=== PATIENT | male | born 1965 | race Caucasian/White ===

== ENCOUNTER 2017-08-20 09:16 | Observation (INO) | payer SELFPAY ==
[2017-08-20 09:59] LABS: Absolute Lymphocytes (CBC) 2.1 K/uL (0.7-4.9); Absolute Monocytes 0.7 K/uL (0.1-1.3); Absolute Neutrophil 4.2 K/uL (1.8-8.0); Basophils % 1.1 % (0-1.3); Eosinophils % 1.4 % (0-4.4); Hematocrit 56.5 % (39.6-49.0); Lymphocytes % 29.2 % (15.3-44.8); MCH 31.3 pg (27.0-35.0); MCV 93.1 fL (80-100); MPV 8.7 fL (7.6-11.3); Monocytes % 9.9 % (3.3-12.3); RBC Red Blood Cell Count 6.06 M/uL (4.33-5.43)
[2017-08-20] MEDS ORDERED: NA CHLORIDE 0.9% 1,000 ML ONE ×2 (10:06→10:50)
[2017-08-20 10:21] LABS: Potassium 4.5 mEq/L (3.6-5.0)
[2017-08-20 10:27] LABS: Bilirubin Direct 0.9 mg/dL (0-0.2); Bilirubin Total 3.1 mg/dL (0.3-1.2); Magnesium 1.5 mg/dL (1.8-2.5); Protein, Total 7.7 g/dL (6.0-8.3)
--- NOTE | 2017-08-20 10:27 | EKG ---
Test Date: 2017-08-20 Test Time: 09:36:03 [employer] Associate: OLENA MEASUREMENT RESULTS: Intervals: Rate: 115 TX: QRSD: 86 QT: 380 QTc: 525 [place]: P: TX: QRS: -11 T: 5 INTERPRETIVE STATEMENTS: Atrial fibrillation with rapid ventricular response Nonspecific ST abnormality, probably digitalis effect Abnormal ECG Compared to ECG 01/23/2009 05:22:27 ST (T wave) deviation now present Ventricular premature complex(es) no longer present T-wave abnormality no longer present Possible ischemia no longer present Electronically Signed On 08-20-17 10:26:59 CDT by Juan Nuñez
--- NOTE | 2017-08-20 10:48 | RAD REPORT ---
EXAM DESCRIPTION: CT - Angio Aorta For Dissection - 08/20/2017 9:54 am CLINICAL HISTORY: . Chest and abdominal pain COMPARISON: 2009 CT chest TECHNIQUE: Computed tomography angiography of the chest, abdomen pelvis were obtained. 100 cc Isovue 370 was administered intravenously. Coronal and sagittal reconstruction were performed. All CT scans are performed using dose optimization technique as appropriate and may include automated exposure control or mA/KV adjustment according to patient size. FINDINGS: An aortic dissection is not seen. An aortic aneurysm is not displayed. The celiac, SMA and DORIAN are patent . A lung consolidation is not present. A pericardial effusion is not seen. A pleural effusion is not n oted. Fatty infiltration of the liver is seen Spleen, pancreas adrenals kidneys demonstrate no significant abnormality. The appendix is normal. There no evidence diverticulitis. A left inguinal hernia contains fat IMPRESSION: Negative for an aortic dissection.
--- NOTE | 2017-08-20 10:52 | RAD REPORT ---
EXAM DESCRIPTION: RAD - Chest Single View - 08/20/2017 10:07 am CLINICAL HISTORY: Chest pain. COMPARISON: 01/22/2009 FINDINGS: Portable technique limits examination quality. The lungs are grossly clear. A portion of the left mid lung parenchyma is obscured by the pacer pack. The heart is normal in size. No displaced fractures.Single lead pacer device is present. IMPRESSION: No acute intrathoracic process suspected.
[2017-08-20] MEDS ORDERED: Magnesium Sulfate 2gm IVPB 2 G/50 ML BAG IV ONE (11:03)
[2017-08-20 11:20] LABS: Protime INR 1.3
--- NOTE | 2017-08-20 12:53 | EDPHYS ---
Physician Documentation [facility] Name: Jayson Burns Age: 52 yrs Sex: Male : 1965 Arrival Date: 08/20/2017 Time: 09:19 Bed 8 Private MD: None, None ED Physician Pascual Roach HPI: 08/20 13:03 This 52 yrs old Male presents to ER via Wheelchair with complaints of jr8 Shortness Of Breath, Dizziness. 13:03 The patient has shortness of breath at rest. Onset: The symptoms/episode began/occurred jr8 acutely, today. Duration: The symptoms are continuous. The patient's shortness of breath is aggravated by walking. Associated signs and symptoms: Pertinent positives: chest pain. Severity of symptoms: At their worst the symptoms were moderate in the emergency department the symptoms are unchanged. The patient has not experienced similar symptoms in the past. The patient has not recently seen a physician. Patient stated that he was working and stood up. [place] very short of breath with dizziness and chest tightness. Stated that sometimes he will become like this because of his heart but has never had it this bad. Patient anxious upon arrival to ED. Historical: - Allergies: 09:45 Codeine; iw - Home Meds: 09:45 carvedilol 25 mg oral tab 1 tab 2 times per day [Active]; Eliquis 5 mg oral tab 1 tab 2 iw times per day [Active]; Lasix 80 mg Oral tab 2 times per day [Active]; Spironolactone Oral [Active]; unknown BP med [Active]; - PMHx: 09:45 Atrial Fib; CHF; iw - PSHx: 09:45 Defibrillator; iw - Immunization history:: Adult Immunizations unknown. - Social history:: Smoking status: Patient uses tobacco products, denies chronic smoking, but will smoke occasionally, Patient uses alcohol, on a daily basis. claims drinking about a 6 pack/day. Patient/guardian denies using street drugs. ROS: 13:03 Eyes: Negative for injury, pain, redness, and discharge, ENT: Negative for injury, jr8 pain, and discharge, Neck: Negative for injury, pain, and swelling, Abdomen/GI: Negative for abdominal pain, nausea, vomiting, diarrhea, and constipation, Back: Negative for injury and pain, MS/Extremity: Negative for injury and deformity, Neuro: Negative for headache, weakness, numbness, tingling, and seizure. 13:03 Cardiovascular: Positive for chest pain, Negative for edema, orthopnea, palpitations, paroxysmal nocturnal dyspnea. 13:03 Respiratory: Positive for shortness of breath. 13:03 Skin: Positive for discoloration, of the right arm and left arm. Exam: 13:03 Head/Face: Normocephalic, atraumatic. Eyes: Pupils equal round and reactive to light, jr8 extra-ocular motions intact. Lids and lashes normal. Conjunctiva and sclera are non-icteric and not injected. Cornea within normal limits. Periorbital areas with no swelling, redness, or edema. ENT: Nares patent. No nasal discharge, no septal abnormalities noted. Tympanic membranes are normal and external auditory canals are clear. Oropharynx with no redness, swelling, or masses, exudates, or evidence of obstruction, uvula midline. Mucous membranes moist. Neck: Trachea midline, no thyromegaly or masses palpated, and no cervical lymphadenopathy. Supple, full range of motion without nuchal rigidity, or vertebral point tenderness. No Meningismus. Chest/axilla: Normal chest wall appearance and motion. Nontender with no deformity. No lesions are appreciated. Abdomen/GI: Soft, non-tender, with normal bowel sounds. No distension or tympany. No guarding or rebound. No evidence of tenderness throughout. Back: No spinal tenderness. No costovertebral tenderness. Full range of motion. Neuro: Awake and alert, GCS 15, oriented to person, place, time, and situation. Cranial nerves II-XII grossly intact. Motor strength 5/5 in all extremities. Sensory grossly intact. Cerebellar exam normal. Normal gait. 13:03 Cardiovascular: Rate: tachycardic, Rhythm: irregularly irregular, Pulses: pulse deficits are appreciated, thready, weak, bilateral upper extremities , Heart sounds: normal, normal S1and S2, no S3 or S4, no murmur, no rub, no gallop, Edema: is not appreciated. 13:03 Respiratory: the patient does not display signs of respiratory distress, Respirations: tachypnea, Breath sounds: are clear throughout, no bronchial sounds, no decreased breath sounds, no rales, rhonchi, no stridor, no wheezing. 13:03 Musculoskeletal/extremity: ROM: intact in all extremities, Perfusion: the extremity is cool, mottled, pale, noted to have sluggish capillary refill, Sensation intact. Vital Signs: 09:45 BP 123 / 66; Pulse 118; Resp 24 S; Pulse Ox 100% on R/A; iw 10:33 BP 94 / 67; Pulse 101; Resp 14; Pulse Ox 99% on R/A; ae1 10:53 Temp 97.5(O); Weight 104.33 kg (R); ae1 11:43 BP 111 / 64; Pulse 81; Resp 19; Pulse Ox 97% ; ae1 12:36 BP 95 / 70; Pulse 84; Resp 16; Pulse Ox 97% ; jl7 13:00 BP 96 / 68; Pulse 76; Resp 16; Pulse Ox 97% ; jl7 14:01 BP 117 / 75; Pulse 62; Resp 16; Pulse Ox 100% ; jl7 15:33 BP 100 / 71; Pulse 80; Resp 18; Pulse Ox 100% on R/A; ae1 MDM: 09:34 Patient medically screened. jr8 12:51 Data reviewed: vital signs, nurses notes, lab test result(s), EKG, radiologic studies, jr8 CT scan, plain films, ultrasound, and as a result, I will admit patient. Data interpreted: Pulse oximetry: on room air is 97 %. Interpretation: normal. Counseling: I had a detailed discussion with the patient and/or guardian regarding: the historical points, exam findings, and any diagnostic results supporting the discharge/admit diagnosis, lab results, radiology results, the need for further work-up and treatment in the hospital. Physician consultation: Augusta Berry MD was called at 12:52, was contacted at 12:52, regarding admission, to the telemetry unit. consult, patient's condition, and will see patient. 08/20 09:42 Order name: CPK; Complete Time: 10:54 08/20 09:42 Order name: Ckmb; Complete Time: :54 08/20 09:42 Order name: Basic Metabolic Panel; Complete Time: 10:54 08/20 09:42 Order name: BNP; Complete Time: 10:21 08/20 09:42 Order name: CBC with Diff; Complete Time: 10:13 08/20 09:42 Order name: LFT's; Complete Time: 10:54 08/20 09:42 Order name: Magnesium; Complete Time: :08/20 09:42 Order name: PT-INR; Complete Time: 11:08/20 09:42 Order name: Ptt, Activated; Complete Time: 11:08/20 09:42 Order name: Troponin (emerg Dept Use Only); Complete Time: 10:19 08/20 09:42 Order name: XRAY Chest (1 view); Complete Time: 10:54 08/20 10:47 Order name: Digoxin 08/20 10:48 Order name: Digoxin Level; Complete Time: 11:33 EDMS 08/20 12:36 Order name: Urine Dipstick--Ancillary (enter results); Complete Time: 15:31 ag 08/20 09:42 Order name: EKG; Complete Time: 09:43 08/20 09:42 Order name: Cardiac monitoring; Complete Time: 09:53 08/20 09:42 Order name: EKG - Nurse/Tech; Complete Time: :08/20 09:42 Order name: IV Saline Lock; Complete Time: :08/20 09:42 Order name: Labs collected and sent; Complete Time: 08/20 09:42 Order name: O2 Per Protocol; Complete Time: 08/20 09:42 Order name: O2 Sat Monitoring; Complete Time: :53 08/20 09:42 Order name: Urine Dipstick-Ancillary (obtain specimen); Complete Time: 12:19 08/20 09:42 Order name: CT Aorta for Dissection; Complete Time: 10:50 08/20 12:32 Order name: Upper Ext Artery Bilateral; Complete Time: 14:24 EDMS 08/20 15:53 Order name: US; Complete Time: 16:45 EDMS Administered Medications: 10:03 Drug: NS 0.9% 1000 ml Route: IV; Rate: 1000 ml; Site: right antecubital; jl7 10:45 Follow up: IV Status: Completed infusion jl7 10:53 Drug: NS 0.9% 1000 ml Route: IV; Rate: 1000 ml; Site: right antecubital; ae1 11:30 Follow up: IV Status: Completed infusion jl7 10:55 Drug: Magnesium Sulfate 2 grams Route: IVPB; Infused Over: 2 hrs; Site: right ae1 antecubital; 12:00 Follow up: Response: No adverse reaction; IV Status: Completed infusion jl7 Disposition: 08/20/17 12:53 Hospitalization ordered by Augusta Berry for Inpatient Admission. Preliminary diagnosis are Dehydration, Chest pain, unspecified, Hypotension. - Bed requested for Telemetry/MedSurg (Inpatient). - Status is Inpatient Admission. ae1 - Condition is Stable. - Problem is new. - Symptoms have improved. UTI on Admission? No Addendum: 08/23/2017 08:48 Co-signature as Attending Physician, Pascual Roach MD I agree with the assessment and c parrish plan of care. Signatures: Dispatcher [employer] EDPascual Lorenz MD MD cha Williams, Irene, RN RN iw Marcos Diego PA PA jr8 Catrachita Adame Andrea RN RN ae1 Markel Pak RN RN jl7 Corrections: (The following items were deleted from the chart) 08/20 14:51 12:53 Hospitalization Ordered by Augusta Berry MD for Inpatient Admission. Preliminary ag diagnosis is Dehydration; Chest pain, unspecified; Hypotension. Bed requested for Telemetry/MedSurg (Inpatient). Status is Inpatient Admission. Condition is Stable. Problem is new. Symptoms have improved. UTI on Admission? No. jr8 15:54 14:51 08/20/2017 12:53 Hospitalization Ordered by Augusta Berry MD for Inpatient ae1 Admission. Preliminary diagnosis is Dehydration; Chest pain, unspecified; Hypotension. Bed requested for Telemetry/MedSurg (Inpatient). Status is Inpatient Admission. Condition is Stable. Problem is new. Symptoms have improved. UTI on Admission? No. ag
--- NOTE | 2017-08-20 12:53 | ER ---
Nurse's Notes [facility] Name: Jayson Burns Age: 52 yrs Sex: Male : 1965 Arrival Date: 08/20/2017 Time: 09:19 Bed 8 Private MD: None, None Diagnosis: Dehydration;Chest pain, unspecified;Hypotension Presentation: 08/20 09:31 Presenting complaint: Patient states: got really dizzy, almost passed out and usually iw the feeling goes away but this time it didn't, was working at home, has hx of Afib, CHF, denies CP, c/o SOB, feels like lips are numb, felt like throat was closed. Transition of care: patient was not received from another setting of care. Onset of symptoms was August 20, 2017. 09:31 Method Of Arrival: Wheelchair iw 09:31 Acuity: MARILUZ 2 iw 15:35 Initial Sepsis Screen: Does the patient meet any 2 criteria? RR > 20 per min. HR > 90 ae1 bpm. Does the patient have a suspected source of infection? No. Patient's initial sepsis screen is negative. Triage Assessment: 09:45 General: Appears uncomfortable, Behavior is anxious. Pain: Denies pain. EENT: No signs jl7 and/or symptoms were reported regarding the EENT system. Neuro: Level of Consciousness is awake, alert, obeys commands, Oriented to person, place, time, situation. Cardiovascular: Heart tones S1 S2 present Pulses are palpable in right radial artery and left radial artery Rhythm is atrial fibrillation. Respiratory: Reports shortness of breath at rest Airway is patent Respiratory effort is even, unlabored, Respiratory pattern is regular, symmetrical, Breath sounds are clear bilaterally. Onset: The symptoms/episode began/occurred suddenly, the patient has mild shortness of breath. GI: No signs and/or symptoms were reported involving the gastrointestinal system. : No signs and/or symptoms were reported regarding the genitourinary system. Derm: Skin is skin appears purple to bilateral hands capillary refill >3 secs to bilateral fingers. Musculoskeletal: No signs and/or symptoms reported regarding the musculoskeletal system. Historical: - Allergies: 09:45 Codeine; iw - Home Meds: 09:45 carvedilol 25 mg oral tab 1 tab 2 times per day [Active]; Eliquis 5 mg oral tab 1 tab 2 iw times per day [Active]; Lasix 80 mg Oral tab 2 times per day [Active]; Spironolactone Oral [Active]; unknown BP med [Active]; - PMHx: 09:45 Atrial Fib; CHF; iw - PSHx: 09:45 Defibrillator; iw - Immunization history:: Adult Immunizations unknown. - Social history:: Smoking status: Patient uses tobacco products, denies chronic smoking, but will smoke occasionally, Patient uses alcohol, on a daily basis. claims drinking about a 6 pack/day. Patient/guardian denies using street drugs. Screenin:30 Abuse screen: Denies threats or abuse. Denies injuries from another. Nutritional jl7 screening: No deficits noted. Tuberculosis screening: No symptoms or risk factors identified. Fall Risk IV access (20 points). Total Epps Fall Scale indicates No Risk (0-24 pts). Assessment: 09:45 General: see triage assessment. jl7 10:36 Reassessment: Patient appears in no apparent distress at this time. Patient states he ae1 is feeling better. reports dizziness "only when I cough" Patient states feeling better. Patient states symptoms have improved. 11:30 Reassessment: Patient and/or family updated on plan of care and expected duration. Pain jl7 level reassessed. Patient is alert, oriented x 3, equal unlabored respirations, skin warm/dry/pink. 12:35 Reassessment: Patient appears in no apparent distress at this time. Patient states jl7 feeling better. Cardiovascular: Heart tones S1 S2 present Capillary refill is > 3 seconds in left fingers Rhythm is irregular. Cardiovascular: Capillary refill < 3 seconds in right fingers. 13:30 Reassessment: No changes from previously documented assessment. Patient and/or family jl7 updated on plan of care and expected duration. Pain level reassessed. Patient is alert, oriented x 3, equal unlabored respirations, skin warm/dry/pink. 13:50 Reassessment: Provider at bedside discussing plan of care. jl7 Vital Signs: 09:45 BP 123 / 66; Pulse 118; Resp 24 S; Pulse Ox 100% on R/A; iw 10:33 BP 94 / 67; Pulse 101; Resp 14; Pulse Ox 99% on R/A; ae1 10:53 Temp 97.5(O); Weight 104.33 kg (R); ae1 11:43 BP 111 / 64; Pulse 81; Resp 19; Pulse Ox 97% ; ae1 12:36 BP 95 / 70; Pulse 84; Resp 16; Pulse Ox 97% ; jl7 13:00 BP 96 / 68; Pulse 76; Resp 16; Pulse Ox 97% ; jl7 14:01 BP 117 / 75; Pulse 62; Resp 16; Pulse Ox 100% ; jl7 15:33 BP 100 / 71; Pulse 80; Resp 18; Pulse Ox 100% on R/A; ae1 ED Course: 09:19 Patient arrived in ED. mr 09:20 None, None is Private Physician. mr 09:33 Triage completed. iw 09:34 Marcos Diego PA is PHCP. jr8 09:34 Pascual Roach MD is Attending Physician. jr8 09:41 Inserted saline lock: 18 gauge in right antecubital area, using aseptic technique. ae1 Blood collected. 09:42 Inserted saline lock: 18 gauge in left antecubital area, using aseptic technique. jl7 09:52 Markel Pak RN is Primary Nurse. jl7 09:52 Arm band placed on right wrist. jl7 09:54 CT Aorta for Dissection In Process Unspecified. EDMS 10:00 Patient has correct armband on for positive identification. Bed in low position. Call 7 light in reach. Side rails up X 1. laboratory monitor on. Pulse ox on. NIBP on. 10:05 X-ray completed. Portable x-ray completed in exam room. Patient tolerated procedure jb2 well. 10:08 XRAY Chest (1 view) In Process Unspecified. EDMS 10:21 EKG done, by ED staff. tc 11:43 Digoxin Sent. ae1 12:41 Patient taken to ultrasound. cy 12:52 Augusta Berry MD is Hospitalizing Provider. jr8 13:16 Upper Ext Artery Bilateral In Process Unspecified. EDMS 14:45 Ultrasound completed. Patient tolerated well. cy 15:36 No provider procedures requiring assistance completed. Patient admitted, IV remains in ae1 place. Administered Medications: 10:03 Drug: NS 0.9% 1000 ml Route: IV; Rate: 1000 ml; Site: right antecubital; jl7 10:45 Follow up: IV Status: Completed infusion jl7 10:53 Drug: NS 0.9% 1000 ml Route: IV; Rate: 1000 ml; Site: right antecubital; ae1 11:30 Follow up: IV Status: Completed infusion jl7 10:55 Drug: Magnesium Sulfate 2 grams Route: IVPB; Infused Over: 2 hrs; Site: right ae1 antecubital; 12:00 Follow up: Response: No adverse reaction; IV Status: Completed infusion jl7 Outcome: 12:53 Decision to Hospitalize by Provider. jr8 15:36 Admitted to Tele accompanied by tech, family with patient, via wheelchair, with chart, ae1 Report called to STEVAN Meeks 15:36 Admitted to Tele accompanied by tech, family with patient, via stretcher, room 217. 15:36 Condition: stable 15:36 Condition: stable 15:36 Instructed on the need for admit, Demonstrated understanding of instructions. 15:54 Patient left the ED. ae1 Signatures: Dispatcher [employer] EDDonna Murray mr Burch, Chuck jb2 Stephanie Edwards, RN RN iw Marcos Diego PA PA jr8 Melissa Lucas, fortune teller EKG Ttc Raz Mills RN RN ae1 Markel Pak RN RN jl7 Kim Sen Corrections: (The following items were deleted from the chart) 15:40 15:36 Admitted to Tele ae1 ae1
--- NOTE | 2017-08-20 14:20 | RAD REPORT ---
EXAM DESCRIPTION: VAS - Upper Ext Artery Bilateral - 08/20/2017 1:21 pm CLINICAL HISTORY: Arm pain/arm weakness/cyanosis COMPARISON: None FINDINGS: The waveforms of the right common carotid, right subclavian, right axillary, right brachia l, right radial and right ulnar arteries are triphasic. The waveforms of the left common carotid , left axillary, left brachial, and left radial arteries are triphasic. The waveform of the left ulnar artery is biphasic. An arterial occlusion is not seen. A significant stenosis is not visualized. IMPRESSION: Unremarkable exam
[2017-08-20 15:13] LABS: Urine Blood TRACE (NEG); Urine Glucose NEGATIVE (NEG); Urine Protein NEGATIVE (NEG)
--- NOTE | 2017-08-20 15:53 | RAD REPORT ---
EXAM DESCRIPTION: VASCarotid Artery Bilateral08/20/2017 3:39 pm CLINICAL HISTORY: Syncope COMPARISON: None FINDINGS: The velocity of the right internal carotid artery equals 51 cm/sec. The right ICA/CCA rati o 0.8 The velocity of the left internal carotid artery equals 37 cm/sec. The left ICA/CCA ratio 0.5 Mild plaque is present within the carotid arteries. The vertebral arteries demonstrate antegrade flow IMPRESSION: Mild plaque within the carotid arteries without evidence of a hemodynamically significan t stenosis
[2017-08-20] MEDS ORDERED: ONDANSETRON 4 MG/2 ML VIAL IV PRN (16:14)
[2017-08-20] MEDS ORDERED: ACETAMINOPHEN 500 MG TAB PO PRN (16:14)
[2017-08-20 16:30] VITALS: BMI 34.9
[2017-08-20] MEDS ORDERED: ENOXAPARIN 40 MG/0.4 ML SQ SCH (17:00)
--- NOTE | 2017-08-20 17:03 | P.HP ---
Certification for Inpatient Patient admitted to: Observation With expected LOS: <2 Midnights Patient will require the following post-hospital care: None Practitioner: I am a practitioner with admitting privileges, knowledge of patient current condition, hospital course, and medical plan of care. Services: Services provided to patient in accordance with Admission requirements found in Title 42 Section 412.3 of the Code of Federal Regulations Patient History Date of Service: 08/20/17 Primary Care Provider: OOT Reason for admission: near Syncope History of Present Illness: This is a 52-year-old male with significant past medical history of CHF, atrial fibrillation. Status post defibrillator placement alcohol abuse who presented to the ED complaining of having near-syncopal episode in the morning today. 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 Patient stated that usually he has those feelings which goes away in about 1-2 second however this time unless than usual and thus he decided to come to the ER. In the ER patient was monitored and noted to have bilateral upper extremity that were purple in color and hypotensive. Patient was given some fluids in the ER which resolved this bilateral discoloration along with hypertension. Patient stated that he also has been having a lot of cramps for past couple of days. Patient denies having any fever, nausea vomiting abdominal pain or diarrhea at this time. He does states that he has chills at the time then. Allergies codeine Adverse Reaction (Intermediate, Verified 08/20/17 16:14) Hives/Rash - Past Medical/Surgical History Has patient received pneumonia vaccine in the past: Yes Diabetic: No -: chf -: afib -: icd -: umbilical hernia - Family History Mother -: Heart disease, Cancer Father -: Cancer - Social History Smoking Status: Current every day smoker Alcohol use: Yes CD- Drugs: Yes Caffeine use: No Place of Residence: Home Review of Systems General: As per HPI Physical Examination - Vital Signs Temperature: 97.5 F Blood Pressure: 100/71 Pulse: 80 Respirations: 18 - Physical Exam General: Alert, In no apparent distress, Oriented x3 HEENT: Atraumatic Neck: Supple Respiratory: Clear to auscultation bilaterally, Normal air movement Cardiovascular: Normal S1 S2, Irregular heart rate/rhythm Gastrointestinal: Normal bowel sounds, Soft and benign, Non-distended, No tenderness Musculoskeletal: No tenderness Integumentary: No rashes Neurological: Normal speech, Normal strength at 5/5 x4 extr, Normal tone Lymphatics: No axilla or inguinal lymphadenopathy - Studies Laboratory Data (last 24 hrs) 08/20/17 09:40: PT 15.4 H, INR 1.30, APTT 35.8 08/20/17 09:40: WBC 7.2, Hgb 19.0 H, Hct 56.5 H, Plt Count 223 08/20/17 09:40: B-Natriuretic Peptide 144 H 08/20/17 09:40: Sodium 137, Potassium 4.5, BUN 12, Creatinine 1.52 H, Glucose 121 H, Magnesium 1.5 L, Total Bilirubin 3.1 H, AST 168 H, ALT 119 H, Alkaline Phosphatase 92 Assessment and Plan - Problems (Diagnosis) (1) Near syncope Current Visit: Yes Status: Acute Plan: Pt with Episode of Near Syncope -Head CT negative for acute abnormality -ECHO pending -Carotid u/s with Plaquing -Lab work pending -PT and IV fluids with Caution -Orthostatic pending as well. (2) Alcohol abuse Current Visit: Yes Status: Chronic Plan: Ativan PRN (3) Liver cirrhosis Current Visit: Yes Status: Chronic Plan: Chronic liver Cirrhosis with acute elevation of LFT's -ABD US complete Qualifiers: Hepatic cirrhosis type: alcoholic cirrhosis Ascites presence: without ascites Qualified Code(s): K70.30 - Alcoholic cirrhosis of liver without ascites (4) CHF (congestive heart failure) Current Visit: Yes Status: Acute Plan: Chronic systolic HF -Per Pt his last echo with EF of 35% -S/P Defibrillator placement. -IV fluids with caution Qualifiers: Heart failure type: systolic Heart failure chronicity: chronic Qualified Code(s): I50.22 - Chronic systolic (congestive) heart failure (5) Afib Current Visit: Yes Status: Chronic Plan: Chronic Afib -Will restart home medication Qualifiers: Atrial fibrillation type: chronic Qualified Code(s): I48.2 - Chronic atrial fibrillation (6) Ringworm Current Visit: Yes Status: Acute Plan: Topical Ketoconozole ordered Discharge Plan: Home Plan to discharge in: 24 Hours - Advance Directives Does patient have a Living Will: No Does patient have a Durable POA for Healthcare: No - Code Status/Comfort Care Code Status Assessed: Yes Critical Care: No
--- NOTE | 2017-08-20 17:28 | ECHO ---
HEIGHT: 5 ft 8 in WEIGHT: 230 lb 0 oz DATE OF STUDY: 08/20/[address]: Augusta Berry MD 2-DIMENSIONAL: YES M.MODE: YES DOPPLER: YES COLOR FLOW: YES TDS: PORTABLE: DEFINITY: BUBBLE STUDY: DIAGNOSIS: NEAR SYNCOPE CARDIAC HISTORY: CATHERIZATION: YES SURGERY: NO PROSTHETIC VALVE: NO PACEMAKER: YES MEASUREMENTS (cm) DIASTOLIC (NORMALS) SYSTOLIC (NORMALS) IVSd 0.8 (0.6-1.2) LA Diam 4.1 (1.9-4.0) LVEF 41% LVIDd 4.7 (3.5-5.7) LVIDs 3.7 (2.0-3.5) %FS 20% LVPWd 0.9 (0.6-1.2) Ao Diam 3.2 (2.0-3.7) 2 DIMENSIONAL ASSESSMENT: RIGHT ATRIUM: NORMAL LEFT ATRIUM: DILATED RIGHT VENTRICLE: NORMAL LEFT VENTRICLE: NORMAL TRICUSPID VALVE: NORMAL MITRAL VALVE: NORMAL PULMONIC VALVE: NORMAL AORTIC VALVE: NORMAL PERICARDIAL EFFUSION: NONE AORTIC ROOT: NORMAL LEFT VENTRICULAR WALL MOTION: MILD GLOBAL HYPOKINESIS DOPPLER/COLOR FLOW: MILD TRICUSPID REGURGITATION COMMENTS: MILD TRICUSPID REGURGITATION. NORMAL RIGHT VENTRICULAR SYSTOLIC PRESSURE. TECHNICALLY DIFFICULT STUDY. MILD GLOBAL HYPOKINESIS. TECHNOLOGIST: EMI ROSAS
[2017-08-20 18:31] LABS: Thyroid Stimulating Hormone 0.98 uIU/mL (0.34-5.60)
[2017-08-20 18:32] LABS: CKMB Creatine Kinase MB 12.1 ng/ml (0.3-4.0)
[2017-08-20 18:53] LABS: Urine Appearance CLEAR; Urine Blood NEGATIVE (NEG); Urine Glucose NEGATIVE (NEG); Urine Protein 1+ (NEG); Urine Specific Gravity >=1.030 (1.005-1.030); Urine pH 5.5 (5.0-7.0)
[2017-08-20 18:55] LABS: Urine Bilirubin NEGATIVE (NEG); Urine Color DK YELLOW; Urine Microscopic Reflex ORDER UMIC
[2017-08-20 19:02] LABS: Urine Amorphous Sediment 1+ /HPF (NONE SEEN); Urine Bacteria <20 /HPF (NONE SEEN); Urine Culture Reflex Order REFLEXED; Urine RBC <5 /HPF (NONE SEEN)
--- NOTE | 2017-08-20 20:12 | RAD REPORT ---
EXAM DESCRIPTION: CT - Head Brain Wo Cont - 08/20/2017 7:39 pm CLINICAL HISTORY: Syncope COMPARISON: None. TECHNIQUE: Computed axial tomography of the head was obtained. IV contrast was not requested. All CT scans are performed using dose optimization technique as appropriate and may include automated exposure control or mA/KV adjustment according to patient size. FINDINGS: An intracranial bleed is not seen . The ventricles are normal in caliber. No extra-axial fluid collection is noted. Fluid within the sinuses/ mastoids is not seen. IMPRESSION: No acute intracranial abnormality is seen. If patient's symptoms persist MRI of the bra in would be recommended.
[2017-08-20] MEDS: CARVEDILOL 25 MG TAB PO SCH (20:47)
[2017-08-20] MEDS: APIXABAN 5 MG TABLET PO SCH (20:47)
[2017-08-20] MEDS ORDERED: KETOCONAZOLE CREAM 15 GM TUBE TOP SCH (21:00)
[2017-08-20] MEDS ORDERED: TEMAZEPAM 15 MG CAP PO ONE ×2 (22:58→23:00)
[2017-08-21 01:56] VITALS: O2SAT 95
[2017-08-21 02:15] LABS: CKMB Creatine Kinase MB 8.9 ng/ml (0.3-4.0)
[2017-08-21 05:38] LABS: Absolute Lymphocytes (CBC) 1.9 K/uL (0.7-4.9); Absolute Monocytes 0.6 K/uL (0.1-1.3); Absolute Neutrophil 2.2 K/uL (1.8-8.0); Basophils % 0.5 % (0-1.3); Eosinophils % 2.3 % (0-4.4); Hematocrit 52.1 % (39.6-49.0); Lymphocytes % 39.5 % (15.3-44.8); MCH 31.1 pg (27.0-35.0); MCV 93.9 fL (80-100); MPV 9.1 fL (7.6-11.3); Monocytes % 12.2 % (3.3-12.3); RBC Red Blood Cell Count 5.55 M/uL (4.33-5.43)
[2017-08-21 06:13] LABS: Bilirubin Total 1.7 mg/dL (0.3-1.2); Magnesium 1.9 mg/dL (1.8-2.5); Phosphorus 3.5 mg/dL (2.5-4.3); Potassium 3.4 mEq/L (3.6-5.0); Protein, Total 5.7 g/dL (6.0-8.3)
[2017-08-21] MEDS ORDERED: NA CHLORIDE 0.9% 250 ML ONE (07:41)
[2017-08-21] MEDS: KCL 20 MEQ/100 mL IVPB 20 MEQ/100 ML BAG IV SCH ×2 (07:44→10:25)
[2017-08-21] MEDS ORDERED: ASPIRIN EC 81 MG TAB PO SCH (09:00)
[2017-08-21] MEDS ORDERED: SPIRONOLACTONE 25 MG TABLET PO SCH (09:00)
[2017-08-21] MEDS: CARVEDILOL 25 MG TAB PO SCH (09:00)
[2017-08-21] MEDS: APIXABAN 5 MG TABLET PO SCH (09:15)
[2017-08-21 09:56] LABS: CKMB Creatine Kinase MB 7.5 ng/ml (0.3-4.0)
--- NOTE | 2017-08-21 11:07 | P.SSS ---
Patient History Date of Service: 08/21/17 Primary Care Provider: TOBY Reason for admission: near Syncope History of Present Illness: This is a 52-year-old male with significant past medical history of CHF, atrial fibrillation. Status post defibrillator placement alcohol abuse who presented to the ED complaining of having near-syncopal episode in the morning today. 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 Patient stated that usually he has those feelings which goes away in about 1-2 second however this time unless than usual and thus he decided to come to the ER. In the ER patient was monitored and noted to have bilateral upper extremity that were purple in color and hypotensive. Patient was given some fluids in the ER which resolved this bilateral discoloration along with hypertension. Patient stated that he also has been having a lot of cramps for past couple of days. Patient denies having any fever, nausea vomiting abdominal pain or diarrhea at this time. He does states that he has chills at the time then. Allergies codeine Adverse Reaction (Intermediate, Verified 08/20/17 16:14) Hives/Rash Home Medications: Apixaban [Eliquis *] 5 mg PO BID 08/20/17 Aspirin [Aspirin EC 81 MG] 1 tab PO DAILY 08/20/17 Digoxin [Lanoxin*] 0.125 mg PO DAILY 08/20/17 Spironolactone [Aldactone*] 25 mg PO DAILY 08/20/17 Carvedilol [Coreg*] 12.5 mg PO BID 6AM 6PM #60 tab 08/21/17 Furosemide [Lasix] 40 mg PO BID #60 tablet 08/21/17 - Past Medical/Surgical History Has patient received pneumonia vaccine in the past: Yes Diabetic: No -: chf -: afib -: icd -: umbilical hernia - Family History Mother -: Heart disease, Cancer Father -: Cancer - Social History Smoking Status: Current every day smoker Alcohol use: Yes CD- Drugs: Yes Caffeine use: No Place of Residence: Home Review of Systems General: As per HPI Physical Examination - Vital Signs Temperature: 97.9 F Blood Pressure: 112/57 Pulse: 92 Respirations: 16 Pulse Ox (%): 100 - Physical Exam General: Alert, In no apparent distress HEENT: Atraumatic, PERRLA, Mucous membr. moist/pink, EOMI, Sclerae nonicteric Neck: Supple, 2+ carotid pulse no bruit, No LAD, Without JVD or thyroid abnormality Respiratory: Clear to auscultation bilaterally, Normal air movement Cardiovascular: Regular rate/rhythm, Normal S1 S2 Gastrointestinal: Normal bowel sounds, No tenderness Musculoskeletal: No tenderness Integumentary: No rashes Neurological: Normal gait, Normal speech, Normal strength at 5/5 x4 extr, Normal tone, Normal affect Lymphatics: No axilla or inguinal lymphadenopathy - Studies Laboratory Data (last 24 hrs) 08/20/17 09:40: PT 15.4 H, INR 1.30, APTT 35.8 - Diagnosis (Problem(s)) (1) Near syncope Current Visit: Yes Status: Acute (2) Alcohol abuse Current Visit: Yes Status: Chronic (3) Liver cirrhosis Current Visit: Yes Status: Chronic Qualifiers: Hepatic cirrhosis type: alcoholic cirrhosis Ascites presence: without ascites Qualified Code(s): K70.30 - Alcoholic cirrhosis of liver without ascites (4) CHF (congestive heart failure) Current Visit: Yes Status: Acute Qualifiers: Heart failure type: systolic Heart failure chronicity: chronic Qualified Code(s): I50.22 - Chronic systolic (congestive) heart failure (5) Afib Current Visit: Yes Status: Chronic Qualifiers: Atrial fibrillation type: chronic Qualified Code(s): I48.2 - Chronic atrial fibrillation (6) Ringworm Current Visit: Yes Status: Acute Treatment Summary: Overall during the hospital stay patient remained stable The patient was initially admitted to the hospital for near syncope most likely secondary to polypharmacy vs alcohol abuse. Cardiology was consulted. Who saw the patient here in the hospital and is recommended that his Coreg be cut down to half. Patient had been taking Coreg, Lasix, spironolactone, losartan all at 1 time in the morning time which could be causing his near syncopal episodes. Patient was educated extensively to space out his medication in the unit dose of Coreg. Patient was also educated extensively on alcohol abstinence at this time. While here in the hospital patient was also found to be very dehydrated and thus was given IV fluids along with abdominal ultrasound that was done to evaluate for elevated T biliRubin. Abdominal ultrasound was consistent with liver cirrhosis and no acute findings. Patient was again educated extensively on alcohol abstinence and was asked to follow up with his primary care provider in about 1-2 weeks post discharge from here. Patient was then discharged home under stable condition - Disposition Disposition: ROUTINE DISCHARGE Condition: GOOD Patient Discharge Instructions: Please f/u with PCP and Cardiology in 1 to 2 weeks post discharge. Medication. Coreg 12.5 daily in AM. Lasix 40mg Twice daily in AM and PM. Spironolactone 25mg daily in AM. Digoxin once a day in PM. Hold losartan for now till you see PCP. Keep a BP log to ensure your are not getting hypotensive. Diet: Regular Activity: Ad ashlee
--- NOTE | 2017-08-21 11:49 | RAD REPORT ---
EXAM DESCRIPTION: US - Abdomen Exam Complete - 08/21/2017 10:16 am CLINICAL HISTORY: Cirrhosis COMPARISON: CT study August 20 FINDINGS: Gallbladder size is normal. No gallstones, wall thickening or pericholecystic fluid. Commo n bile duct is normal with no common duct stone identified. The liver is 16 cm in maximum dimension w ith the spleen 10 cm in maximum dimension. No focal liver or spleen lesion. No abnormal nodularity to the liver capsule. Liver parenchymal echogenicity is heterogeneous but not definitive for fatty infi ltration. . The pancreas is normal. No hydronephrosis or suspicious mass in either kidney. Aorta is normal is size. No ascites or bulky lymphadenopathy. IMPRESSION: Heterogeneous liver parenchyma with no focal liver lesion, nodular capsule or other find ings of advanced cirrhosis. No gallbladder or biliary tree dilatation.
[2017-08-21] MEDS ORDERED: KETOCONAZOLE CREAM 15 GM TUBE TOP SCH (12:00)
[2017-08-21 13:01] VITALS: BP 102/71; TEMP 97.6
--- NOTE | 2017-08-21 15:49 | CON ---
Date of Consultation: 08/20/[address] Berry's office 08/20/2017. The patient was seen on 08/20/2017. Reason For Consultation: Short of breath, dizziness, and atrial fibrillation. History Of Present Illness: Mr. Burns is a 52-year-old male, who has a history of chronic atrial f ibrillation, chronic systolic congestive heart failure, status post defibrillator pacemaker. He came in was noted to have negative troponin, negative BNP, negative chest x-ray, normal CTA of the chest, normal CT of the head, normal carotid, did have atrial fibrillation with rapid ventricula r response. He was hypotensive. Echocardiography, ejection fraction of 41% which is chronic, [employer] difficult study. His creatinine is 1.42. He is feeling better today. He normally sees __ . Allergies: CODEINE. Review of Systems: Negative. Social History: Negative. Family History: Noncontributory. Medications: At home include Coreg, Eliquis, Lasix, and Aldactone. Physical Examination: Vital Signs: Stable. He was in atrial fibrillation with rate of 80. HEENT: Negative. Neck: Supple with no bruit. Chest: Clear. Cardiac: Revealed atrial fibrillation. Abdomen: Benign. Extremities: Revealed no clubbing, cyanosis, or edema. Diagnostic Data: As stated earlier. His LFTs are elevated. Impression And Plan: 1.Chronic systolic congestive heart failure that is stable. 2.Chronic atrial fibrillation. 3.Hypotension probably secondary to over medication. . Continue the Eliquis and Lasix an d Aldactone for his congestive heart failure and atrial fibrillation. His echocardiogram was done ye showing ejection fraction 41%. All his workup for presyncope had been negative including car otid, CT head, CT angiogram, chest x-ray. He is having an abdominal ultrasound done for his elevated liver function tests. His ICD seems to be functioning properly. He has not had any shocks. From m y standpoint, we can decrease beta blockers. He can go home whenever it is okay with Dr. Berry. He can see as an outpatient on a lower dose. He should probably have an outpatient Karol can sometimes at his convenience. HEIDI/MICHAEL Voice ID: [id number] Report ID: [id number]
[2017-08-21] MEDS ORDERED: CARVEDILOL 12.5 MG TAB PO SCH (18:00)
== END 2017-08-21 13:09 | disposition home or self-care (01) ==
LOC: ER 09:16 → ERHOLD 12:53 → INTOOBSV 12:53 → 2ND 15:35
PROVIDERS: ADMIT Family Medicine; ATTEND Family Medicine
DX: R55 Syncope and collapse (principal); I95.2 Hypotension due to drugs; K70.30 Alcoholic cirrhosis of liver without ascites; I50.22 Chronic systolic (congestive) heart failure; I48.2 Chronic atrial fibrillation; B35.9 Dermatophytosis, unspecified; F10.10 Alcohol abuse, uncomplicated; Z95.810 Presence of automatic (implantable) cardiac defibrillator; T50.905A Adverse effect of unspecified drugs, medicaments and biological substances, initial encounter
CPT/HCPCS: 36415; 70450; 71045; 71275; 74175; 76700; 80048; 80053; 80061; 80076; 80162; 81003; 81015; 82550; 82553; 83735; 83880; 84100; 84443; 84484; 85025; 85610; 85730; 87086; 87088; 93005; 93306; 93880; 93930; 96361; 96365; 97163; 99285; G0378; J3475; J7030; Q9967

== ENCOUNTER 2017-09-22 11:18 | Inpatient (IN) | payer SELFPAY ==
[2017-09-22] MEDS ORDERED: LEVALBUTEROL 1.25 MG/3 ML NEB ONE (11:59)
[2017-09-22] MEDS ORDERED: METOPROLOL TARTRATE 5 MG/5 ML INJ IV ONE ×2 (12:09→12:21)
[2017-09-22 12:18] LABS: Absolute Lymphocytes (CBC) 1.2 K/uL (0.7-4.9); Absolute Monocytes 0.6 K/uL (0.1-1.3); Absolute Neutrophil 4.5 K/uL (1.8-8.0); Eosinophils % 0.8 % (0-4.4); Hematocrit 49.6 % (39.6-49.0); Lymphocytes % 18.1 % (15.3-44.8); MCH 31.4 pg (27.0-35.0); MPV 9.8 fL (7.6-11.3); Monocytes % 9.3 % (3.3-12.3); RBC Red Blood Cell Count 5.27 M/uL (4.33-5.43)
[2017-09-22 12:21] LABS: Bicarbonate 22 mEq/L (21-31); Glucose Level 123 mg/dL (65-120); Potassium 3.7 mEq/L (3.6-5.0); Sodium Level 139 mEq/L (135-145)
[2017-09-22 12:24] LABS: Protime INR 1.15
[2017-09-22] MEDS ORDERED: DIGOXIN 0.25 MG/ML AMP ONE (12:25)
[2017-09-22 12:28] LABS: ALT/SGPT 66 IU/L (10-60); AST/SGOT 105 IU/L (10-42); Albumin 3.2 g/dL (3.2-5.5); Alkaline Phosphatase 74 IU/L (42-121); BUN Blood Urea Nitrogen 8 mg/dL (6-20); Bilirubin Direct 1.3 mg/dL (0-0.2); Bilirubin Total 3.7 mg/dL (0.3-1.2); Creatine Phosphokinase 286 IU/L (22-269); Magnesium 1.8 mg/dL (1.8-2.5); Protein, Total 6.4 g/dL (6.0-8.3)
--- NOTE | 2017-09-22 13:26 | RAD REPORT ---
EXAM DESCRIPTION: CT - Chest For Pe Angio - 09/22/2017 1:04 pm CLINICAL HISTORY: Chest pain, shortness of breath, productive cough, bilateral lower extremity pain and swelling COMPARISON: Chest exam same date, CT chest January 2009 TECHNIQUE: Dynamically enhanced 3 mm thick images of the chest were obtained during administration o f approximately 150mL Isovue 370 IV contrast. Coronal and oblique reconstruction images were generate d and reviewed. Exam utilizes a protocol to evaluate the pulmonary arterial tree. All CT scans are performed using dose optimization technique as appropriate and may include automated exposure control or mA/KV adjustment according to patient size. FINDINGS: No pulmonary emboli are identified. Far peripheral right lung base branch assessment is li mited due to motion. Likelihood of pulmonary embolism is felt be quite low. The aorta as imaged shows no acute or suspicious finding. Cardiomegaly is present. No pericardial thi ckening or effusion. No suspicious mass or consolidation. There is hazy ground-glass opacification in right upper lobe and right lower lobe. Minimal atelectasis in each lung field. There is small to moderate left-side and m oderate right-sided pleural effusions. No pneumothorax. No pleural based mass. No mediastinal or hilar suspicious masses. No chest wall masses or abnormal axillary lymphadenopathy. IMPRESSION: No pulmonary emboli identified. Interstitial and alveolar opacities are suspicious for a mild failure or volume overload. Small to moderate left-side and moderate right-sided pleural effusions.
--- NOTE | 2017-09-22 13:30 | RAD REPORT ---
EXAM DESCRIPTION: RAD - Chest Single View - 09/22/2017 1:24 pm CLINICAL HISTORY: Shortness of breath, productive cough COMPARISON: August 20, 2017 TECHNIQUE: AP portable chest image was obtained 1224 hours . FINDINGS: Hazy opacification present over the right lower lung field. Interstitial markings overall are increased slightly from the comparison. Cardiac silhouette has increased over the prior study. Va sculature is minimally prominent. Single lead pacemaker remains in place. No pneumothorax or large pl eural effusion identified. No gross bony abnormality seen. No acute aortic findings suspected. IMPRESSION: Heart and vasculature have enlarged since comparison. There is hazy lung parenchymal opa cification, primarily right base. CHF/ volume overload is favored. A mild or early right base pneumonia is not excluded but felt to be unlikely.
--- NOTE | 2017-09-22 13:50 | RAD REPORT ---
EXAM DESCRIPTION: VAS - Extrem Venous W Compress [place] - 09/22/2017 1:26 pm CLINICAL HISTORY: Bilateral leg pain and swelling, shortness of breath COMPARISON: None. TECHNIQUE: Real-time sonographic evaluation of the bilateral lower extremity deep venous systems was performed. FINDINGS: Normal compressibility, flow augmentation, phasic flow and spontaneous flow are identified in the left and right lower extremity deep venous systems. No intraluminal filling defects seen. IMPRESSION: No DVT in either lower extremity.
--- NOTE | 2017-09-22 14:22 | EDPHYS ---
Physician Documentation [facility] Name: Jayson Burns Age: 52 yrs Sex: Male : 1965 Arrival Date: 09/22/2017 Time: 11:20 Bed 7 Private MD: out of town, doctor ED Physician Brad Lowery HPI: 09/22 11:49 This 52 yrs old Male presents to ER via Wheelchair with complaints of kdr Breathing Difficulty. 11:49 The patient has shortness of breath at rest, with light activity. Onset: The kdr symptoms/episode began/occurred gradually, yesterday. Duration: The symptoms are continuous, and are steadily getting worse. The patient's shortness of breath is aggravated by coughing, exertion, light activity, talking, walking. Associated signs and symptoms: Pertinent positives: productive cough, nausea, Pertinent negatives:. 12:10 Severity of symptoms: At their worst the symptoms were moderate in the emergency kdr department the symptoms are unchanged are worse. The patient has not experienced similar symptoms in the past. The patient has not recently seen a physician. Historical: - Allergies: 11:27 Codeine; aj - Home Meds: 11:27 carvedilol 25 mg Oral tab 1 tab 2 times per day [Active]; Eliquis 5 mg Oral tab 1 tab 2 aj times per day [Active]; Lasix 80 mg Oral tab 2 times per day [Active]; Spironolactone Oral [Active]; - PMHx: 11:27 Atrial Fib; CHF; aj - PSHx: 11:27 Defibrillator; aj - Immunization history:: Adult Immunizations up to date. - Social history:: Smoking status: Patient uses tobacco products, smokes one-half pack cigarettes per day. - Ebola Screening: : Patient negative for fever greater than or equal to 101.5 degrees Fahrenheit, and additional compatible Ebola Virus Disease symptoms Patient denies exposure to infectious person Patient denies travel to an Ebola-affected area in the 21 days before illness onset No symptoms or risks identified at this time. ROS: 12:12 Constitutional: Negative for fever, chills, and weight loss, Eyes: Negative for injury, kdr pain, redness, and discharge, ENT: Negative for injury, pain, and discharge, Neck: Negative for injury, pain, and swelling, Abdomen/GI: Negative for abdominal pain, nausea, vomiting, diarrhea, and constipation, Back: Negative for injury and pain, : Negative for injury, bleeding, discharge, and swelling, MS/Extremity: Negative for injury and deformity, Skin: Negative for injury, rash, and discoloration, Neuro: Negative for headache, weakness, numbness, tingling, and seizure activity. Psych: Negative for depression, anxiety, suicide ideation, homicidal ideation, and hallucinations, Allergy/Immunology: Negative for hives, rash, and allergies, Endocrine: Negative for neck swelling, polydipsia, polyuria, polyphagia, and marked weight changes, Hematologic/Lymphatic: Negative for swollen nodes, abnormal bleeding, and unusual bruising. 12:12 Cardiovascular: Positive for palpitations, Negative for edema, orthopnea, paroxysmal nocturnal dyspnea. Exam: 12:15 Constitutional: This is a well developed, well nourished patient who is awake, alert, kdr and in mild to moderate distress. Head/Face: Normocephalic, atraumatic. Eyes: Pupils equal round and reactive to light, extra-ocular motions intact. Lids and lashes normal. Conjunctiva and sclera are non-icteric and not injected. Cornea within normal limits. Periorbital areas with no swelling, redness, or edema. Neck: Trachea midline, no thyromegaly or masses palpated, and no cervical lymphadenopathy. Supple, full range of motion without nuchal rigidity, or vertebral point tenderness. No Meningismus. Chest/axilla: Normal chest wall appearance and motion. Nontender with no deformity. No lesions are appreciated. Respiratory: Lungs have equal breath sounds bilaterally, clear to auscultation and percussion. No rales, rhonchi or wheezes noted. No increased work of breathing, no retractions or nasal flaring. Abdomen/GI: Soft, non-tender, with normal bowel sounds. No distension or tympany. No guarding or rebound. No evidence of tenderness throughout. Back: No spinal tenderness. No costovertebral tenderness. Full range of motion. Skin: Warm, dry with normal turgor. Normal color with no rashes, no lesions, and no evidence of cellulitis. MS/ Extremity: Pulses equal, no cyanosis. Neurovascular intact. Full, normal range of motion. Neuro: Awake and alert, GCS 15, oriented to person, place, time, and situation. Cranial nerves II-XII grossly intact. Motor strength 5/5 in all extremities. Sensory grossly intact. Cerebellar exam normal. Normal gait. Psych: Awake, alert, with orientation to person, place and time. Behavior, mood, and affect are within normal limits. 12:15 Cardiovascular: Rate: tachycardic, Rhythm: irregularly irregular, Pulses: no pulse deficits are appreciated, Heart sounds: Edema: 1+ edema to level of left midcalf, left ankle and left foot, JVD: is not appreciated. 12:15 Respiratory: mild respiratory distress is noted, Respirations: normal, Breath sounds: rales, that are mild, are heard diffusely. Vital Signs: 11:27 BP 214 / 181; Pulse 95; Resp 24; Temp 98.6; Pulse Ox 98% on R/A; Weight 95.25 kg; aj Height 5 ft. 8 in. (172.72 cm); 11:41 BP 135 / 94; Pulse 92; Resp 24; Pulse Ox 97% on R/A; hb 12:05 BP 134 / 81; Pulse 175; Resp 24; Pulse Ox 98% on 10% Nebulizer Mask; hb 12:12 BP 125 / 88; Pulse 145; hb 12:35 BP 129 / 95; Pulse 127; Resp 24; Pulse Ox 96% on R/A; dh3 13:31 BP 135 / 84; Pulse 126; Resp 24; Pulse Ox 99% on R/A; hb 14:30 BP 142 / 100; Pulse 110; Resp 15; Pulse Ox 100% on R/A; hb 15:30 BP 155 / 102; Pulse 116; Resp 25; Pulse Ox 99% on R/A; Pain 0/10; hb 16:22 BP 147 / 101; Pulse 105; Resp 25; Pulse Ox 96% on R/A; hb 11:27 Body Mass Index 31.93 (95.25 kg, 172.72 cm) aj MDM: 14:22 Patient medically screened. kdr 14:34 Data reviewed: vital signs, nurses notes, lab test result(s), EKG, radiologic studies. kdr Counseling: I had a detailed discussion with the patient and/or guardian regarding: the historical points, exam findings, and any diagnostic results supporting the discharge/admit diagnosis, lab results, radiology results, the need for further work-up and treatment in the hospital. 09/22 11:41 Order name: Basic Metabolic Panel; Complete Time: 13:27 kdr 09/22 11:41 Order name: BNP; Complete Time: 13:27 kdr 09/22 11:41 Order name: CBC with Diff; Complete Time: 13:27 kdr 09/22 11:41 Order name: Ckmb; Complete Time: 13:27 kdr 09/22 11:41 Order name: CPK; Complete Time: 13:27 kdr 09/22 11:41 Order name: LFT's; Complete Time: 13:27 kdr 09/22 11:41 Order name: Magnesium; Complete Time: 13:27 kdr 09/22 11:41 Order name: PT-INR; Complete Time: 13:27 kdr 09/22 11:41 Order name: Ptt, Activated; Complete Time: 13:27 kdr 09/22 11:41 Order name: Troponin (emerg Dept Use Only); Complete Time: 13:27 kdr 09/22 11:41 Order name: DD; Complete Time: 13:27 kdr 09/22 11:48 Order name: Blood Culture Adult (2) kdr 09/22 16:45 Order name: Urine Dipstick--Ancillary (enter results) bd 09/22 16:52 Order name: Urine Dipstick-Ancillary EDMS 09/22 11:41 Order name: XRAY Chest (1 view) kdr 09/22 11:41 Order name: EKG; Complete Time: 11:42 kdr 09/22 11:41 Order name: Cardiac monitoring; Complete Time: 12:04 kdr 09/22 11:41 Order name: EKG - Nurse/Tech; Complete Time: 12:04 kdr 09/22 11:41 Order name: IV Saline Lock; Complete Time: 12:04 kdr 09/22 11:41 Order name: Labs collected and sent; Complete Time: 12:22 kdr 09/22 11:41 Order name: O2 Per Protocol; Complete Time: 12:04 kdr 09/22 11:41 Order name: O2 Sat Monitoring; Complete Time: 12:04 kdr 09/22 11:41 Order name: Urine Dipstick-Ancillary (obtain specimen); Complete Time: 16:48 kdr 09/22 12:14 Order name: US Extremity Venous W Compression [place]mar kdr 09/22 12:40 Order name: CT Chest For PE Angio; Complete Time: 13:27 kdr 09/22 16:27 Order name: Diet Heart Healthy; Complete Time: 16:28 iw Administered Medications: 11:59 Drug: Xopenex (3) 1.25 mg Route: Inhalation; hb 12:12 Drug: Lopressor 5 mg Route: IVP; Site: right wrist; hb 12:20 Drug: Lopressor 5 mg Route: IVP; Site: left antecubital; hb 12:27 Drug: Digoxin 0.5 mg Route: IVP; Site: right antecubital; hb 13:15 Follow up: Response: No adverse reaction hb 12:32 Drug: Lopressor 5 mg Route: IVP; Site: right antecubital; hb 16:46 Follow up: Response: No adverse reaction hb Disposition: 09/22/17 14:22 Hospitalization ordered by Faiza Crhistianson for Inpatient Admission. Preliminary diagnosis are Atrial fibrillation and flutter, Hypertensive heart disease, Unspecified combined systolic (congestive) and diastolic (congestive) heart failure. - Bed requested for Telemetry/MedSurg (Inpatient). - Status is Inpatient Admission. hb - Condition is Fair. - Problem is an acute exacerbation. - Symptoms have improved. UTI on Admission? No Signatures: Dispatcher [employer] EDMS Kalyani Bunch Amanda, RN RN aj Brad Lowery MD MD kdr Alka Paredes RN RN hb Corrections: (The following items were deleted from the chart) 16:49 14:22 Hospitalization Ordered by Faiza Christianson MD for Inpatient Admission. Preliminary bd diagnosis is Atrial fibrillation and flutter; Hypertensive heart disease; Unspecified combined systolic (congestive) and diastolic (congestive) heart failure. Bed requested for Telemetry/MedSurg (Inpatient). Status is Inpatient Admission. Condition is Fair. Problem is an acute exacerbation. Symptoms have improved. UTI on Admission? No. kdr 17:13 16:49 09/22/2017 14:22 Hospitalization Ordered by Faiza Christianson MD for Inpatient hb Admission. Preliminary diagnosis is Atrial fibrillation and flutter; Hypertensive heart disease; Unspecified combined systolic (congestive) and diastolic (congestive) heart failure. Bed requested for Telemetry/MedSurg (Inpatient). Status is Inpatient Admission. Condition is Fair. Problem is an acute exacerbation. Symptoms have improved. UTI on Admission? No. bd
--- NOTE | 2017-09-22 14:22 | ER ---
Nurse's Notes [facility] Name: Jayson Burns Age: 52 yrs Sex: Male : 1965 Arrival Date: 09/22/2017 Time: 11:20 Bed 7 Private MD: out of town, doctor Diagnosis: Atrial fibrillation and flutter;Hypertensive heart disease;Unspecified combined systolic (congestive) and diastolic (congestive) heart failure Presentation: 09/22 11:24 Presenting complaint: Patient states: SOB with productive cough and bilateral lower leg aj swelling since yesterday. Patient reports night sweats. Transition of care: patient was not received from another setting of care. Onset of symptoms was September 21, 2017. Risk Assessment: Do you want to hurt yourself or someone else? Patient reports no desire to harm self or others. Care prior to arrival: None. 11:24 Method Of Arrival: Wheelchair aj 11:24 Acuity: MARILUZ 3 aj Triage Assessment: 11:27 General: Appears in no apparent distress. comfortable, Behavior is calm, cooperative, aj appropriate for age. Pain: Denies pain. Neuro: Level of Consciousness is awake, alert, obeys commands, Oriented to person, place, time, situation. Cardiovascular: Edema is 2+ to left ankle and right ankle. Respiratory: Reports shortness of breath at rest cough that is productive, Onset: The symptoms/episode began/occurred yesterday, the patient has mild shortness of breath. Derm: Skin is intact, is healthy with good turgor, Skin is pink, warm \T\ dry. normal. Historical: - Allergies: 11:27 Codeine; aj - Home Meds: 11:27 carvedilol 25 mg Oral tab 1 tab 2 times per day [Active]; Eliquis 5 mg Oral tab 1 tab 2 aj times per day [Active]; Lasix 80 mg Oral tab 2 times per day [Active]; Spironolactone Oral [Active]; - PMHx: 11:27 Atrial Fib; CHF; aj - PSHx: 11:27 Defibrillator; aj - Immunization history:: Adult Immunizations up to date. - Social history:: Smoking status: Patient uses tobacco products, smokes one-half pack cigarettes per day. - Ebola Screening: : Patient negative for fever greater than or equal to 101.5 degrees Fahrenheit, and additional compatible Ebola Virus Disease symptoms Patient denies exposure to infectious person Patient denies travel to an Ebola-affected area in the 21 days before illness onset No symptoms or risks identified at this time. Screenin:12 Abuse screen: Denies threats or abuse. Denies injuries from another. Nutritional hb screening: No deficits noted. Tuberculosis screening: No symptoms or risk factors identified. Fall Risk None identified. Assessment: 11:45 General: Appears distressed, Behavior is cooperative, anxious. Pain: Pain currently is hb 3 out of 10 on a pain scale. Neuro: Level of Consciousness is awake, alert, obeys commands, Oriented to person, place, time, situation. Cardiovascular: Heart tones S1 S2 present Capillary refill < 3 seconds Patient's skin is warm and dry. Rhythm is atrial fibrillation with rapid ventricular response. Respiratory: Airway is patent Trachea midline Respiratory effort is Respiratory pattern is tachypnea Breath sounds with rhonchi bilaterally. GI: No signs and/or symptoms were reported involving the gastrointestinal system. : No signs and/or symptoms were reported regarding the genitourinary system. EENT: No signs and/or symptoms were reported regarding the EENT system. Derm: Skin is intact, is healthy with good turgor, Skin is pink, warm \T\ dry. Musculoskeletal: No signs and/or symptoms reported regarding the musculoskeletal system. 12:11 Reassessment: HR 155-175, irregular. Pt denies CP. Dr. Lowery notified, Lopressor hb administered as ordered. 13:00 Reassessment: Patient appears in no apparent distress at this time. Patient and/or hb family updated on plan of care and expected duration. Pain level reassessed. Patient is alert, oriented x 3, equal unlabored respirations, skin warm/dry/pink. Hr 115-140, Dr. Lowery aware. 14:00 Reassessment: Patient appears in no apparent distress at this time. Patient is alert, hb oriented x 3, equal unlabored respirations, skin warm/dry/pink. HR 105-128, AFIB. Dr. Lowery aware. Admission ordered, awaiting room assignment at this time. 15:00 Reassessment: Patient appears in no apparent distress at this time. No changes from hb previously documented assessment. Patient and/or family updated on plan of care and expected duration. Pain level reassessed. Admission ordered, awaiting floor orders and room assignment at this time. 16:00 Reassessment: Patient appears in no apparent distress at this time. No changes from hb previously documented assessment. Patient and/or family updated on plan of care and expected duration. Pain level reassessed. Patient is alert, oriented x 3, equal unlabored respirations, skin warm/dry/pink. Vital Signs: 11:27 BP 214 / 181; Pulse 95; Resp 24; Temp 98.6; Pulse Ox 98% on R/A; Weight 95.25 kg; aj Height 5 ft. 8 in. (172.72 cm); 11:41 BP 135 / 94; Pulse 92; Resp 24; Pulse Ox 97% on R/A; hb 12:05 BP 134 / 81; Pulse 175; Resp 24; Pulse Ox 98% on 10% Nebulizer Mask; hb 12:12 BP 125 / 88; Pulse 145; hb 12:35 BP 129 / 95; Pulse 127; Resp 24; Pulse Ox 96% on R/A; dh3 13:31 BP 135 / 84; Pulse 126; Resp 24; Pulse Ox 99% on R/A; hb 14:30 BP 142 / 100; Pulse 110; Resp 15; Pulse Ox 100% on R/A; hb 15:30 BP 155 / 102; Pulse 116; Resp 25; Pulse Ox 99% on R/A; Pain 0/10; hb 16:22 BP 147 / 101; Pulse 105; Resp 25; Pulse Ox 96% on R/A; hb 11:27 Body Mass Index 31.93 (95.25 kg, 172.72 cm) ED Course: 11:20 Patient arrived in ED. mr 11:20 out of [facility], doctor is Private Physician. mr 11:24 Brad Lowery MD is Attending Physician. kdr 11:26 Triage completed. aj 11:27 Arm band placed on left wrist. Patient placed in an exam room. aj 11:41 Alka Paredes, STEVAN is Primary Nurse. hb 11:49 Missed attempt(s): 20 gauge in right antecubital area. Bleeding controlled, band aid ks6 applied, catheter tip intact. 11:58 Initial lab(s) drawn, by co, sent to lab. First set of blood cultures drawn by co. dh3 Inserted saline lock: 20 gauge in right hand, using aseptic technique. Blood collected. 12:17 Second set of blood cultures drawn by me. Inserted saline lock: 18 gauge in right dh3 antecubital area, using aseptic technique. Blood collected. 12:32 X-ray completed. Portable x-ray completed in exam room. Patient tolerated procedure jb2 well. 13:04 CT Chest For PE Angio In Process Unspecified. EDMS 13:20 US Extremity Venous W Compression [place] In Process Unspecified. EDMS 13:24 XRAY Chest (1 view) In Process Unspecified. EDMS 14:21 Faiza Christianson MD is Hospitalizing Provider. kdr Administered Medications: 11:59 Drug: Xopenex (3) 1.25 mg Route: Inhalation; hb 12:12 Drug: Lopressor 5 mg Route: IVP; Site: right wrist; hb 12:20 Drug: Lopressor 5 mg Route: IVP; Site: left antecubital; hb 12:27 Drug: Digoxin 0.5 mg Route: IVP; Site: right antecubital; hb 13:15 Follow up: Response: No adverse reaction hb 12:32 Drug: Lopressor 5 mg Route: IVP; Site: right antecubital; hb 16:46 Follow up: Response: No adverse reaction hb Outcome: 14:22 Decision to Hospitalize by Provider. kdr 17:13 Patient left the ED. hb Signatures: Dispatcher [employer] EDTheodora Ibrahim RN RN aj Rittger, Kevin, MD MD kdr Rivera, Maria YinmilanaChuck jb2 Alka Paredes RN RN Katerina Langford 3 Steven Lopez ks6
--- NOTE | 2017-09-22 16:36 | P.HP ---
Certification for Inpatient Patient admitted to: Observation With expected LOS: <2 Midnights Patient will require the following post-hospital care: None Practitioner: I am a practitioner with admitting privileges, knowledge of patient current condition, hospital course, and medical plan of care. Services: Services provided to patient in accordance with Admission requirements found in Title 42 Section 412.3 of the Code of Federal Regulations Patient History Date of Service: 09/22/17 Primary Care Provider: LINDA Salas Reason for admission: Dyspnea, A. Fib with RVR History of Present Illness: Pt states he was here a few weeks ago with similar s/s. Two days ago pt was awoken from sleep with severe shortness of breath. Pt states he did not have a lot of palpitations that were bothersome because he is so used to having them. States he was diaphoretic and had a blood tinged cough on forced cough. States symptoms always worse with lying down. Pt states his medications were all cut in half at his last visit. Allergies codeine Adverse Reaction (Intermediate, Verified 08/20/17 16:14) Hives/Rash Home medications list reviewed: Yes (Dr. Jaffe at bedside and revising medications) Home Medications: Apixaban [Eliquis *] 5 mg PO BID 08/20/17 Aspirin [Aspirin EC 81 MG] 1 tab PO DAILY 08/20/17 Digoxin [Lanoxin*] 0.125 mg PO DAILY 08/20/17 Spironolactone [Aldactone*] 25 mg PO DAILY 08/20/17 Carvedilol [Coreg*] 12.5 mg PO BID 6AM 6PM #60 tab 08/21/17 Furosemide [Lasix] 40 mg PO BID #60 tablet 08/21/17 - Past Medical/Surgical History Has patient received pneumonia vaccine in the past: No Diabetic: No -: chf -: afib -: pleural effusion -: icd -: umbilical hernia - Family History Mother -: Heart disease, Cancer Father -: Cancer - Social History Alcohol use: Yes CD- Drugs: Yes Caffeine use: No Review of Systems General: Malaise Eyes: Unremarkable ENT: Unremarkable Respiratory: Cough, Shortness of Breath, SOB with Excertion, Sputum Cardiovascular: Palpitations, Orthopnea, Paroxysmal Noc. Dyspnea Gastrointestinal: Other (distension, 30 lb fluctuation in weight) Genitourinary: Unremarkable Musculoskeletal: Unremarkable Integumentary: Unremarkable Neurological: Unremarkable Lymphatics: Unremarkable Physical Examination - Physical Exam General: Alert, Oriented x3, Mild distress HEENT: Atraumatic, Normocephalic Respiratory: Diminished, Crackles/rales, Other (bilateral bases) Cardiovascular: No edema, Other (tachy), Irregular heart rate/rhythm Capillary refill: <2 Seconds Gastrointestinal: Normal bowel sounds, Distended Musculoskeletal: No clubbing, No swelling Integumentary: No rashes, No breakdown Neurological: Normal gait, Normal speech Lymphatics: No axilla or inguinal lymphadenopathy External genitalia: Deferred Rectal: Deferred - Studies Laboratory Data (last 24 hrs) 09/22/17 11:58: PT 13.6 H, INR 1.15, APTT 30.1 09/22/17 11:58: WBC 6.4, Hgb 16.6, Hct 49.6 H, Plt Count 173 09/22/17 11:58: B-Natriuretic Peptide 759 H 09/22/17 11:58: Sodium 139, Potassium 3.7, BUN 8, Creatinine 0.75, Glucose 123 H , Magnesium 1.8, Total Bilirubin 3.7 H, AST 105 H, ALT 66 H, Alkaline Phosphatase 74 Assessment and Plan - Problems (Diagnosis) (1) Pleural effusion Onset Date: Unknown Current Visit: Yes Status: Acute Plan: Pulmonary toilet, increase lasix to parameters set by Dr. Jaffe, albuterol neb treatments, smoking cessation (2) Smoking 1/2 pack a day or less Current Visit: Yes Status: Acute Plan: Nicoderm prn (3) Hypertension Current Visit: Yes Status: Acute Plan: Dr. Jaffe states he will place orders. Meds recently halved in dose. Will follow Dr. Jaffe' plan (4) Afib Current Visit: Yes Status: Chronic Plan: Maintain digoxin and coreg doses, or change to Dr. Jaffe' rate control of choice Qualifiers: Atrial fibrillation type: chronic Qualified Code(s): I48.2 - Chronic atrial fibrillation Discharge Plan: Home Plan to discharge in: 24 Hours - Advance Directives Does patient have a Living Will: No Does patient have a Durable POA for Healthcare: No Time Spent Managing Pts Care (In Minutes): 30
[2017-09-22 16:52] LABS: Urine Blood 1+ (NEG); Urine Glucose NEGATIVE (NEG); Urine Protein NEGATIVE (NEG)
[2017-09-22] MEDS ORDERED: FUROSEMIDE 40 MG/4 ML VIAL IV SCH (17:00)
[2017-09-22] MEDS ORDERED: ACETAMINOPHEN 500 MG TAB PO PRN (17:26)
[2017-09-22 18:30] VITALS: BMI 33.5
[2017-09-22] MEDS: FUROSEMIDE 40 MG/4 ML VIAL IV SCH (18:40)
--- NOTE | 2017-09-22 21:01 | CON ---
Additional Attending: Dr. Lowery. Chief Complaint: Dyspnea. History Of Present Illness: Mr. Burns is a gentleman, who has longstanding cardiomyopathy. He has a [employer] defibrillator implanted. He has been in chronic atrial fibrillation since 2006. 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 Cardiac cath was done and showed no coronary artery stenosis. Layne dewey continues to use alcohol and tobacco against his physician's recommendations. His alcohol use is l ess, but he is vague about how much he drinks, and the best I can guess is 10-15 drinks per week. Ab out 2 weeks ago, the patient was in our hospital Emergency Room and some medication changes were vashti mmended. Apparently that was August 20, and he says several medication doses were reduced. He was re latively dizzy, lightheaded. His blood pressure was low, so it was a reasonable thing to do, but chastity arently after cutting most of his medicine doses in half, he has progressively become more and more s hort of breath, orthopneic. Heart rate going up. He has had a defibrillator for at least 5 years. It has never shocked him. He gets most of his checkups with Dr. Lopez at [facility]. Medications: Outpatient medications have been spironolactone 25 mg a day, carvedilol 25 mg twice a d ay, Eliquis 5 mg twice a day. Lasix 80 mg twice a day, another dose that he reports he was taking wa s 60 mg 3 times a day. Allergies: HE REPORTS AN ALLERGY TO CODEINE. Diagnostic Studies: An echocardiogram done roughly 1 month ago showed ejection fraction 41%. His el ectrocardiogram from a month ago showed atrial fibrillation, heart rate 115 beats per minute. Impression: As the patient needs better heart rate control, I do not think carvedilol 25 b.i.d. is g oing to do it. I am not very much of a fan of using digoxin to control heart rate in a situation lik e this, and I think we should recommend he stop the carvedilol and give him metoprolol 50 to a 100 mg twice a day, keep his heart rate in the 70s to 90s. He should continue the Eliquis. Continue [place] nolactone. He needs to be on a higher dose of Lasix. Presently, his CT of the chest shows pleural e ffusions, interstitial edema. On physical exam, he has pulmonary crackles, so I think he is volume o verloaded. I think his dose of Lasix was decreased. The patient seems to be poorly compliant with d iet and medications, and no doubt there is more sodium intake than is ideal for him, so he probably r eally needs to be on large doses of diuretics just to maintain. So in summary, the patient has a non ischemic cardiomyopathy, chronic atrial fibrillation, now he is out of control because of poor compli ance with diet, poor compliance with cessation of tobacco and alcohol, and reduction in the dose of s everal of his medications. Thank you very much for your kind referral of Mr. Burns. I will follow him with you. AGATA/MICHAEL Voice ID: [id number] Report ID: [id number]
[2017-09-22] MEDS: METOPROLOL TAR 50 MG TAB PO SCH (21:07)
[2017-09-22] MEDS: APIXABAN 5 MG TABLET PO SCH (21:07)
[2017-09-22] MEDS ORDERED: TRAZODONE 50 MG TABLET PO PRN (21:20)
--- NOTE | 2017-09-22 23:01 | EKG ---
Test Date: 2017-09-22 Test Time: 11:53:45 Agronomy Manager: ДМИТРИЙ MEASUREMENT RESULTS: Intervals: Rate: 123 SD: QRSD: 88 QT: 260 QTc: 372 [place]: P: SD: QRS: -12 T: 54 INTERPRETIVE STATEMENTS: Atrial fibrillation with rapid ventricular response Nonspecific ST and T wave abnormality Abnormal ECG Compared to ECG 08/20/2017 09:36:03 No significant changes Electronically Signed On 09-22-17 23:00:56 CDT by Umair Jaffe
[2017-09-23 04:25] LABS: Absolute Lymphocytes (CBC) 2.3 K/uL (0.7-4.9); Absolute Monocytes 0.6 K/uL (0.1-1.3); Absolute Neutrophil 2.8 K/uL (1.8-8.0); Lymphocytes % 39.1 % (15.3-44.8); MCH 31.5 pg (27.0-35.0); MCV 93.8 fL (80-100); MPV 9.5 fL (7.6-11.3); Monocytes % 10.5 % (3.3-12.3); RBC Red Blood Cell Count 5.22 M/uL (4.33-5.43)
[2017-09-23 04:29] LABS: BUN Blood Urea Nitrogen 9 mg/dL (6-20); Bicarbonate 25 mEq/L (21-31); Glucose Level 90 mg/dL (65-120); Potassium 3.5 mEq/L (3.6-5.0); Sodium Level 139 mEq/L (135-145)
[2017-09-23] MEDS ORDERED: POTASSIUM 25 MEQ EFFERV TAB PO ONE (05:11)
--- NOTE | 2017-09-23 08:24 | EKG ---
Test Date: 2017-09-23 Test Time: 07:36:01 Human Resources Specialist: ДМИТРИЙ MEASUREMENT RESULTS: Intervals: Rate: 97 MT: QRSD: 92 QT: 372 QTc: 472 [place]: P: MT: QRS: 13 T: -28 INTERPRETIVE STATEMENTS: Atrial fibrillation with premature ventricular or aberrantly conducted complexes ST & T wave abnormality, consider anterior ischemia or digitalis effect Prolonged QT Abnormal ECG Compared to ECG 09/22/2017 11:53:45 Ventricular premature complex(es) now present Possible ischemia now present Prolonged QT interval now present ST (T wave) deviation still present Electronically Signed On 09-23-17 08:23:29 CDT by Juan Nuñez
[2017-09-23] MEDS ORDERED: SPIRONOLACTONE 25 MG TABLET PO SCH (09:00)
[2017-09-23] MEDS ORDERED: ASPIRIN EC 81 MG TAB PO SCH (09:00)
[2017-09-23] MEDS ORDERED: DIGOXIN 0.125 MG TABLET PO SCH (09:00)
[2017-09-23] MEDS ORDERED: LOSARTAN POTASSIUM 50 MG TABLET PO SCH (09:00)
[2017-09-23 09:29] VITALS: O2SAT 96
[2017-09-23] MEDS: METOPROLOL TAR 50 MG TAB PO SCH (10:50)
[2017-09-23] MEDS: APIXABAN 5 MG TABLET PO SCH (10:50)
[2017-09-23] MEDS: FUROSEMIDE 40 MG/4 ML VIAL IV SCH (10:50)
--- NOTE | 2017-09-23 12:47 | ECHO ---
HEIGHT: 5 ft 8 in WEIGHT: 221 lb 0 oz DATE OF STUDY: 09/23/[address]: Umair Jaffe MD 2-DIMENSIONAL: YES M.MODE: YES DOPPLER: YES COLOR FLOW: YES TDS: NO PORTABLE: NO DEFINITY: NO BUBBLE STUDY: NO DIAGNOSIS: CONGESTIVE HEART FAILURE, COMPARE TO 08/23/17 STUDY CARDIAC HISTORY: CATHERIZATION: NO SURGERY: NO PROSTHETIC VALVE: NO PACEMAKER: YES MEASUREMENTS (cm) DIASTOLIC (NORMALS) SYSTOLIC (NORMALS) IVSd 1.0 (0.6-1.2) LA Diam 5.3 (1.9-4.0) LVEF 30% LVIDd 5.6 (3.5-5.7) LVIDs 4.8 (2.0-3.5) %FS 14% LVPWd 1.1 (0.6-1.2) Ao Diam 3.0 (2.0-3.7) 2 DIMENSIONAL ASSESSMENT: RIGHT ATRIUM: NORMAL LEFT ATRIUM: DILATED RIGHT VENTRICLE: NORMAL LEFT VENTRICLE: NORMAL TRICUSPID VALVE: NORMAL MITRAL VALVE: NORMAL PULMONIC VALVE: NORMAL AORTIC VALVE: NORMAL PERICARDIAL EFFUSION: NONE AORTIC ROOT: NORMAL LEFT VENTRICULAR WALL MOTION: SEVERE GLOBAL HYPOKINESIS. DOPPLER/COLOR FLOW: MILD MITRAL AND TRICUSPID REGURGITATION NORMAL RIGHT VENTRICULAR SYSTOLIC PRESSURE. COMMENTS: SEVERE GLOBAL HYPOKINESIS. MILD MITRAL AND TRICUSPID REGURGITATION NORMAL RIGHT VENTRICULAR SYSTOLIC PRESSURE. EJECTION FRACTION 30%. TECHNOLOGIST: JAELYN ARMSTRONG
[2017-09-23 16:39] VITALS: BP 140/84; TEMP 97.8
--- NOTE | 2017-09-24 14:36 | DS ---
Date of Discharge: 09/23/2017 Consultants: Dr. Nuñez and Dr. Umair Jaffe, cardiology. Admitting Diagnoses: 1.Effusion. 2.Nicotine dependence with cigarette smoking, uncomplicated essential hypertension. 3.Atrial fibrillation with rapid ventricular response. 4.Status post AICD. Discharge Diagnoses: 1.Acute systolic congestive heart failure, exacerbation. 2.Status post AICD. 3.Pleural effusion. 4.Nicotine dependence with cigarette smoking consult. 5.Noncompliance. 6.Alcohol dependence. 7.Atrial fibrillation with rapid ventricular response, controlled ventricular rate. 8.Essential hypertension, stable. Hospital Course: The patient is a 52-year-old male comes in with shortness of breath and was found t o have atrial fibrillation with rapid ventricular response. The patient's medication recently cut in half on last visit due to his low heart rate and low blood pressure. The patient's rate was in the 160s and 170s. His chest x-ray showed pleural effusion. The patient had Doppler ultrasound done whi ch did not show any DVT. CT angio chest was done which was negative for PE. Did have some pleural e ffusion. Dr. Umair Jaffe, of Cardiology saw the patient, recommended stopping digoxin, changing the Coreg to metoprolol to keep his heart rate in the 70s to 90s. He was continued on his Eliquis. The patient did well. His heart rate was controlled. His cardiac enzymes were negative. White count w as normal. D-dimer was high. However, PE and DVT was ruled out. Blood cultures were negative. Ech ocardiogram was repeated which showed an ejection fraction of 30% with severe global hypokinesis. Ec hocardiogram for 1 month ago shows EF of 41% with mild global hypokinesis. The patient is noncomplia nt. His poor diet and alcohol and tobacco use are likely the culprit in his diminished ejection frac tion. He continues to be noncompliant. He is also not following his sodium and limited fluid intake diet. The patient otherwise is doing well. He is not on any supplemental oxygen. His shortness of breath resolved. The patient left the hospital and went to smoke multiple times during the day. Th e patient was then cleared for discharge from Cardiology standpoint. Condition: Stable. Activity: As tolerated. Medications: As per medication reconciliation list. Diet: Low-sodium, fluid-restricted diet. No more than 1500 mL per day. Followup: Follow up with primary care physician in 2-3 days. Follow up with head of commission department Dr. Jaffe in 2 weeks. Return to ER for worsening condition. Discharge Physical Examination: GENERAL: Awake, alert, oriented, in no acute distress. CV: S1, S2. No murmurs. RESPIRATORY: Moving air well. Diminished breath sounds at base. GI: Abdomen is soft, nontender, nondistended. Positive bowel sounds. EXTREMITIES: No clubbing, cyanosis, edema. NEUROLOGIC: Nonfocal. Total time spent discharging the patient was 35 minutes. /MICHAEL Voice ID: [id number] Report ID: [id number]
== END 2017-09-23 16:40 | disposition home or self-care (01) | DRG 308 ==
LOC: ER 11:18 → ERHOLD 14:19 → 4TH 17:00
PROVIDERS: ADMIT Family Medicine; ATTEND Family Medicine
DX: I48.2 Chronic atrial fibrillation (principal); I50.23 Acute on chronic systolic (congestive) heart failure; I11.0 Hypertensive heart disease with heart failure; F17.210 Nicotine dependence, cigarettes, uncomplicated; Z95.810 Presence of automatic (implantable) cardiac defibrillator; Z91.14 Patient's other noncompliance with medication regimen; Z91.11 Patient's noncompliance with dietary regimen; F10.20 Alcohol dependence, uncomplicated; I42.9 Cardiomyopathy, unspecified
CPT/HCPCS: 36415; 71045; 71275; 80048; 80076; 81003; 82550; 82553; 83615; 83735; 83880; 84484; 85025; 85379; 85610; 85730; 87040; 93005; 93306; 93970; 99285; J1160; Q9967

== ENCOUNTER 2017-11-18 01:32 | Observation (INO) | payer SELFPAY ==
[2017-11-18 02:22] LABS: Absolute Lymphocytes (CBC) 1.7 K/uL (0.7-4.9); Absolute Monocytes 0.6 K/uL (0.1-1.3); Absolute Neutrophil 3.7 K/uL (1.8-8.0); Basophils % 1.5 % (0-1.3); Eosinophils % 1.4 % (0-4.4); Hematocrit 44.4 % (39.6-49.0); Lymphocytes % 27.9 % (15.3-44.8); MCH 32.3 pg (27.0-35.0); MCV 95.8 fL (80-100); MPV 9.9 fL (7.6-11.3); Monocytes % 9.8 % (3.3-12.3); RBC Red Blood Cell Count 4.63 M/uL (4.33-5.43)
[2017-11-18 02:30] LABS: Protime INR 1.49
[2017-11-18 02:44] LABS: Albumin 2.8 g/dL (3.4-5.0); Bilirubin Direct 1.5 mg/dL (0-0.2); Bilirubin Total 2.5 mg/dL (0.2-1.0); Magnesium 1.8 mg/dL (1.8-2.4); Potassium 3.8 mmol/L (3.5-5.1); Protein, Total 6.5 g/dL (6.4-8.2)
--- NOTE | 2017-11-18 03:00 | ER ---
Nurse's Notes [facility] Name: Jayson Burns Age: 52 yrs Sex: Male : 1965 Arrival Date: 11/18/2017 Time: 01:34 Bed 18 Private MD: Diagnosis: Atrial fibrillation and flutter;Heart failure Presentation: 11/18 01:36 Presenting complaint: EMS states: Pt complaining of diarrhea, dehydration, fever and ea pressure on lower abdomen that keeps him from taking a deep breath x 3 days. Pt reports he has been unable to urinate today. Transition of care: patient was not received from another setting of care. Onset of symptoms was November 18, 2017. Risk Assessment: Do you want to hurt yourself or someone else? Patient reports no desire to harm self or others. Initial Sepsis Screen: Does the patient meet any 2 criteria? No. Patient's initial sepsis screen is negative. Does the patient have a suspected source of infection? No. Patient's initial sepsis screen is negative. Care prior to arrival: O2 per n/c at 3 Liters. 01:36 Method Of Arrival: EMS: [facility] ea 01:36 Acuity: MARILUZ 3 ea Historical: - Allergies: 01:41 Codeine; ea - Home Meds: 01:41 Eliquis 5 mg Oral tab 1 tab 2 times per day [Active]; Lasix 80 mg Oral tab 2 times per ea day [Active]; - PMHx: 01:41 CHF; Atrial Fib; Hypertension; ea - PSHx: 01:41 Defibrillator; ea - Immunization history:: Adult Immunizations up to date. - Social history:: Smoking status: Patient uses tobacco products, smokes one-half pack cigarettes per day. - Ebola Screening: : No symptoms or risks identified at this time. Screenin:43 Abuse screen: Denies threats or abuse. Nutritional screening: No deficits noted. ea Tuberculosis screening: No symptoms or risk factors identified. Fall Risk None identified. Assessment: 01:45 General: Appears uncomfortable, Behavior is calm, cooperative, appropriate for age. ea Pain: Denies pain. Neuro: Level of Consciousness is awake, alert, obeys commands, Oriented to person, place, time, situation. Cardiovascular: Heart tones S1 S2 present Patient's skin is warm and dry. Respiratory: Airway is patent Respiratory effort is even, unlabored, Respiratory pattern is regular, symmetrical, Breath sounds are diminished bilaterally. Parent/caregiver reports the patient having cough that is non-productive, persistent. GI: Abdomen is round Bowel sounds present X 4 quads. : Parent/caregiver report the patient having inability to void since today. Derm: Skin is pink, warm \T\ dry. Musculoskeletal: Circulation, motion, and sensation intact. 02:17 Reassessment: Patient and/or family updated on plan of care and expected duration. Pain ea level reassessed. Patient is alert, oriented x 3, equal unlabored respirations, skin warm/dry/pink. 03:19 Reassessment: No changes from previously documented assessment. Patient and/or family ea updated on plan of care and expected duration. Pain level reassessed. 04:17 Reassessment: No changes from previously documented assessment. Patient and/or family lc1 updated on plan of care and expected duration. Pain level reassessed. . Vital Signs: 01:36 BP 117 / 85; Pulse 88; Resp 20; Temp 97.7; Pulse Ox 97% on R/A; Weight 99.79 kg; Height ea 5 ft. 8 in. (172.72 cm); Pain 0/10; 02:17 BP 108 / 83; Pulse 110; Resp 20; Pulse Ox 94% on R/A; Pain 0/10; ea 02:54 BP 111 / 95; Pulse 81; Resp 20; Pulse Ox 96% on 2 lpm NC; ea 03:37 BP 113 / 95; Pulse 74; Resp 20; Pulse Ox 96% on 2 lpm NC; ea 04:30 BP 109 / 82; Pulse 115; Resp 18; Pulse Ox 96% on R/A; lc1 05:32 BP 97 / 74; Pulse 110; Resp 20; Pulse Ox 95% on R/A; lc1 01:36 Body Mass Index 33.45 (99.79 kg, 172.72 cm) ea 02:17 pt placed on 2 L of O2 per n/c ea ED Course: 01:34 Patient arrived in ED. ds1 01:36 Bryce Voss MD is Attending Physician. gs 01:36 Bria Arias, STEVAN is Primary Nurse. ea 01:36 Patient has correct armband on for positive identification. Bed in low position. Call ea light in reach. Side rails up X2. 01:36 Arm band placed on right wrist. Patient placed in an exam room, on a stretcher, on ea pulse oximetry. 01:40 Triage completed. ea 02:00 Missed attempt(s): 22 gauge in right hand. Bleeding controlled, band aid applied, ea catheter tip intact. 02:10 Missed attempt(s): 22 gauge forearm. Bleeding controlled, band aid applied, catheter ea tip intact. 02:18 Inserted saline lock: 20 gauge in right antecubital area, using aseptic technique. ea Blood collected. 02:59 Chris Madera MD is Hospitalizing Provider. gs 03:18 No provider procedures requiring assistance completed. Patient admitted, IV remains in ea place. 04:19 ETOH Level Sent. lc1 Administered Medications: 03:15 Drug: Lopressor 25 mg Route: PO; ea 04:19 Follow up: Response: No adverse reaction lc1 03:16 Drug: Aspirin Chewable Tablet 324 mg Route: PO; ea 04:19 Follow up: Response: No adverse reaction lc1 04:49 Drug: Lopressor 25 mg Route: PO; lc1 05:22 Follow up: Response: No adverse reaction lc1 Outcome: 02:59 Decision to Hospitalize by Provider. gs 03:18 Instructed on the need for admit. ea 04:19 Condition: stable lc1 05:40 Admitted to Tele accompanied by nurse, via wheelchair, room 419, with chart. lc1 05:59 Patient left the ED. lc1 Signatures: Shannan Saravia ds1 Daisy Norris lc1 Bria Arias RN RN ea Starr, Gregory, MD MD
--- NOTE | 2017-11-18 03:00 | EDPHYS ---
Physician Documentation [facility] Name: Jayson Burns Age: 52 yrs Sex: Male : 1965 Arrival Date: 11/18/2017 Time: 01:34 Bed 18 Private MD: ED Physician Bryce Voss HPI: 11/18 02:47 This 52 yrs old Male presents to ER via EMS with unknown complaint. gs 02:47 The patient has shortness of breath at rest, that woke him/her from sleep. Onset: The gs symptoms/episode began/occurred 2 day(s) ago. Duration: The symptoms are intermittent. The patient's shortness of breath is aggravated by supine position. Associated signs and symptoms: Pertinent positives: chest pain, Pertinent negatives: dizziness. Severity of symptoms: At their worst the symptoms were moderate in the emergency department the symptoms are unchanged. The patient has experienced similar episodes in the past, multiple times. The patient has not recently seen a physician. Historical: - Allergies: 01:41 Codeine; ea - Home Meds: 01:41 Eliquis 5 mg Oral tab 1 tab 2 times per day [Active]; Lasix 80 mg Oral tab 2 times per ea day [Active]; - PMHx: 01:41 CHF; Atrial Fib; Hypertension; ea - PSHx: 01:41 Defibrillator; ea - Immunization history:: Adult Immunizations up to date. - Social history:: Smoking status: Patient uses tobacco products, smokes one-half pack cigarettes per day. - Ebola Screening: : No symptoms or risks identified at this time. ROS: 02:47 All other systems are negative. gs Exam: 02:57 Head/Face: Normocephalic, atraumatic. Eyes: Pupils equal round and reactive to light, gs extra-ocular motions intact. Lids and lashes normal. Conjunctiva and sclera are non-icteric and not injected. Cornea within normal limits. Periorbital areas with no swelling, redness, or edema. ENT: Nares patent. No nasal discharge, no septal abnormalities noted. Tympanic membranes are normal and external auditory canals are clear. Oropharynx with no redness, swelling, or masses, exudates, or evidence of obstruction, uvula midline. Mucous membranes moist. Neck: Trachea midline, no thyromegaly or masses palpated, and no cervical lymphadenopathy. Supple, full range of motion without nuchal rigidity, or vertebral point tenderness. No Meningismus. Chest/axilla: Normal chest wall appearance and motion. Nontender with no deformity. No lesions are appreciated. Respiratory: Lungs have equal breath sounds bilaterally, clear to auscultation and percussion. No rales, rhonchi or wheezes noted. No increased work of breathing, no retractions or nasal flaring. Abdomen/GI: Soft, non-tender, with normal bowel sounds. No distension or tympany. No guarding or rebound. No evidence of tenderness throughout. Back: No spinal tenderness. No costovertebral tenderness. Full range of motion. Skin: Warm, dry with normal turgor. Normal color with no rashes, no lesions, and no evidence of cellulitis. MS/ Extremity: Pulses equal, no cyanosis. Neurovascular intact. Full, normal range of motion. Neuro: Awake and alert, GCS 15, oriented to person, place, time, and situation. Cranial nerves II-XII grossly intact. Motor strength 5/5 in all extremities. Sensory grossly intact. Cerebellar exam normal. Normal gait. 02:57 Constitutional: The patient appears alert, awake. 02:57 Cardiovascular: Rate: tachycardic, Rhythm: irregularly irregular, Pulses: no pulse deficits are appreciated, Edema: is not appreciated. 03:00 ECG was reviewed by the Attending Physician. Vital Signs: 01:36 BP 117 / 85; Pulse 88; Resp 20; Temp 97.7; Pulse Ox 97% on R/A; Weight 99.79 kg; Height ea 5 ft. 8 in. (172.72 cm); Pain 0/10; 02:17 BP 108 / 83; Pulse 110; Resp 20; Pulse Ox 94% on R/A; Pain 0/10; ea 02:54 BP 111 / 95; Pulse 81; Resp 20; Pulse Ox 96% on 2 lpm NC; ea 03:37 BP 113 / 95; Pulse 74; Resp 20; Pulse Ox 96% on 2 lpm NC; ea 04:30 BP 109 / 82; Pulse 115; Resp 18; Pulse Ox 96% on R/A; lc1 05:32 BP 97 / 74; Pulse 110; Resp 20; Pulse Ox 95% on R/A; lc1 01:36 Body Mass Index 33.45 (99.79 kg, 172.72 cm) ea 02:17 pt placed on 2 L of O2 per n/c ea MDM: 01:50 Patient medically screened. 02:57 Differential diagnosis: CHF exacerbation, Chronic Obstructive Pulmonary Disease gs Myocardial Infarction pneumonia. Data reviewed: vital signs, nurses notes. 11/18 01:51 Order name: Basic Metabolic Panel; Complete Time: 02:45 gs 11/18 01:51 Order name: CBC with Diff; Complete Time: 02:45 11/18 01:51 Order name: LFT's; Complete Time: 02:45 11/18 01:51 Order name: Magnesium; Complete Time: 02:45 11/18 01:51 Order name: NT PRO-BNP; Complete Time: 02:45 11/18 01:51 Order name: PT-INR; Complete Time: 02:45 11/18 01:51 Order name: Troponin (emerg Dept Use Only); Complete Time: 02:45 gs 11/18 01:51 Order name: XRAY Chest (1 view) 11/18 01:51 Order name: Lipase; Complete Time: 02:45 11/18 01:56 Order name: ETOH Level 11/18 01:57 Order name: Alcohol Serum/Plasma; Complete Time: 02:45 EDMS 11/18 01:51 Order name: EKG; Complete Time: 01:52 11/18 01:51 Order name: Cardiac monitoring; Complete Time: 02:16 11/18 01:51 Order name: EKG - Nurse/Tech; Complete Time: 02:16 11/18 01:51 Order name: IV Saline Lock; Complete Time: 02:15 11/18 01:51 Order name: Labs collected and sent; Complete Time: 02:15 11/18 01:51 Order name: O2 Per Protocol; Complete Time: 02:15 11/18 01:51 Order name: O2 Sat Monitoring; Complete Time: 02:16 gs EC:00 Rate is 110 beats/min. Rhythm is irregularly irregular. QRS interval is normal. QT gs interval is normal. T waves are Flattened. Clinical impression: Abnormal EKG without significant change and Atrial Fibrillation. Interpreted by me. Administered Medications: 03:15 Drug: Lopressor 25 mg Route: PO; ea 04:19 Follow up: Response: No adverse reaction lc1 03:16 Drug: Aspirin Chewable Tablet 324 mg Route: PO; jd 04:19 Follow up: Response: No adverse reaction lc1 04:49 Drug: Lopressor 25 mg Route: PO; lc1 05:22 Follow up: Response: No adverse reaction lc1 Disposition: 02:57 Critical Care:. gs Disposition: 11/18/17 02:59 Hospitalization ordered by Chris Madera for Observation. Preliminary diagnosis are Atrial fibrillation and flutter, Heart failure. - Bed requested for Telemetry/MedSurg (observation). - Status is Observation. lc1 - Condition is Stable. - Problem is an acute exacerbation. - Symptoms have improved. UTI on Admission? No Critical care time excluding procedures: 02:57 Critical care time: Bedside Care: 10 minutes, Consultation: 10 minutes, Family gs Intervention: 10 minutes. Total time: 30 minutes Signatures: Dispatcher [employer] EDHailey Rodriguez RN RN kl Calhoun, Lisa 1 Bria Arias RN RN ea Starr, Gregory, MD MD Corrections: (The following items were deleted from the chart) 03:57 02:59 Hospitalization Ordered by Chris Madera MD for Observation. Preliminary kl diagnosis is Atrial fibrillation and flutter; Heart failure. Bed requested for Telemetry/MedSurg (observation). Status is Observation. Condition is Stable. Problem is an acute exacerbation. Symptoms have improved. UTI on Admission? No. gs 05:59 03:57 11/18/2017 02:59 Hospitalization Ordered by Chris Madera MD for Observation. 1 Preliminary diagnosis is Atrial fibrillation and flutter; Heart failure. Bed requested for Telemetry/MedSurg (observation). Status is Observation. Condition is Stable. Problem is an acute exacerbation. Symptoms have improved. UTI on Admission? No. kl
[2017-11-18] MEDS ORDERED: ASPIRIN 81 MG CHEWABLE TABLET ONE (03:10)
[2017-11-18] MEDS ORDERED: METOPROLOL TAR 25 MG TAB ONE ×2 (03:10→04:46)
[2017-11-18] MEDS ORDERED: FUROSEMIDE 40 MG/4 ML VIAL IV ONE (05:19)
[2017-11-18] MEDS ORDERED: FUROSEMIDE 40 MG/4 ML VIAL ONE (05:29)
--- NOTE | 2017-11-18 05:51 | P.HP ---
Certification for Inpatient Patient admitted to: Inpatient With expected LOS: >2 Midnights Practitioner: I am a practitioner with admitting privileges, knowledge of patient current condition, hospital course, and medical plan of care. 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 He came to ED complaining of SOB and dry cough since 2 days ago. He denied fever or chills but has had sweating episodes. He was not able to sleep laying flat the last couple of night due to worsening SOB. He also has had diarrhea for a few days, no abdominal pain, nausea or vomiting. At arrival, he had A.fib with RVR, about 140 bpm. He was treated with oral metoprolol, subsequently, his HR decreased to 100's, however, he did not improved from dyspnea. Allergies codeine Adverse Reaction (Intermediate, Verified 08/20/17 16:14) Hives/Rash Home medications list reviewed: Yes Home Medications: Apixaban [Eliquis *] 5 mg PO BID 08/20/17 Aspirin [Aspirin EC 81 MG] 1 tab PO DAILY 08/20/17 Furosemide [Lasix] 20 mg PO BID 09/22/17 Losartan Potassium [Cozaar*] 100 mg PO DAILY #60 tablet 09/23/17 Metoprolol Tartrate [Lopressor*] 100 mg PO BID #60 tab 09/23/17 - Past Medical/Surgical History Diabetic: No -: chf -: A-fibb 2006 -: pleural effusion -: clot "went away""atrium in heart attached to the lead of my device" -: ICP left chest wall -: umbilical hernia - Family History Mother -: Heart disease, Cancer Father -: Cancer - Social History Smoking Status: Current every day smoker Counseled patient to stop smoking for: less than 10 minutes Smoking therapy provided: Yes Patient receptive to therapy: No Alcohol use: Yes CD- Drugs: Yes Caffeine use: Yes Place of Residence: Home Review of Systems 10-point ROS is otherwise unremarkable Physical Examination - Vital Signs Blood Pressure: 103/79 Pulse: 110 - Physical Exam General: Alert, In no apparent distress HEENT: Atraumatic, PERRLA, Mucous membr. moist/pink, EOMI, Sclerae nonicteric Neck: Supple, 2+ carotid pulse no bruit, No LAD, Without JVD or thyroid abnormality Respiratory: Normal air movement, Crackles/rales (mild bibasilar rales) Cardiovascular: Regular rate/rhythm, Normal S1 S2 Gastrointestinal: Normal bowel sounds, No tenderness Musculoskeletal: Swelling, Other (lower extremity twitching) Integumentary: No rashes Neurological: Normal speech, Normal strength at 5/5 x4 extr, Normal tone, Normal affect Lymphatics: No axilla or inguinal lymphadenopathy - Studies Laboratory Data (last 24 hrs) 11/18/17 02:14: PT 17.6 H, INR 1.49 11/18/17 02:14: WBC 6.2, Hgb 15.0, Hct 44.4, Plt Count 139 L 11/18/17 02:14: Sodium 138, Potassium 3.8, BUN 11, Creatinine 1.20, Glucose 100 , Magnesium 1.8, Total Bilirubin 2.5 H, AST 113 H, ALT 74, Alkaline Phosphatase 78, Lipase 198 Assessment and Plan - Problems (Diagnosis) (1) Atrial fibrillation with RVR Current Visit: Yes Status: Acute (2) Smoking 1/2 pack a day or less Current Visit: No Status: Acute (3) Alcohol abuse Current Visit: No Status: Chronic (4) Acute on chronic systolic (congestive) heart failure Current Visit: Yes Status: Acute (5) Diarrhea Current Visit: Yes Status: Acute Qualifiers: Diarrhea type: unspecified type Qualified Code(s): R19.7 - Diarrhea, unspecified - Plan The patient will be admitted to the hospital due to acute on chronic systolic CHF exacerbation, a.fib with RVR and diarrhea. Will order IV Lasix, tight diuresis control, will resume beta-blockers to keep controlled his heart rate. Consult Cardiology for evaluation and recommendation. The patient has a recent echocardiogram, no need to repeat it at this point. Check for C diff. - Advance Directives Does patient have a Living Will: No Does patient have a Durable POA for Healthcare: No - Code Status/Comfort Care Code Status Assessed: Yes Code Status: Full Code
[2017-11-18] MEDS ORDERED: ACETAMINOPHEN 500 MG TAB PO PRN (06:07)
[2017-11-18] MEDS ORDERED: ONDANSETRON 4 MG/2 ML VIAL IV PRN (06:07)
[2017-11-18] MEDS: PRAMIPEXOLE 0.25 MG TAB PO SCH ×2 (07:24→08:40)
[2017-11-18] MEDS: METOPROLOL TAR 50 MG TAB PO SCH ×2 (08:38→20:35)
[2017-11-18] MEDS: APIXABAN 2.5 MG TABLET PO SCH ×2 (08:39→20:35)
[2017-11-18] MEDS: FUROSEMIDE 40 MG/4 ML VIAL IV SCH ×2 (08:39→17:05)
--- NOTE | 2017-11-18 08:40 | RAD REPORT ---
EXAM DESCRIPTION: RAD - Chest Single View - 11/18/2017 5:40 am CLINICAL HISTORY: Chest pain, shortness of breath COMPARISON: September 22 TECHNIQUE: AP portable chest image was obtained 0202 hours . FINDINGS: Lungs are clear. Mild cardiomegaly without vascular engorgement. Heart size is stable from comparison. No measurable pleural effusion and no pneumothorax. No gross bony abnormality seen. No a cute aortic findings suspected. IMPRESSION: No acute cardiopulmonary process. Stable mild cardiomegaly. No failure or volume overload.
--- NOTE | 2017-11-18 10:47 | CON ---
Chief Complaint: Shortness of breath. History Of Present Illness: Mr. Burns is a gentleman, who has severe social problems. He is known to have atrial fibrillation. He takes Eliquis. He gets samples from Dr. Lopez in [place] at the [facility]. He also supposed to take losartan, metoprolol, and Lasix, but he runs out of those a nd he usually comes back to the hospital when he has been out of them for a week or so. When he came to the emergency room, he complained of diarrhea, dehydration, fever, unable to urinate. His blood pressure was 117/85, pulse 88, temperature 97.7. Physical Examination: General: He is alert, oriented, pleasant. All of his presenting complaints seem to have resolved. Lungs: Clear. Heart: Reveals an irregularly irregular rhythm going about 80 times per minute. Diagnostic Data: His chest x-ray does not show pulmonary edema. The chest x-ray shows a working def ibrillator in place. The defibrillator is followed by Dr. Lopez. There is no pulmonary edema. No sweta rnal wires. His most recent echocardiogram was September 23 this year. At that time, his ejection frac tion was 30%. Impression: The patient probably had some unknown viral illness that has already resolved. He is re ally not in heart failure. He is in a stable condition presently. I think he could be [place] the same medicines he is on. Heart rate is 90, blood pressure 112/84, temperature 97.6. AGATA/MICHAEL Voice ID: [id number] Report ID: [id number]
--- NOTE | 2017-11-18 11:09 | EKG ---
Test Date: 2017-11-18 Test Time: 02:10:30 Cryptologic Linguist: ALEKSANDRA MEASUREMENT RESULTS: Intervals: Rate: 110 CA: QRSD: 94 QT: 360 QTc: 487 [place]: P: CA: QRS: -39 T: 99 INTERPRETIVE STATEMENTS: Atrial fibrillation with rapid ventricular response Left axis deviation Nonspecific ST and T wave abnormality Abnormal ECG Compared to ECG 09/23/2017 07:36:01 Left-axis deviation now present Ventricular premature complex(es) no longer present Possible ischemia no longer present Prolonged QT interval no longer present ST (T wave) deviation still present Electronically Signed On 11-18-17 11:08:50 CDT by Umair Jaffe
[2017-11-18 15:15] LABS: Urine Appearance CLEAR; Urine Blood NEGATIVE (NEG); Urine Color DK YELLOW; Urine Glucose NEGATIVE (NEG); Urine Protein TRACE (NEG); Urine Specific Gravity 1.015 (1.005-1.030); Urine Urobilinogen >=8.0 mg/dL (0.2-1.0); Urine pH 6.5 (5.0-7.0)
[2017-11-18 15:20] LABS: Urine Bilirubin NEGATIVE (NEG)
[2017-11-18 15:32] LABS: Urine Bacteria <20 /HPF (NONE SEEN); Urine Culture Reflex Order NOT NEEDED; Urine Mucus SLIGHT /HPF (NONE SEEN); Urine RBC <5 /HPF (NONE SEEN)
[2017-11-18] MEDS ORDERED: MAGNESIUM SULFATE 1 gm IVPB 1 GM/100 ML BAG IV ONE (18:00)
[2017-11-18] MEDS ORDERED: POTASSIUM 25 MEQ EFFERV TAB PO ONE (19:00)
[2017-11-18] MEDS: NICOTINE 21 MG/PAT TD SCH (21:47)
[2017-11-19 04:58] VITALS: BMI 31.1
[2017-11-19 06:16] LABS: Albumin 2.8 g/dL (3.4-5.0); Bilirubin Total 2.1 mg/dL (0.2-1.0); Potassium 3.5 mmol/L (3.5-5.1); Protein, Total 6.3 g/dL (6.4-8.2)
[2017-11-19] MEDS ORDERED: POTASSIUM 25 MEQ EFFERV TAB PO ONE (07:00)
[2017-11-19] MEDS: PRAMIPEXOLE 0.25 MG TAB PO SCH (09:53)
[2017-11-19] MEDS: METOPROLOL TAR 50 MG TAB PO SCH (09:53)
[2017-11-19] MEDS: APIXABAN 2.5 MG TABLET PO SCH (09:53)
[2017-11-19] MEDS: NICOTINE 21 MG/PAT TD SCH (09:53)
[2017-11-19] MEDS: FUROSEMIDE 40 MG/4 ML VIAL IV SCH (09:54)
--- NOTE | 2017-11-19 10:16 | P.DS ---
Admission Date: 11/18/17 Discharge Date: 11/19/17 Primary Care Provider: None Disposition: ROUTINE DISCHARGE Discharge Condition: GOOD Reason for Admission: AFib with RVR Consultations: Cardiology-Dr. Jaffe - Problems (1) Chronic anticoagulation Current Visit: Yes Status: Chronic (2) Hyperlipidemia Current Visit: Yes Status: Chronic (3) Atrial fibrillation with RVR Onset Date: 11/19/17 Current Visit: Yes Status: Acute (4) Alcohol abuse Onset Date: 11/19/17 Current Visit: Yes Status: Chronic (5) CHF (congestive heart failure) Current Visit: No Status: Acute Qualifiers: Heart failure type: systolic Heart failure chronicity: acute on chronic Qualified Code(s): I50.23 - Acute on chronic systolic (congestive) heart failure (6) Hypertension Onset Date: 09/23/17 Current Visit: No Status: Chronic Qualifiers: Hypertension type: essential hypertension Qualified Code(s): I10 - Essential (primary) hypertension (7) Tobacco abuse Current Visit: Yes Status: Chronic (8) Noncompliance Current Visit: Yes Status: Acute (9) Nonischemic dilated cardiomyopathy Current Visit: Yes Status: Chronic (10) Shortness of breath Current Visit: Yes Status: Acute Brief History of Present Illness: 52-year-old male presented emergency room with shortness of breath. Patient with history of nonischemic dilated cardiomyopathy related to alcohol abuse, atrial fibrillation with defibrillator, and systolic CHF with ejection fraction of 30%. Patient was evaluated in the emergency room. Patient had atrial fibrillation with mild RVR. Patient reports non compliant with medication. Patient was admitted for further evaluation. Hospital Course: Patient was evaluated for his shortness of breath. This was likely related to acute on chronic systolic CHF with ejection fraction of 30%. Patient with history of nonischemic dilated cardiomyopathy related to alcohol abuse. Patient also has a history of hypertension, atrial fibrillation on chronic anti coagulation therapy with defibrillator. Patient seen by [facility] cardiology. Patient did well in the course of his stay. Patient was given medication and IV Lasix. Patient reports noncompliance with medication. Patient was evaluated by cardiology. Previous echocardiogram reviewed done September 2017, shows ejection fraction of 30%. No cardiac intervention recommended at this time. Recommendation to continue with medication with strict compliance of medication and follow up. At discharge prescriptions of all medications were provided. At discharge patient will continue with Eliquis 5 mg 1 pill twice daily, metoprolol 100 mg 1 pill twice daily, losartan 50 mg 1 pill once daily, Lipitor 40 mg 1 pill once daily and Lasix 20 mg 1 pill twice daily. He is to continue with a 1500 cc per day fluid restriction and low-salt diet. Patient is to monitor his weight daily. If his weight increases by more than 5 lb he is to contact his PCP or cardiology for recommendation. Patient may require adjustment in his Lasix if with increase edema and shortness of breath. Recommendation is for the patient follow up with cardiology in 1 week to monitor his progress. Patient will be provided information to establish care with a local PCP. Patient admits alcohol abuse. Alcohol was elevated upon admission. No withdrawal noted. At discharge patient will continue with strict alcohol cessation. Risks addressed. Patient understands this. Patient has hypertension. Blood pressure remained stable during his stay. Patient takes losartan and metoprolol at home. At discharge patient will continue with metoprolol 100 mg 1 pill twice daily and losartan 50 mg daily. Recommendation is to maintain blood pressures less 150/80. Further adjustment can be done by his PCP. Patient has hyperlipidemia. Patient will continue with Lipitor 40 mg daily. Patient admits tobacco use. Tobacco cessation addressed in detail. Risks addressed. Vital Signs/Physical Exam: Temp Pulse Resp BP Pulse Ox 97.1 F 117 H 18 127/78 98 11/19/17 08:00 11/19/17 09:54 11/19/17 08:00 11/19/17 09:54 11/19/17 08:00 General: Alert, In no apparent distress, Oriented x3, Cooperative HEENT: Atraumatic Neck: Supple Respiratory: Clear to auscultation bilaterally, Normal air movement Cardiovascular: Irregular heart rate/rhythm (Atrial fibrillation, rate controlled) Gastrointestinal: Normal bowel sounds, Soft and benign, Non-distended, No tenderness, No masses, No rebound, No guarding Musculoskeletal: No erythema, No tenderness, No warmth Integumentary: No tenderness/swelling, No erythema, No warmth, No cyanosis Neurological: Normal speech, Normal strength at 5/5 x4 extr, Normal tone, Normal affect Lymphatics: No axilla or inguinal lymphadenopathy Laboratory Data at Discharge: WBC 6.2 K/uL (4.3-10.9) 11/18/17 02:14 Hgb 15.0 g/dL (13.6-17.9) 11/18/17 02:14 Hct 44.4 % (39.6-49.0) 11/18/17 02:14 Plt Count 139 K/uL (152-406) L 11/18/17 02:14 PT 17.6 SECONDS (9.5-12.5) H 11/18/17 02:14 INR 1.49 11/18/17 02:14 Sodium 136 mmol/L (136-145) 11/19/17 05:25 Potassium 3.5 mmol/L (3.5-5.1) 11/19/17 05:25 BUN 16 mg/dL (7-18) 11/19/17 05:25 Creatinine 1.00 mg/dL (0.55-1.3) 11/19/17 05:25 Glucose 87 mg/dL (74-106) 11/19/17 05:25 Magnesium 2.0 mg/dL (1.8-2.4) 11/19/17 05:25 Total Bilirubin 2.1 mg/dL (0.2-1.0) H 11/19/17 05:25 AST 121 U/L (15-37) H 11/19/17 05:25 ALT 75 U/L (12-78) 11/19/17 05:25 Alkaline Phosphatase 91 U/L (45-117) 11/19/17 05:25 Troponin I 0.04 ng/mL (0.0-0.045) 11/18/17 22:20 Lipase 198 U/L (73-393) 11/18/17 02:14 Home Medications: Apixaban [Eliquis *] 5 mg PO BID 08/20/17 Aspirin [Aspirin EC 81 MG] 1 tab PO DAILY 08/20/17 Metoprolol Tartrate [Lopressor*] 100 mg PO BID #60 tab 09/23/17 Apixaban [Eliquis] 5 mg PO BID #60 tablet 11/19/17 Atorvastatin Calcium [Lipitor] 40 mg PO BEDTIME #30 tablet 11/19/17 Furosemide [Lasix] 20 mg PO BIDL #60 tab 11/19/17 Losartan Potassium 50 mg PO DAILY #30 tablet 11/19/17 Metoprolol Tartrate 100 mg PO BID #60 tablet 11/19/17 New Medications: Apixaban [Eliquis] 5 mg PO BID #60 tablet Atorvastatin Calcium [Lipitor] 40 mg PO BEDTIME #30 tablet Furosemide [Lasix] 20 mg PO BIDL #60 tab Losartan Potassium 50 mg PO DAILY #30 tablet Metoprolol Tartrate 100 mg PO BID #60 tablet Patient Discharge Instructions: 1. Patient will need to establish care with a local PCP to continue his care. Contact information will be provided. 2. Patient presented with shortness of breath. Likely from acute on chronic systolic CHF with ejection fraction of 30%. Patient with history of nonischemic dilated cardiomyopathy related to alcohol abuse. Patient also has a history of hypertension, atrial fibrillation on chronic anti coagulation therapy with defibrillator. Patient was evaluated by cardiology. Previous echocardiogram reviewed done September 2017, shows ejection fraction of 30%. No cardiac intervention recommended at this time. Recommendation to continue with medication with strict compliance of medication and follow up. At discharge patient we provided prescriptions for all of his medications. At discharge patient will continue with Eliquis 5 mg 1 pill twice daily, metoprolol 100 mg 1 pill twice daily, losartan 50 mg 1 pill once daily, Lipitor 40 mg 1 pill daily, and Lasix 20 mg 1 pill twice daily. He is to continue with a 1500 cc per day fluid restriction and low-salt diet. Patient is to monitor his weight daily. If his weight increases by more than 5 lb he is to contact his PCP or cardiology for recommendation. Patient may require adjustment in his Lasix if with increase edema and shortness of breath. Recommendation is for the patient follow up with cardiology in 1 week to monitor his progress. Patient will be provided information to establish care with a local PCP. 3. Patient admits alcohol abuse. Alcohol was elevated upon admission. No withdrawal noted. At discharge patient will continue with strict alcohol cessation. Risks addressed. Patient understands this. 4. Patient has hypertension. This remained stable. At discharge patient will continue with metoprolol 100 mg 1 pill twice daily and losartan 50 mg daily. Prescriptions will be provided. Recommendation is to maintain blood pressures less 150/80. Further adjustment can be done by his PCP. 5. Patient has hyperlipidemia. Patient will continue with Lipitor 40 mg daily. 6. Patient admits tobacco use. Tobacco cessation addressed in detail. Risks addressed. Diet: AHA Activity: Ad ashlee Time spent managing pt's care (in minutes): 55
[2017-11-19 12:07] VITALS: BP 119/75; TEMP 96.8
[2017-11-19 13:47] VITALS: O2SAT 97
== END 2017-11-19 12:45 | disposition home or self-care (01) ==
LOC: ER 01:32 → ERHOLD 03:18 → 4TH 03:58
PROVIDERS: ADMIT Internal Medicine; ATTEND Family Medicine
DX: I11.0 Hypertensive heart disease with heart failure (principal); I50.23 Acute on chronic systolic (congestive) heart failure; E78.5 Hyperlipidemia, unspecified; I48.91 Unspecified atrial fibrillation; Z79.01 Long term (current) use of anticoagulants; F17.210 Nicotine dependence, cigarettes, uncomplicated; F10.10 Alcohol abuse, uncomplicated; I42.6 Alcoholic cardiomyopathy; Z91.14 Patient's other noncompliance with medication regimen; Z95.810 Presence of automatic (implantable) cardiac defibrillator; Z79.82 Long term (current) use of aspirin; Z88.5 Allergy status to narcotic agent; R19.7 Diarrhea, unspecified
CPT/HCPCS: 36415; 71045; 80048; 80053; 80076; 80320; 81001; 83690; 83735; 83880; 84484; 85025; 85610; 87493; 93005; 94760; 99285; G0378; J3475

== ENCOUNTER → 2018-07-31 | Emergency (ER) | payer SELFPAY ==
[~2018-07-31] MED LIST: APIXABAN 5 MG TABLET PO ONE; DIGOXIN 0.25 MG TABLET ONE; DIGOXIN 0.25 MG/ML AMP ONE; FAMOTIDINE 20 MG/2 ML VIAL IV ONE; THIAMINE 200 MG/2 ML INJ ONE
--- OUTSIDE RECORDS SUMMARY | 2018-07-31 17:38 | XMS REPORT ---
:1965 [facility] [address] [place] [address] Care Team Providers Name Role Phone Unavailable Unavailable Unavailable Problems This patient has no known problems. Allergies, Adverse Reactions, Alerts This patient has no known allergies or adverse reactions. Medications This patient has no known medications.
--- NOTE | 2018-07-31 18:14 | RAD REPORT ---
EXAM DESCRIPTION: [facility] Single View07/31/2018 6:02 pm CLINICAL HISTORY: Chest pain COMPARISON: November 2017 FINDINGS: The lungs appear clear of acute infiltrate. The heart is mildly enlarged. Pacemaker leads are in place. IMPRESSION: No acute abnormalities displayed
[2018-07-31 18:16] LABS: Absolute Lymphocytes (CBC) 3.1 K/uL (0.7-4.9); Absolute Monocytes 0.5 K/uL (0.1-1.3); Absolute Neutrophil 3.1 K/uL (1.8-8.0); Basophils % 1.5 % (0-1.3); Hematocrit 48.1 % (39.6-49.0); Lymphocytes % 45.8 % (15.3-44.8); Monocytes % 7.2 % (3.3-12.3); RBC Red Blood Cell Count 5.28 M/uL (4.33-5.43)
[2018-07-31 18:21] LABS: Protime INR 1.17
[2018-07-31 18:41] LABS: Barbiturates NEGATIVE (NEGATIVE); Benzodiazepines NEGATIVE (NEGATIVE); Cocaine NEGATIVE (NEGATIVE); METHAMPHETAM NEGATIVE (NEGATIVE); Methadone NEGATIVE (NEGATIVE); Opiates NEGATIVE (NEGATIVE); Phencyclidine NEGATIVE (NEGATIVE); THC Cannibis POSITIVE (NEGATIVE)
[2018-07-31 18:50] LABS: ALT/SGPT 98 U/L (12-78); AST/SGOT 161 U/L (15-37); Albumin 3.4 g/dL (3.4-5.0); Alkaline Phosphatase 103 U/L (45-117); BUN Blood Urea Nitrogen 9 mg/dL (7-18); Bicarbonate 25 mmol/L (21-32); Bilirubin Direct 0.5 mg/dL (0-0.2); Creatine Phosphokinase 800 U/L (39-308); Glucose Level 89 mg/dL (74-106); Lipase 159 U/L (73-393); Magnesium 2.1 mg/dL (1.8-2.4); NT PRO-BNP 392 pg/mL (<125); Potassium 3.5 mmol/L (3.5-5.1); Protein, Total 7.4 g/dL (6.4-8.2); Sodium Level 139 mmol/L (136-145); Troponin (Emerg Dept Use Only) < 0.02 ng/mL (0.0-0.045)
[2018-07-31 18:53] LABS: CKMB Creatine Kinase MB 19.1 ng/mL (0.3-3.6)
--- NOTE | 2018-07-31 19:07 | EDPHYS ---
Physician Documentation [facility] Name: Jayson Burns Age: 53 yrs Sex: Male : 1965 Arrival Date: 07/31/2018 Time: 17:43 Bed 15 Private MD: ED Physician Pascual Roach HPI: 07/31 17:55 This 53 yrs old Male presents to ER via EMS with complaints of Chest Pain. [facility] 17:55 The patient or guardian reports chest pain that is located primarily in the anterior saad chest wall, bilaterally. Onset: 3 day(s) ago. The pain does not radiate. Associated signs and symptoms: The patient has no apparent associated signs or symptoms. The chest pain is described as dull. Modifying factors: The symptoms are alleviated by nothing. the symptoms are aggravated by nothing. Severity of pain: At its worst the pain was mild in the emergency department the pain is unchanged. The patient has experienced similar episodes in the past, multiple times. Historical: - Allergies: 17:30 Codeine; rb1 - Home Meds: 17:30 Lasix 80 mg Oral tab 2 times per day [Active]; Eliquis 5 mg Oral tab 1 tab 2 times per rb1 day [Active]; Metoprolol Tartrate Oral [Active]; aspirin 81 mg Oral chew 1 tab once daily [Active]; lisinopril Oral [Active]; digoxin oral [Active]; - PMHx: 17:30 Atrial Fib; CHF; Hypertension; rb1 - PSHx: 17:30 hernia; rb1 - Immunization history:: Adult Immunizations up to date. - Social history:: Smoking status: Patient uses tobacco products, smokes one-half pack cigarettes per day. - Ebola Screening: : Patient negative for fever greater than or equal to 101.5 degrees Fahrenheit, and additional compatible Ebola Virus Disease symptoms. - Family history:: not pertinent. ROS: 17:55 Constitutional: Negative for fever, chills, and weight loss, Eyes: Negative for injury, saad pain, redness, and discharge, ENT: Negative for injury, pain, and discharge, Neck: Negative for injury, pain, and swelling, Respiratory: Negative for shortness of breath, cough, wheezing, and pleuritic chest pain, Abdomen/GI: Negative for abdominal pain, nausea, vomiting, diarrhea, and constipation, Back: Negative for injury and pain, : Negative for injury, bleeding, discharge, and swelling, MS/Extremity: Negative for injury and deformity, Skin: Negative for injury, rash, and discoloration, Neuro: Negative for headache, weakness, numbness, tingling, and seizure, Psych: Negative for depression, anxiety, suicide ideation, homicidal ideation, and hallucinations, Allergy/Immunology: Negative for hives, rash, and allergies, Endocrine: Negative for neck swelling, polydipsia, polyuria, polyphagia, and marked weight changes, Hematologic/Lymphatic: Negative for swollen nodes, abnormal bleeding, and unusual bruising. 17:55 Cardiovascular: Positive for chest pain, palpitations. Exam: 17:55 Constitutional: This is a well developed, well nourished patient who is awake, alert, saad and in no acute distress. Head/Face: Normocephalic, atraumatic. Eyes: Pupils equal round and reactive to light, extra-ocular motions intact. Lids and lashes normal. Conjunctiva and sclera are non-icteric and not injected. Cornea within normal limits. Periorbital areas with no swelling, redness, or edema. ENT: Nares patent. No nasal discharge, no septal abnormalities noted. Tympanic membranes are normal and external auditory canals are clear. Oropharynx with no redness, swelling, or masses, exudates, or evidence of obstruction, uvula midline. Mucous membranes moist. Neck: Trachea midline, no thyromegaly or masses palpated, and no cervical lymphadenopathy. Supple, full range of motion without nuchal rigidity, or vertebral point tenderness. No Meningismus. Chest/axilla: Normal chest wall appearance and motion. Nontender with no deformity. No lesions are appreciated. Respiratory: Lungs have equal breath sounds bilaterally, clear to auscultation and percussion. No rales, rhonchi or wheezes noted. No increased work of breathing, no retractions or nasal flaring. Abdomen/GI: Soft, non-tender, with normal bowel sounds. No distension or tympany. No guarding or rebound. No evidence of tenderness throughout. Back: No spinal tenderness. No costovertebral tenderness. Full range of motion. Male : Normal genitalia with no discharge or lesions. Skin: Warm, dry with normal turgor. Normal color with no rashes, no lesions, and no evidence of cellulitis. MS/ Extremity: Pulses equal, no cyanosis. Neurovascular intact. Full, normal range of motion. Neuro: Awake and alert, GCS 15, oriented to person, place, time, and situation. Cranial nerves II-XII grossly intact. Motor strength 5/5 in all extremities. Sensory grossly intact. Cerebellar exam normal. Normal gait. Psych: Awake, alert, with orientation to person, place and time. Behavior, mood, and affect are within normal limits. 17:55 Cardiovascular: Rate: normal, Rhythm: irregularly irregular, Pulses: Pulses are 4+ in bilateral radial, brachial, femoral, popliteal, posterior tibial and and dorsalis pedis arteries.. Heart sounds: normal, Edema: is not appreciated, JVD: is not appreciated. Vital Signs: 17:30 BP 108 / 61; Pulse 81; Resp 19; Temp 97.8(O); Pulse Ox 97% on R/A; Weight 97.52 kg (R); rb1 Height 5 ft. 8 in. (172.72 cm) (R); Pain 6/10; 18:30 BP 111 / 63; Pulse 76; Resp 17; Pulse Ox 99% on R/A; rb1 17:30 Body Mass Index 32.69 (97.52 kg, 172.72 cm) rb1 MDM: 17:44 Patient medically screened. [facility] 17:59 Data reviewed: vital signs, nurses notes, lab test result(s), EKG, radiologic studies, [facility] CT scan, plain films. 07/31 17:55 Order name: Basic Metabolic Panel; Complete Time: 19:03 [facility] 07/31 17:55 Order name: CBC with Diff; Complete Time: 19:03 [facility] 07/31 17:55 Order name: LFT's; Complete Time: 19:03 07/31 17:55 Order name: Magnesium; Complete Time: 19:03 [facility] 07/31 17:55 Order name: NT PRO-BNP; Complete Time: 19:03 [facility] 07/31 17:55 Order name: PT-INR; Complete Time: 19:03 [facility] 07/31 17:55 Order name: Troponin (emerg Dept Use Only); Complete Time: 19:03 saad 07/31 17:55 Order name: Digoxin; Complete Time: 19:03 [facility] 07/31 17:55 Order name: ETOH Level; Complete Time: 19:03 [facility] 07/31 17:55 Order name: UDS; Complete Time: 19:03 07/31 17:55 Order name: Lipase; Complete Time: 19:03 07/31 17:55 Order name: CK; Complete Time: 19:03 07/31 17:55 Order name: Ckmb; Complete Time: 19:03 [facility] 07/31 18:01 Order name: TSH; Complete Time: 19:03 07/31 17:55 Order name: XRAY Chest (1 view); Complete Time: 19:03 07/31 17:55 Order name: EKG; Complete Time: 17:56 07/31 17:55 Order name: Cardiac monitoring; Complete Time: 18:43 07/31 17:55 Order name: EKG - Nurse/Tech; Complete Time: 17:57 07/31 17:55 Order name: IV Saline Lock; Complete Time: 18:12 07/31 17:55 Order name: Labs collected and sent; Complete Time: 18:12 07/31 17:55 Order name: O2 Per Protocol; Complete Time: 18:12 07/31 17:55 Order name: O2 Sat Monitoring; Complete Time: 18:12 07/31 17:55 Order name: Urine Dipstick-Ancillary (obtain specimen); Complete Time: 18:34 07/31 19:10 Order name: Urine Dipstick--Ancillary (enter results) ms Administered Medications: 18:23 Drug: Thiamine 100 mg Route: IV; Rate: bolus; Site: right hand; hb 18:23 Drug: Pepcid 20 mg Route: IVP; Site: right hand; hb 18:48 Follow up: Response: No adverse reaction rb1 18:42 Drug: Eliquis 5 mg Route: PO; rb1 19:34 Not Given (Patient Eloped): Digoxin 0.25 mg IVP once jb4 19:34 Not Given (Patient Eloped): Digoxin Tablet 0.25 mg PO once jb4 Disposition: 07/31/18 19:06 Hospitalization ordered by Chris Madera for Observation. Preliminary diagnosis are Atrial fibrillation and flutter, Chest pain, unspecified, Alcohol abuse with intoxication, Tobacco use. - Bed requested for Telemetry/MedSurg (observation). - Status is Observation. bb - Condition is Stable. - Problem is new. - Symptoms have improved. UTI on Admission? No Signatures: Dispatcher [employer] EDMS Pascual Roach MD MD cha Ballard, Brenda, RN RN bb Chey Gaxiola RN RN [facility] Alka Paredes RN RN hb Bryson, James RN jb4 Corrections: (The following items were deleted from the chart) 20:24 19:06 Hospitalization Ordered by Chris Madera MD for Observation. Preliminary bb diagnosis is Atrial fibrillation and flutter; Chest pain, unspecified; Alcohol abuse with intoxication; Tobacco use. Bed requested for Telemetry/MedSurg (observation). Status is Observation. Condition is Stable. Problem is new. Symptoms have improved. UTI on Admission? No. saad
--- NOTE | 2018-07-31 19:07 | ER ---
Nurse's Notes [facility] Name: Jayson Burns Age: 53 yrs Sex: Male : 1965 Arrival Date: 07/31/2018 Time: 17:43 Bed 15 Private MD: Diagnosis: Atrial fibrillation and flutter;Chest pain, unspecified;Alcohol abuse with intoxication;Tobacco use Presentation: 07/31 17:30 Presenting complaint: EMS states: Pt. c/o chest pain 6/10 and pressure x 2 days, has rb1 history of A-fib and 7 TIA's. Has had 5 beers today, was here earlier for a legal draw. Has a pacemaker, but it has not fired yet. 12 - Lead showed A-Fib. Vital signs are stable. Allergy to Codeine. Medications are Metoprolol, Lasix, Aspirin, Lisinopril, and Digoxin. Transition of care: [facility] custody. Onset of symptoms was July 28, 2018. Risk Assessment: Do you want to hurt yourself or someone else? Patient reports no desire to harm self or others. Initial Sepsis Screen: Does the patient meet any 2 criteria? No. Patient's initial sepsis screen is negative. Does the patient have a suspected source of infection? No. Patient's initial sepsis screen is negative. Care prior to arrival: None. 17:30 Method Of Arrival: EMS: [facility] rb1 17:30 Acuity: MARILUZ 3 rb1 Triage Assessment: 17:30 General: Appears in no apparent distress. comfortable, Behavior is calm, cooperative, rb1 Denies fever. Pain: Complains of pain in mid-sternal area Pain radiates to back Pain currently is 6 out of 10 on a pain scale. Neuro: Level of Consciousness is awake, alert, obeys commands, Oriented to person, place, time, situation. Cardiovascular: Capillary refill < 3 seconds is brisk in bilateral fingers. Respiratory: Airway is patent Respiratory effort is even, unlabored, Respiratory pattern is regular, symmetrical. : No signs and/or symptoms were reported regarding the genitourinary system. Derm: Skin is pink, warm \T\ dry. Historical: - Allergies: 17:30 Codeine; rb1 - Home Meds: 17:30 Lasix 80 mg Oral tab 2 times per day [Active]; Eliquis 5 mg Oral tab 1 tab 2 times per rb1 day [Active]; Metoprolol Tartrate Oral [Active]; aspirin 81 mg Oral chew 1 tab once daily [Active]; lisinopril Oral [Active]; digoxin oral [Active]; - PMHx: 17:30 Atrial Fib; CHF; Hypertension; rb1 - PSHx: 17:30 hernia; rb1 - Immunization history:: Adult Immunizations up to date. - Social history:: Smoking status: Patient uses tobacco products, smokes one-half pack cigarettes per day. - Ebola Screening: : Patient negative for fever greater than or equal to 101.5 degrees Fahrenheit, and additional compatible Ebola Virus Disease symptoms. - Family history:: not pertinent. Screenin:30 Abuse screen: Denies threats or abuse. Nutritional screening: No deficits noted. rb1 Tuberculosis screening: No symptoms or risk factors identified. Fall Risk None identified. Assessment: 17:30 Pain: Pain began 2-3 days ago. rb1 18:22 Reassessment: Renaldo FRANCO uncuffed the pt. and released him from custody at this rb1 time. The pt. is free to leave when he is discharged per Renaldo RFANCO. Pt. is suppose to turn himself in at the police station tomorrow. 18:30 Reassessment: Patient appears in no apparent distress at this time. No changes from [facility] previously documented assessment. 19:24 Reassessment: PT Eloped from ED, with IV status unknown. [facility] notified. jb4 Vital Signs: 17:30 BP 108 / 61; Pulse 81; Resp 19; Temp 97.8(O); Pulse Ox 97% on R/A; Weight 97.52 kg (R); rb1 Height 5 ft. 8 in. (172.72 cm) (R); Pain 6/10; 18:30 BP 111 / 63; Pulse 76; Resp 17; Pulse Ox 99% on R/A; rb1 17:30 Body Mass Index 32.69 (97.52 kg, 172.72 cm) rb1 ED Course: 17:30 Patient maintains SpO2 saturation greater than 95% on room air. rb1 17:30 Arm band placed on right wrist. rb1 17:30 Patient has correct armband on for positive identification. Bed in low position. Call rb1 light in reach. Side rails up X 1. ekg monitor tech on. Pulse ox on. NIBP on. 17:43 Patient arrived in ED. rb1 17:44 Pascual Roach MD is Attending Physician. saad 17:49 Triage completed. rb1 17:56 EKG done, by ED staff, reviewed by Pascual Roach MD. 3 18:02 XRAY Chest (1 view) In Process Unspecified. EDSD 18:08 Initial lab(s) drawn, by [facility], sent to lab. Inserted saline lock: 20 gauge in right hand, 3 using aseptic technique. Blood collected. 18:11 Chey Gaxiola, RN is Primary Nurse. rb1 18:34 Urine collected: urinal, car. 3 18:52 Notified ED physician of a critical lab result(s). CKMB 19.1. hb 19:00 Report given to STEVAN Brice. [facility] 19:05 Chris Madera MD is Hospitalizing Provider. [facility] [place] 19:21 Primary Nurse role handed off by Chey Gaxiola, STEVAN jb4 19:21 Duke Logan, RN is Primary Nurse. jb4 Administered Medications: 18:23 Drug: Thiamine 100 mg Route: IV; Rate: bolus; Site: right hand; hb 18:23 Drug: Pepcid 20 mg Route: IVP; Site: right hand; hb 18:48 Follow up: Response: No adverse reaction rb1 18:42 Drug: Eliquis 5 mg Route: PO; rb1 19:34 Not Given (Patient Eloped): Digoxin 0.25 mg IVP once jb4 19:34 Not Given (Patient Eloped): Digoxin Tablet 0.25 mg PO once jb4 Outcome: 19:06 Decision to Hospitalize by Provider. saad 20:24 Eloped from patient exam room, after seeing physician 20:24 Patient left the ED. bb Signatures: Dispatcher [employer] EDSD Pascual Roach MD MD cha Ballard, Brenda, RN RN Chey Mariano, RN RN Alka Boles RN RN Duke Logan RN RN jb [facility]
[2018-07-31 19:42] LABS: Urine Blood NEGATIVE (NEG); Urine Glucose NEGATIVE (NEG); Urine Protein NEGATIVE (NEG); Urine Specific Gravity <1.005 (1.005-1.030); Urine pH 5.5 (5.0-7.0)
[2018-07-31 20:38] VITALS: BP 111/63; O2SAT 99
--- NOTE | 2018-08-01 07:45 | EKG ---
Test Date: 2018-07-31 Test Time: 17:51:56 Track Broom Operator: PAMELA MEASUREMENT RESULTS: Intervals: Rate: 79 MT: QRSD: 96 QT: 388 QTc: 444 [place]: P: MT: QRS: -11 T: 66 INTERPRETIVE STATEMENTS: Atrial fibrillation Nonspecific ST abnormality Abnormal ECG Compared to ECG 11/18/2017 02:10:30 Left-axis deviation no longer present ST (T wave) deviation still present Electronically Signed On 08-01-18 07:43:50 CDT by Umair Jaffe
== END ==
LOC: ER 17:35
DX: I48.91 Unspecified atrial fibrillation (principal); I48.92 Unspecified atrial flutter; F10.129 Alcohol abuse with intoxication, unspecified; Z72.0 Tobacco use; I11.0 Hypertensive heart disease with heart failure; I50.9 Heart failure, unspecified; F17.210 Nicotine dependence, cigarettes, uncomplicated; Z79.82 Long term (current) use of aspirin; Z79.01 Long term (current) use of anticoagulants
CPT/HCPCS: 36415; 71045; 80048; 80076; 80162; 80307; 80320; 81003; 82550; 82553; 83690; 83735; 83880; 84443; 84484; 85025; 85610; 93005; 96374; 96375; 99285; J1160; J3411

== ENCOUNTER 2018-09-29 12:56 | Emergency (ER) | payer SELFPAY ==
--- OUTSIDE RECORDS SUMMARY | 2018-09-29 12:58 | XMS REPORT ---
:1965 [facility] Address [address] [place] [address] Care Team Providers Name Role Phone Unavailable Unavailable Unavailable Problems This patient has no known problems. Allergies, Adverse Reactions, Alerts This patient has no known allergies or adverse reactions. Medications This patient has no known medications.
[2018-09-29] MEDS ORDERED: NA CHLORIDE 0.9% 500 ML ONE ×2 (13:49→16:37)
--- NOTE | 2018-09-29 13:55 | RAD REPORT ---
EXAM DESCRIPTION: RAD - Chest Single View - 09/29/2018 1:44 pm CLINICAL HISTORY: Dyspnea, shortness of breath COMPARISON: July 2018 TECHNIQUE: AP portable chest image was obtained 1341 hours . FINDINGS: Lungs are clear. Lung markings are similar to comparison. Left-sided pacemaker remains in place. Heart and vasculature are normal. No measurable pleural effusion and no pneumothorax. No acute bony abnormality seen. No acute aortic findings suspected. IMPRESSION: No acute cardiopulmonary process. No significant change from comparison.
--- NOTE | 2018-09-29 13:57 | RAD REPORT ---
EXAM DESCRIPTION: CT - Head Brain Wo Cont - 09/29/2018 1:45 pm CLINICAL HISTORY: Transient alteration of awareness, dizziness COMPARISON: CT August 2017 TECHNIQUE: Axial 5 mm thick images of the head were obtained without IV contrast. All CT scans are performed using dose optimization technique as appropriate and may include automated exposure control or mA/KV adjustment according to patient size. FINDINGS: No intracranial hemorrhage, mass, edema or shift of mid-line structures. No acute infarcti on changes seen. No abnormal extra-axial fluid collections. Ventricles are normal. Intracranial findi ngs are similar to comparison. Mastoid air cells and visualized portions of the paranasal sinuses are clear. No acute bony findings. IMPRESSION: Negative non-contrast CT head examination for acute or significant finding. No identifiable change from August 2017.
[2018-09-29 14:57] LABS: Absolute Lymphocytes (CBC) 1.8 K/uL (0.7-4.9); Basophils % 1.3 % (0-1.3); Eosinophils % 0.8 % (0-4.4); Hematocrit 52.8 % (39.6-49.0); Lymphocytes % 27.6 % (15.3-44.8); MPV 9.1 fL (7.6-11.3); Monocytes % 10.9 % (3.3-12.3); Protime INR 1.33; RBC Red Blood Cell Count 5.63 M/uL (4.33-5.43)
[2018-09-29 15:15] LABS: ALT/SGPT 89 U/L (12-78); AST/SGOT 101 U/L (15-37); Albumin 3.1 g/dL (3.4-5.0); Alkaline Phosphatase 87 U/L (45-117); BUN Blood Urea Nitrogen 17 mg/dL (7-18); Bicarbonate 26 mmol/L (21-32); Bilirubin Direct 0.4 mg/dL (0-0.2); Bilirubin Total 1.1 mg/dL (0.2-1.0); Glucose Level 97 mg/dL (74-106); Magnesium 1.7 mg/dL (1.8-2.4); NT PRO-BNP 336 pg/mL (<125); Potassium 3.4 mmol/L (3.5-5.1); Protein, Total 6.8 g/dL (6.4-8.2); Sodium Level 138 mmol/L (136-145); Troponin (Emerg Dept Use Only) < 0.02 ng/mL (0.0-0.045)
[2018-09-29 15:26] LABS: Blood Morphology Comment NOT SEEN (NOT SEEN); Platelet Estimate ADEQ
[2018-09-29] MEDS ORDERED: POTASSIUM CL SA 10 MEQ TAB PO ONE (16:37)
[2018-09-29] MEDS ORDERED: MAGNESIUM SULFATE 1 gm IVPB 1 GM/100 ML BAG IV ONE (16:37)
[2018-09-29] MEDS ORDERED: ACETAMINOPHEN 500 MG TAB ONE (16:37)
--- NOTE | 2018-09-29 18:40 | EKG ---
Test Date: 2018-09-29 Test Time: 13:11:28 Resource Engineer: JENNIFER MEASUREMENT RESULTS: Intervals: Rate: 124 TX: QRSD: 92 QT: 294 QTc: 422 [place]: P: TX: QRS: 8 T: 24 INTERPRETIVE STATEMENTS: Atrial fibrillation with rapid ventricular response with premature ventricular or aberrantly conducted complexes Abnormal ECG Compared to ECG 07/31/2018 17:51:56 Ventricular premature complex(es) now present ST (T wave) deviation no longer present Electronically Signed On 09-29-18 18:38:52 CDT by Juan Nuñez
--- NOTE | 2018-09-29 19:20 | ER ---
Nurse's Notes [facility] Name: Jayson Burns Age: 53 yrs Sex: Male : 1965 Arrival Date: 09/29/2018 Time: 12:57 Bed 2 Private MD: Diagnosis: Systolic (congestive) heart failure Presentation: 09/29 13:02 Presenting complaint: Patient states: He started having dizziness, shortness of breath, aj1 and chest tightness since 0900 today that has gotten progressively worse. Cyanosis noted to bilateral arms. Transition of care: patient was not received from another setting of care. Onset of symptoms was September 29, 2018 at 09:00. Risk Assessment: Do you want to hurt yourself or someone else? Patient reports no desire to harm self or others. Initial Sepsis Screen: Does the patient meet any 2 criteria? RR > 20 per min. HR > 90 bpm. Yes Does the patient have a suspected source of infection? No. Patient's initial sepsis screen is negative. 13:05 Note Notified provider of MARILUZ 2 patient, chest pain, SOB and cyanosis. aj1 13:14 Care prior to arrival: None. aj1 13:14 Method Of Arrival: Wheelchair aj1 13:14 Acuity: MARILUZ 2 aj1 Triage Assessment: 13:20 General: Appears uncomfortable, Behavior is cooperative, agitated, restless. Pain: aj1 Complains of pain in chest. Neuro: Level of Consciousness is awake, alert, obeys commands, Oriented to person, place, time, situation. Cardiovascular: Reports chest pain, lightheadedness, palpitations, shortness of breath, cyanosis noted to bilateral arms. Rhythm is atrial fibrillation. Respiratory: Reports shortness of breath Airway is patent Respiratory effort is even, unlabored, Respiratory pattern is regular, symmetrical, tachypnea Onset: The symptoms/episode began/occurred suddenly, the patient has moderate shortness of breath. Historical: - Allergies: 13:20 Codeine; aj1 - Home Meds: 13:20 aspirin 81 mg Oral chew 1 tab once daily [Active]; Metoprolol Tartrate Oral [Active]; aj1 Eliquis 5 mg Oral tab 1 tab 2 times per day [Active]; Digoxin Oral [Active]; losartan oral oral [Active]; Lasix 80 mg Oral tab 2 times per day [Active]; - PMHx: 13:20 Atrial Fib; CHF; Hypertension; defibrillator; aj1 - Immunization history:: Flu vaccine is up to date. - Social history:: Smoking status: Patient uses tobacco products, denies chronic smoking, but will smoke occasionally. - Ebola Screening: : Patient denies travel to an Ebola-affected area in the 21 days before illness onset. Screenin:36 Abuse screen: Denies threats or abuse. Denies injuries from another. sg Assessment: 13:30 General: Appears in no apparent distress. well groomed, well developed, well nourished, sg Behavior is calm, cooperative, appropriate for age. Pain: Complains of pain in chest. 13:30 Neuro: Level of Consciousness is awake, alert, obeys commands, Oriented to person, sg place, time, [employer] Developer are equal bilaterally Moves all extremities. Full function Speech is normal, Facial symmetry appears normal. Cardiovascular: Capillary refill is brisk in bilateral fingers Patient's skin is warm and dry. Chest pain is denied. Respiratory: Airway is patent Respiratory effort is even, unlabored, Respiratory pattern is regular, symmetrical, Breath sounds are clear bilaterally. Respiratory: Reports shortness of breath at rest. GI: Abdomen is round non-distended, obese, Reports tolerance of fluids, tolerance of food. : No signs and/or symptoms were reported regarding the genitourinary system. EENT: No signs and/or symptoms were reported regarding the EENT system. Derm: Skin is pink, warm \T\ dry. Musculoskeletal: Circulation, motion, and sensation intact. Range of motion: intact in all extremities, Swelling absent. Vital Signs: 13:20 BP 92 / 72; Pulse 125; Resp 24; Pulse Ox 100% on R/A; aj1 15:02 BP 98 / 62; Pulse 92; Resp 16; Pulse Ox 100% on R/A; sg 17:30 BP 110 / 66; Pulse 87; Resp 16; Temp 97.2; Pulse Ox 99% on R/A; Pain 0/10; sg ED Course: 12:57 Patient arrived in ED. as 13:08 Froylan Whitmore, STEVAN is Primary Nurse. sg 13:09 Marcos Diego PA is PHCP. jr8 13:09 Brad Lowery MD is Attending Physician. jr8 13:17 Triage completed. aj1 13:18 EKG done, by hospital laboratory technician. reviewed by Marcos BOWEN. sm3 13:20 Arm band placed on Patient Patient triaged in ER bed 2. aj1 13:30 Patient has correct armband on for positive identification. Bed in low position. Call sg light in reach. 13:35 Inserted saline lock: 22 gauge in right wrist, using aseptic technique. Missed em1 attempt(s): 20 gauge in right hand. Bleeding controlled, band aid applied, catheter tip intact. 13:41 X-ray completed. Portable x-ray completed in exam room. Patient tolerated procedure jb2 well. 13:[address] via stretcher. sg 13:41 XRAY Chest (1 view) Sent. hb 13:45 XRAY Chest (1 view) In Process Unspecified. EDMS 13:45 CT Head Brain wo Cont In Process Unspecified. EDMS 17:15 No provider procedures requiring assistance completed. IV discontinued, intact, sg bleeding controlled, No redness/swelling at site. Pressure dressing applied. Administered Medications: 13:40 Drug: NS 0.9% 500 ml Route: IV; Rate: bolus; Site: right wrist; hb 16:25 Drug: Tylenol 1000 mg Route: PO; sg 16:25 Drug: Magnesium Sulfate 1 grams Route: IVPB; Infused Over: 1 hrs; Site: right hand; sg 16:25 Drug: Potassium Chloride 20 mEq Route: PO; sg 16:33 Drug: NS 0.9% 500 ml Route: IV; Rate: bolus; Site: right hand; sg Outcome: 17:25 Discharge ordered by MD. waters 17:33 Discharged to home ambulatory, with family. sg 17:33 Condition: good 17:33 Discharge instructions given to patient, family, Instructed on discharge instructions, follow up and referral plans. safety practices, Demonstrated understanding of instructions, follow-up care. 17:35 Patient left the ED. sg Signatures: Dispatcher [employer] EDMS Christine Chaudhry RN RN aj1 Froylan Whitmore RN RN sg Buechter, Jesse jb2 Nadege Hooper Eric em1 Marcos Diego PA PA jr8 Alka Paredes RN RN Renate Felix 3 Corrections: (The following items were deleted from the chart) 13:24 13:14 Presenting complaint: Patient states: He started having dizziness, shortness of aj1 breath, and chest tightness since 0900 today that has gotten progressively worse. Cyanosis noted to bilateral arms. aj1 13:14 Transition of care: patient was not received from another setting of care. aj1 [facility] 13:14 Onset of symptoms was September 29, 2018 at 09:00 aj1 [facility] 13:14 Risk Assessment: Do you want to hurt yourself or someone else? Patient reports no aj1 desire to harm self or others. aj1 13:14 Initial Sepsis Screen: Does the patient meet any 2 criteria? RR > 20 per min. HR aj1 > 90 bpm. Yes Does the patient have a suspected source of infection? No. Patient's initial sepsis screen is negative. aj1 17:40 16:15 General: Appears in no apparent distress. well groomed, well developed, well sg nourished, Behavior is calm, cooperative, appropriate for age, sg 17:40 16:15 Pain: Complains of pain in chest sg sg
--- NOTE | 2018-09-29 19:21 | EDPHYS ---
Physician Documentation [facility] Name: Jayson Burns Age: 53 yrs Sex: Male : 1965 Arrival Date: 09/29/2018 Time: 12:57 Bed 2 Private MD: ED Physician Brad Lowery HPI: 09/29 15:25 This 53 yrs old Male presents to ER via Wheelchair with complaints of jr8 Shortness Of Breath. 15:25 The patient has shortness of breath with light activity. Onset: The symptoms/episode jr8 began/occurred acutely, today. Duration: The symptoms are continuous. The patient's shortness of breath is aggravated by light activity, walking. Associated signs and symptoms: Pertinent positives: chest pain, speech changes, cool upper extremities. Severity of symptoms: At their worst the symptoms were moderate in the emergency department the symptoms are unchanged. It is unknown whether or not the patient has had similar symptoms in the past. The patient has not recently seen a physician. 15:48 Patient stated that he has severe heart failure. While on riding mower started to feel jr8 short of breath. Stopped and went in to see if he was overheated but now having chest tightness and cool feeling extremities with speech changes. All symptoms started around 9 am this morning . Historical: - Allergies: 13:20 Codeine; aj1 - Home Meds: 13:20 aspirin 81 mg Oral chew 1 tab once daily [Active]; Metoprolol Tartrate Oral [Active]; aj1 Eliquis 5 mg Oral tab 1 tab 2 times per day [Active]; Digoxin Oral [Active]; losartan oral oral [Active]; Lasix 80 mg Oral tab 2 times per day [Active]; - PMHx: 13:20 Atrial Fib; CHF; Hypertension; defibrillator; aj1 - Immunization history:: Flu vaccine is up to date. - Social history:: Smoking status: Patient uses tobacco products, denies chronic smoking, but will smoke occasionally. - Ebola Screening: : Patient denies travel to an Ebola-affected area in the 21 days before illness onset. ROS: 15:48 Eyes: Negative for injury, pain, redness, and discharge, ENT: Negative for injury, jr8 pain, and discharge, Neck: Negative for injury, pain, and swelling, Abdomen/GI: Negative for abdominal pain, nausea, vomiting, diarrhea, and constipation, Back: Negative for injury and pain, MS/Extremity: Negative for injury and deformity, Skin: Negative for injury, rash, and discoloration. 15:48 Cardiovascular: Positive for chest pain, Negative for edema, orthopnea, palpitations, paroxysmal nocturnal dyspnea. 15:48 Respiratory: Positive for shortness of breath. 15:48 Neuro: Positive for speech changes, near syncope. Exam: 15:52 Head/Face: Normocephalic, atraumatic. Eyes: Pupils equal round and reactive to light, jr8 extra-ocular motions intact. Lids and lashes normal. Conjunctiva and sclera are non-icteric and not injected. Cornea within normal limits. Periorbital areas with no swelling, redness, or edema. ENT: Nares patent. No nasal discharge, no septal abnormalities noted. Tympanic membranes are normal and external auditory canals are clear. Oropharynx with no redness, swelling, or masses, exudates, or evidence of obstruction, uvula midline. Mucous membranes moist. Neck: Trachea midline, no thyromegaly or masses palpated, and no cervical lymphadenopathy. Supple, full range of motion without nuchal rigidity, or vertebral point tenderness. No Meningismus. Abdomen/GI: Soft, non-tender, with normal bowel sounds. No distension or tympany. No guarding or rebound. No evidence of tenderness throughout. Back: No spinal tenderness. No costovertebral tenderness. Full range of motion. MS/ Extremity: Pulses equal, no cyanosis. Neurovascular intact. Full, normal range of motion. 15:52 Cardiovascular: Rate: normal, Rhythm: regular, Pulses: Pulses are 1+ in right radial artery and left radial artery. Heart sounds: normal, normal S1and S2, no S3 or S4, no murmur, no rub, no gallop, Edema: is not appreciated. 15:52 Respiratory: mild respiratory distress is noted, Respirations: tachypnea, Breath sounds: are clear throughout, no bronchial sounds, no decreased breath sounds, no rales, rhonchi, no stridor, no wheezing. 15:52 Skin: cool, pale upper extremities in the lower arms and hands noted with decreased cap refill . Vital Signs: 13:20 BP 92 / 72; Pulse 125; Resp 24; Pulse Ox 100% on R/A; aj1 15:02 BP 98 / 62; Pulse 92; Resp 16; Pulse Ox 100% on R/A; sg 17:30 BP 110 / 66; Pulse 87; Resp 16; Temp 97.2; Pulse Ox 99% on R/A; Pain 0/10; sg MDM: 13:09 Patient medically screened. [facility] 17:22 Data reviewed: vital signs, nurses notes, lab test result(s), EKG, radiologic studies, jr plain films. Data interpreted: Pulse oximetry: on room air is 100 %. Interpretation: normal. Counseling: I had a detailed discussion with the patient and/or guardian regarding: the historical points, exam findings, and any diagnostic results supporting the discharge/admit diagnosis, lab results, radiology results, the need for outpatient follow up, a drier helper, to return to the emergency department if symptoms worsen or persist or if there are any questions or concerns that arise at home. Response to treatment: the patient's symptoms have resolved after treatment. ED course: Patient after resting and with a couple of boluses is now completely back to normal. Up walking and going to the bathroom. All symptoms have resolved. Explained to patient between the extreme heat and the light activity on top of having a very sick heart. Was enough to send him into an acute cardiac insufficiency. Needs to f/u with his heart failure team soon. Patient is good with everything and ready to go home . 09/29 13:31 Order name: Basic Metabolic Panel; Complete Time: 16: 09/29 13:31 Order name: CBC with Diff; Complete Time: 16:21 09/29 13:31 Order name: LFT's; Complete Time: 16:09/29 13:31 Order name: Magnesium; Complete Time: 16:09/29 13:31 Order name: NT PRO-BNP; Complete Time: 16:08 09/29 13:31 Order name: PT-INR; Complete Time: 16:07 09/29 13:31 Order name: Troponin (emerg Dept Use Only); Complete Time: 16:08 09/29 13:31 Order name: XRAY Chest (1 view); Complete Time: 14:46 09/29 13:32 Order name: CT Head Brain wo Cont; Complete Time: 14:46 09/29 16:08 Order name: Manual Differential EDMS 09/29 13:31 Order name: EKG; Complete Time: 13:33 8 09/29 13:31 Order name: Cardiac monitoring; Complete Time: 13:41 [facility] 09/29 13:31 Order name: EKG - Nurse/Tech; Complete Time: 13:41 8 09/29 13:31 Order name: IV Saline Lock; Complete Time: 13:41 8 09/29 13:31 Order name: Labs collected and sent; Complete Time: 13: 8 09/29 13:31 Order name: O2 Per Protocol; Complete Time: 13:41 8 09/29 13:31 Order name: O2 Sat Monitoring; Complete Time: 13: Administered Medications: 13:40 Drug: NS 0.9% 500 ml Route: IV; Rate: bolus; Site: right wrist; hb 16:25 Drug: Tylenol 1000 mg Route: PO; sg 16:25 Drug: Magnesium Sulfate 1 grams Route: IVPB; Infused Over: 1 hrs; Site: right hand; sg 16:25 Drug: Potassium Chloride 20 mEq Route: PO; sg 16:33 Drug: NS 0.9% 500 ml Route: IV; Rate: bolus; Site: right hand; sg Disposition: 09/30 13:50 Co-signature as Attending Physician, Brad Lowery MD I agree with the assessment and kdr plan of care. Disposition: 09/29/18 17:25 Discharged to Home. Impression: Systolic (congestive) heart failure. - Condition is Stable. - Discharge Instructions: Heart Failure. - Medication Reconciliation Form, Thank You Letter, Antibiotic Education, Prescription Opioid Use form. - Follow up: Private Physician; When: 1 - 2 days; Reason: Recheck today's complaints, Continuance of care, Re-evaluation by your physician. - Problem is new. - Symptoms are resolved. Signatures: [facility]patcher [facility] Christine Chaudhry RN RN aj1 Froylan Whitmore RN RN sg Rittger, Kevin, MD MD kdr Roszak, Josh, PA PA jr8 Alka Paredes, STEVAN RN hb Corrections: (The following items were deleted from the chart) 09/29 17:35 17:25 09/29/2018 17:25 Discharged to Home. Impression: Systolic (congestive) heart sg failure. Condition is Stable. Forms are Medication Reconciliation Form, Thank You Letter, Antibiotic Education, Prescription Opioid Use. Follow up: Private Physician; When: 1 - 2 days; Reason: Recheck today's complaints, Continuance of care, Re-evaluation by your physician. Problem is new. Symptoms are resolved. jr8
[2018-09-29 20:47] VITALS: BP 110/66; TEMP 97.2; O2SAT 99
== END 2018-09-29 17:35 | disposition home or self-care (01) ==
LOC: ER 12:56
DX: I50.20 Unspecified systolic (congestive) heart failure (principal); I10 Essential (primary) hypertension; I48.91 Unspecified atrial fibrillation; Z79.01 Long term (current) use of anticoagulants; Z79.82 Long term (current) use of aspirin; Z88.5 Allergy status to narcotic agent; Z95.810 Presence of automatic (implantable) cardiac defibrillator
CPT/HCPCS: 36415; 70450; 71045; 80048; 80076; 83735; 83880; 84484; 85025; 85610; 93005; 96374; 99285; J3475

== ENCOUNTER 2021-12-03 08:10 | Inpatient (IN) | payer OTHER, SELFPAY ==
--- OUTSIDE RECORDS SUMMARY | 2021-12-03 08:13 | XMS REPORT | Continuity of Care Document ---
:1965 Author Organization [facility] t Address [address] [place] [address] Care Team Providers Name Role Phone PCP, PATIENT DOES NOT HAVE A Primary Care Physician UnavailBelinda Meeks MD Attending Clinician BELINDA MILES Attending Clinician Unavailable Rafiq Dunlap Attending Clinician Unavailable Gabriel Riley Attending Clinician Unavailable Ulises Lees Attending Clinician Unavailable Payers Payer Name Policy Type Policy Number Effective Date Expiration Date S ource Problems Condition Condition Condition Status Onset Resolution Last Treating Co mments Source Name Details Category Date Date Treatment Clinician Date Orthostati Orthostati Disease Active U nivers c c 9-16 [place]y [place] [facility] Cellulitis Cellulitis Disease Active U nivers of right of right 9-07 ity of breast breast 00:00: [place] 00 Medical Branch Cirrhosis Cirrhosis Disease Active Uni vers of liver of liver 4-08 ity of without without 00:00: [place] ascites ascites 00 Medical Branch Acute on Acute on Disease Active Unive rs chronic chronic 4-06 [place] of congestive congestive [place] heart heart 00 Medical failure, failure, Branch unspecifie unspecifie d heart d heart failure failure type type ICD ICD Disease Active Univers (implantab (implantab 7-11 it y of le le 00:00: [place] cardiovert cardiovert 00 Me dical er-defibri er-defibri Br anch llator) in llator) in place place Chronic Chronic Disease Active Univers systolic systolic 2-07 ity of heart heart 00:00: [place] failure failure 00 Medical Branch Acute Acute Disease Active 2017-04 Univers decompensa decompensa 0-09 it y of mark heart mark heart 00:[place] failure failure 00 [place] Obesity Obesity Disease Active Univers (BMI (BMI 4-04 ity of 30-39.9) 30-39.9) 00:00: [place] 00 Medical Branch Atrial Atrial Disease Active Univers thrombus thrombus 5-23 ity of 00:00: [place] 00 Medical Branch Warfarin-i Warfarin-i Disease Active U nivers nduced nduced 1-31 ity of coagulopat coagulopat [place] hy hy 00 [facility] Atrial Atrial Disease Active Univers fibrillati fibrillati 8-16 it y of on on 00:00: [place] [facility] Essential Essential Disease Active Overview: Univers hypertensi hypertensi 8-16 Formattin ity of on on 00:00: g of this note Medical might be Branch different from the original. ICD10 Diagnosis Term Box Lidder Utility Cardiomyop Cardiomyop Disease Active U nivers athy athy 6-16 ity of 00:00: [place] 00 Medical Branch Transient Transient Disease Active Overview: Univers cerebral cerebral 4-01 Formattin ity of ischemia ischemia 00:00: g of this [place] as 00 note Medical might be Branch different from the original. ICD10 Diagnosis Term Box Lidder Utility Allergies, Adverse Reactions, Alerts Allergy Allergy Status Severity Reaction(s) Onset Inactive Treating Comm ents Source Name Type Date Date Clinician Codeine Propensi Active Swelling 2020-04 Unive rs ty to 112 ity of adverse 00:00: [place] reaction 00 Medical s Branch CODEINE DRUG Active Swelling 2020-04 Univers INGREDI 1-12 ity of 00:00: [place] 00 Medical Branch Social History Social Habit Start Date Stop Date Quantity Comments Source History [facility] University o f Alcohol Std Drinks [place] [facility] History [facility] University o f Alcohol Binge [place] [facility] Branch History of tobacco Cigarette Smoker University of use [place] [facility] History [facility] University o f Alcohol Frequency [facility] edical Branch Exposure to 2021-09-30 2021-10-10 Not sure University of SARS-CoV-2 (event) 00:00:00 08:46:00 [facility] Alcohol intake 2021-07-04 2021-07-04 1.71 /d University of 00:00:00 00:00:00 [facility] Cigarettes smoked 2018-09-19 2018-09-19 Univers ity of current (pack per 00:00:00 00:00:00 [facility] ) - Reported Branch Cigarette 2018-09-19 2018-09-19 University of pack-years 00:00:00 00:00:00 [facility] Tobacco use and 2018-09-19 2018-09-19 Never used Universit y of exposure 00:00:00 00:00:00 [facility] Alcohol Comment 2013-06-24 2013-06-24 18-24 beers/day Univ ersity of 00:00:00 00:00:00 for 20-25 years [facility] Branch Tobacco Comment 2013-06-24 2013-06-24 Started smoking Univ ersity of 00:00:00 00:00:00 when he was [age] [facility] dical years old. Branch Sex Ass[birth year] At [birth year] Universit y of 00:00:00 00:00:00 [facility] Smoking Status Start Date Stop Date Source Former smoker 2018-09-19 00:00:00 2018-09-19 00:00:00 Universi ty [facility] Medications Ordered Filled Start Stop Current Ordering Indication Dosage Frequency Signature Comments Components Source Medication Medication Date Date Medication? Clinician (SIG) Name Name metoprolol 2021- No 50mg Take 50 mg Univers succinate 10-10 by mouth 2 ity of XL 50 mg 24 09:33: 00[place] (two[place] tablet 14 :00 times Medical daily. Branch warfarin 2021- No 2.5mg Take 2.5 Uni vers 2.5 mg 10-10- mg by ity of tablet 09:31: 00:00 mouth. 3 [place] 57 :00 tabs oral Medical every Branch evening metoprolol Yes [id number] 50mg Take 1 Univers succinate - tablet by ity o f XL 50 mg 24 00:00: mouth 2 [place] hr tablet 00 (two) Medical times Branch daily. apixaban 5 Yes [id number] 5mg Take 1 Unive rs mg tablet 7-01 tablet by ity o f 00:00: mouth 2 [place] [address] (two) Medical times Jean daily. Indication s: atrial fibrillati on Immunizations Ordered Filled Immunization Date Status Comments Sour e Immunization Name Name SARS-COV-2 COVID-19 2020-09-03 Completed Unive rsity of MODERNA VACCINE 00:00:00 [facility] SARS-COV-2 COVID-19 2020-07-29 Completed Unive rsity of MODERNA VACCINE 00:00:00 [facility] Influenza Virus 2020-01-13 Completed Universit y of Vaccine Quad ID 00:00:00 [facility] 18-64 YRS Branch Influenza Virus 2018-01-22 Completed Universit y of Vaccine Quad .5 mL 00:00:00 [facility] 6+ MO Branch Pneumococcal 2013-06-28 Completed University o f Polysaccharide, 00:00:00 [facility] PPSV23 (PNEUMOVAX) Jean Influenza Virus 2013-04-19 Completed Universit y of Vaccine - Whole 00:00:00 [facility] Influenza Virus 2010-05-12 Completed Universit y of Vaccine 00:00:00 [facility] Vital Signs Vital Name Observation Time Observation Value Comments Source Systolic blood 2021-10-10 14:10:00 149 mm[Hg] Univer sity of pressure [facility] Diastolic blood 2021-10-10 14:10:00 94 mm[Hg] Unive rsity of pressure [facility] Heart rate 2021-10-10 14:10:00 93 /min [facility] Oxygen saturation in 2021-10-10 14:10:00 98 /min [facility] Arterial blood by [facility] Pulse oximetry Jean Body temperature 2021-10-10 14:07:[address] [facility] Respiratory rate 2021-10-10 14:07:00 17 /min [facility] Body height 2021-10-10 14:07:00 172.7 cm [facility] Body weight 2021-10-10 14:07:00 103.738 kg [facility] BMI 2021-10-10 14:07:00 34.77 kg/m2 [facility] Procedures This patient has no known procedures. Encounters Start End Encounter Admission Attending Care Care Encounter Source Date/Time Date/Time Type Type Clinicians Facility Department ID 2017-12-09 Inpatient U [facility] [id number] [facility] L 01:18:00 2021-10-10 2021-10-10 Office Ginger [facility] [id number] Univers 09:00:00 09:45:03 Visit Artesther ESCOBARKELLEY [id number] itDaija [id number] [place] solo RENAIO [id number] Sc dical [facility]9 [facility] 2021-10-10 2021-10-10 Outpatient R [facility] [id number] Univers 09:00:00 09:45:03 EBLINDA duran o f [facility] 2020-12-25 2020-12-25 Emergency ER Germán STLSJX STLSJX [id number] STLSJX 09:42:00 09:42:00 Rafiq -[id number] 2020-12-16 2020-12-16 Emergency ER Osvaldo, STLSShannonX STLSJX [id number] STLSJX 13:50:00 13:50:00 Gabriel -[id number] 2020-07-16 2020-07-16 Emergency ER Nabeel, STLSJX STLSJX [id number] STLSJX 08:36:00 08:36:00 Ulises -[id number] Results Test Description Test Time Test Comments Results Result Sourc e Comments CT Chest W Con Name: ARGENTINA SALINAS : 1965 Sex: M [facility] Pt Name: ARGENTINA SALINAS [address] [facility] Phys: [place] [address] : 1965 Age: 55 SEX:M Exam Date: 12/16/20 Status: REG ER Acct: [id number] Loc: ISABELLA Pt Unit #: [id number] Report #: [id number] CC: Gabriel Riley MD CAT SCAN REPORT Order # Category/Exam [id number] CT/CT Chest W Con ([id number]): . Results EXAM: Chest CT with contrast HISTORY: Sepsis. Erythema and swelling around and in the right axilla TECHNIQUE:Postcontrast chest CT is performed in the axial plane COMPARISON:None FINDINGS: Lower neck and axilla:There is induration of the right axilla. No evidence of a axillary abscess. There is stranding and prominence of left axillary lymph nodes. The margins of the lymph nodes are d and there may be some intra-noah edema. Suggested lymph node measures approximately 1.6 cm. Mediastinum:No mass, lymphadenopathy or hematoma Aorta:Normal caliber aorta. No periaortic fat stranding. Heart:Normal heart size. No significant pericardial fluid. Coronary arteries:No significant atherosclerotic disease Subdiaphragmatic structures:No acute abnormality Trachea and central bronchi:Patent Pleural spaces:No pleural effusion Right lung:No mass, consolidation or contusion Left lung:Scarring/atelecta sis in the left lower lobe Osseous structures:No lytic or blastic lesions IMPRESSION: 1. Inflammatory changes in the right axilla without a discrete abscess. There does appear to be reactive changes in the right axillary lymph nodes correlate clinically Reported By: Margarita Berry MD Electronically Signed Date/Time: 12/16/20 1454 Technologist: Dictated Date/Time: 12/16/20 1450 Transcribed Date/Time: XR Chest 1 View Portable Name: ARGENTINA SALINAS : 1965 Sex: M [facility] Pt Name: ARGENTINA SALINAS [address] Phys: [place] [address] : 1965 Age: 55 SEX:M Exam Date: 07/16/20 Status: REG ER Acct: [id number] Loc: [facility] Pt Unit #: [id number] Report #: [id number] CC: Ulises Lees MD IMAGING SERVICES REPORT Order # Category/Exam [id number] RAD/XR Chest 1 View Portable ([id number]): . Results EXAM: Chest one view: HISTORY: Chest pain COMPARISON: None FINDINGS: Left transvenous cardiac device. Heart size: Within normal limits. Lungs: Clear of acute process. No evidence for confluent lobar pneumonia, significant pleural effusion, acute edema, or pneumothorax, or other significant acute process. IMPRESSION: No significant acute intrathoracic disease. Reported By: Brandyn Villafuerte MD Electronically Signed Date/Time: 07/16/20854 Technologist: CHITO Dictated Date/Time: 07/16/20854 Transcribed Date/Time:
--- NOTE | 2021-12-03 08:36 | ER ---
Nurse's Notes [facility] Name: Jayson Burns Age: 56 yrs Sex: Male : 1965 Arrival Date: 12/03/2021 Time: 08:11 Bed 17 Private MD: Diagnosis: Paroxysmal atrial fibrillation;Persistent atrial fibrillation;Heart failure, unspecified;Edema, unspecified Presentation: 12/03 08:18 Chief complaint: Patient states: SOB, palpitations, chest pressure x 3 days. jl Coronavirus screen: Vaccine status: Patient reports receiving the 2nd dose of the covid vaccine. At this time, the client does not indicate any symptoms associated with coronavirus-19. Ebola Screen: No symptoms or risks identified at this time. Initial Sepsis Screen: Does the patient meet any 2 criteria? No. Patient's initial sepsis screen is negative. Does the patient have a suspected source of infection? No. Patient's initial sepsis screen is negative. Risk Assessment: Do you want to hurt yourself or someone else? Patient reports no desire to harm self or others. Onset of symptoms. Care prior to arrival: None. 08:18 Method Of Arrival: Ambulatory [facility] 08:18 Acuity: MARILUZ 2 [facility] Triage Assessment: 17:43 General: Appears in no apparent distress. Behavior is calm, cooperative, appropriate jh5 for age. Respiratory: Reports shortness of breath at rest cough that is productive, Onset: The symptoms/episode began/occurred gradually, the patient has mild shortness of breath. Historical: - Allergies: 08:21 Codeine; jl7 - Home Meds: 08:21 Eliquis 5 mg Oral tab 1 tab 2 times per day [Active]; Metoprolol Tartrate Oral [Active];jl7 - PMHx: 08:21 Atrial Fib; CHF; defibrillator; Hypertension; jl7 - Immunization history:: Client reports receiving the 2nd dose of the Covid vaccine. - Social history:: Smoking status: Patient reports the use of cigarette tobacco products, smokes one-half pack cigarettes per day. Screenin:43 Abuse screen: Denies threats or abuse. Denies injuries from another. Nutritional jh5 screening: No deficits noted. Tuberculosis screening: No symptoms or risk factors identified. Fall Risk None identified. Assessment: 17:43 Pain: Denies pain. Cardiovascular: Rhythm is atrial fibrillation. Respiratory: Airway jh5 is patent Respiratory effort is even, labored, Breath sounds are coarse. Vital Signs: 08:18 BP 153 / 107; Pulse 168; Resp 27; Temp 97.9; Pulse Ox 94% on R/A; Weight 102.06 kg; jl7 Height 5 ft. 8 in. (172.72 cm); Pain 6/10; 09:04 BP 129 / 82; Pulse 108; Resp 22; Pulse Ox 96% ; jh5 08:18 Body Mass Index 34.21 (102.06 kg, 172.72 cm) jl7 ED Course: 08:11 Patient arrived in ED. am2 08:15 Theodora Downing, RN is Primary Nurse. ap3 08:21 Triage completed. jl7 08:21 Arm band placed on right wrist. Patient placed in an exam room, on a stretcher, on jl7 monitor technician, on pulse oximetry. 08:23 EKG done, by ED staff, reviewed by Brad Lowery MD. em1 08:25 Inserted saline lock: 20 gauge in right antecubital area, using aseptic technique. ap3 Blood collected. 08:26 Brad Lowery MD is Attending Physician. kdr 08:35 Jefferson Godfrey MD is Hospitalizing Provider. kdr 09:15 XRAY Chest (1 view) In Process Unspecified. EDMS 09:21 Lactate Sent. jh5 17:43 Patient has correct armband on for positive identification. Call light in reach. Side [facility] rails up X2. 17:43 No provider procedures requiring assistance completed. 5 Administered Medications: 09:02 Drug: Lopressor (metoprolol) 5 mg Route: IVP; Site: right antecubital; [facility] 09:02 Drug: Lopressor (metoprolol) 5 mg {Note: first dose 0850. second dose 0855. third dose 5 0900.} Route: IVP; Site: right antecubital; 09:04 Drug: Lopressor (metoprolol) 5 mg Route: IVP; Site: right antecubital; [facility] 09:20 Drug: NS 0.9% 500 ml Route: IV; Rate: bolus; Site: right antecubital; [facility] 09:21 Drug: Lovenox (enoxaparin) 1 mg/kg Route: Sub-Q; Site: abdomen; jh5 09:21 Drug: Ancef (cefazolin) 1 grams Route: IVPB; Site: right antecubital; 5 09:29 Drug: NS 0.9% 1000 ml Route: IV; Rate: 75 ml/hr; Site: right antecubital; 5 Medication: 17:43 VIS not applicable for this client. 5 Outcome: 08:36 Decision to Hospitalize by Provider. kdr 20:51 Patient left the ED. bb Signatures: Dispatcher [employer] EDMS Brad Lowery MD MD kdr Ballard, Brenda, RN RN Miah Myers emMarkel Chandra RN RN jl7 Theodora Gonzalez Amanda, RN RN ap3 Berenice Gillis RN RN jh5
--- NOTE | 2021-12-03 08:37 | EDPHYS ---
Physician Documentation [facility] – [place], [place] Name: Jayson Burns Age: 56 yrs Sex: Male : 1965 Arrival Date: 12/03/2021 Time: 08:11 Bed 17 Private MD: ED Physician Brad Lowery HPI: 12/03 08:28 This 56 yrs old Male presents to ER via Ambulatory with complaints of shaky, Breathing kdr Difficulty. 08:29 . kdr 08:30 Onset: The symptoms/episode began/occurred gradually, 1 week(s) ago. Severity of kdr symptoms: At their worst the symptoms were moderate severe incapacitating just prior to arrival, in the emergency department the symptoms are unchanged. The patient has not experienced similar symptoms in the past. The patient has not recently seen a physician. The patient states that he has been on and off his medications for the last few months. Due to circumstances outside of his personal sphere, he is had limited access to medications from time to time. He was seen at [facility] in at 1 point taken off all of his cardiac meds. For the last week however he is been short of breath with extensive's swelling to his lower extremities and shortness of breath. He has a known history of atrial fibrillation and has been on multiple medications including beta-blockers and amiodarone. Currently he is taking beta-blockers for rate control but has been poorly compliant. Historical: - Allergies: 08:21 Codeine; jl7 - Home Meds: 08:21 Eliquis 5 mg Oral tab 1 tab 2 times per day [Active]; Metoprolol Tartrate Oral [Active];jl7 - PMHx: 08:21 Atrial Fib; CHF; defibrillator; Hypertension; jl7 - Immunization history:: Client reports receiving the 2nd dose of the Covid vaccine. - Social history:: Smoking status: Patient reports the use of cigarette tobacco products, smokes one-half pack cigarettes per day. ROS: 08:30 Constitutional: Negative for fever, chills, and weight loss, Eyes: Negative for injury, kdr pain, redness, and discharge, ENT: Negative for injury, pain, and discharge, Neck: Negative for injury, pain, and swelling, Abdomen/GI: Negative for abdominal pain, nausea, vomiting, diarrhea, and constipation, Back: Negative for injury and pain, : Negative for injury, bleeding, discharge, and swelling, MS/Extremity: Negative for injury and deformity, Neuro: Negative for headache, weakness, numbness, tingling, and seizure activity. Psych: Negative for depression, anxiety, suicide ideation, homicidal ideation, and hallucinations, Allergy/Immunology: Negative for hives, rash, and allergies, Endocrine: Negative for neck swelling, polydipsia, polyuria, polyphagia, and marked weight changes, Hematologic/Lymphatic: Negative for swollen nodes, abnormal bleeding, and unusual bruising. 08:30 Cardiovascular: Positive for chest pain, edema, palpitations, Negative for paroxysmal nocturnal dyspnea. 08:30 Respiratory: Positive for dyspnea on exertion, shortness of breath, Negative for hemoptysis, orthopnea. 08:30 Skin: Positive for cellulitis, of the left leg. Exam: 08:30 Constitutional: This is a well developed, well nourished patient who is awake, alert, kdr and in no acute distress. Head/Face: Normocephalic, atraumatic. Eyes: Pupils equal round and reactive to light, extra-ocular motions intact. Lids and lashes normal. Conjunctiva and sclera are non-icteric and not injected. Cornea within normal limits. Periorbital areas with no swelling, redness, or edema. Neck: Trachea midline, no thyromegaly or masses palpated, and no cervical lymphadenopathy. Supple, full range of motion without nuchal rigidity, or vertebral point tenderness. No Meningismus. Chest/axilla: Normal chest wall appearance and motion. Nontender with no deformity. No lesions are appreciated. Abdomen/GI: Soft, non-tender, with normal bowel sounds. No distension or tympany. No guarding or rebound. No evidence of tenderness throughout. Back: No spinal tenderness. No costovertebral tenderness. Full range of motion. MS/ Extremity: Pulses equal, no cyanosis. Neurovascular intact. Full, normal range of motion. Neuro: Awake and alert, GCS 15, oriented to person, place, time, and situation. Cranial nerves II-XII grossly intact. Motor strength 5/5 in all extremities. Sensory grossly intact. Cerebellar exam normal. Normal gait. Psych: Awake, alert, with orientation to person, place and time. Behavior, mood, and affect are within normal limits. 08:30 Cardiovascular: Rate: tachycardic, actual rate is 168 bpm, Rhythm: irregularly irregular, Pulses: no pulse deficits are appreciated, Heart sounds: normal, Edema: 2+ edema to level of left midcalf, left ankle, left foot, right midcalf, right ankle and right foot. 08:30 ECG was reviewed by the Attending Physician. Vital Signs: 08:18 BP 153 / 107; Pulse 168; Resp 27; Temp 97.9; Pulse Ox 94% on R/A; Weight 102.06 kg; jl7 Height 5 ft. 8 in. (172.72 cm); Pain 6/10; 09:04 BP 129 / 82; Pulse 108; Resp 22; Pulse Ox 96% ; jh5 08:18 Body Mass Index 34.21 (102.06 kg, 172.72 cm) jl7 MDM: 08:36 Patient medically screened. kdr 08:36 Data reviewed: vital signs, nurses notes. Counseling: I had a detailed discussion with kdr the patient and/or guardian regarding: the historical points, exam findings, and any diagnostic results supporting the discharge/admit diagnosis, lab results, radiology results, the need for further work-up and treatment in the hospital. 12/03 08:25 Order name: SARS RAPID; Complete Time: 09:05 ap3 12/03 08:26 Order name: Basic Metabolic Panel; Complete Time: 09:45 [facility] 12/03 08:26 Order name: CBC with Diff; Complete Time: 09:05 [facility] 12/03 08:26 Order name: NT PRO-BNP; Complete Time: 09:45 [facility] 12/03 08:26 Order name: PT-INR; Complete Time: 09:05 [facility] 12/03 08:26 Order name: Troponin HS; Complete Time: 09:45 [facility] 12/03 08:38 Order name: Lactate; Complete Time: 09:45 [facility] 12/03 10:32 Order name: Lipid Profile [facility] 12/03 10:32 Order name: T4 Free [facility] 12/03 10:33 Order name: Thyroid Stimulating Hormone [facility] 12/03 10:33 Order name: Basic Metabolic Panel [facility] 12/03 10:33 Order name: Basic Metabolic Panel [facility] 12/03 10:33 Order name: CBC with Automated Diff [facility] 12/03 10:33 Order name: CBC with Automated Diff [facility] 12/03 08:26 Order name: XRAY Chest (1 view); Complete Time: 09:45 [facility] 12/03 08:26 Order name: EKG; Complete Time: 08:27 kdr 12/03 08:26 Order name: Cardiac monitoring; Complete Time: 08:33 kdr 12/03 08:26 Order name: EKG - Nurse/Tech; Complete Time: 08:27 kdr 12/03 08:26 Order name: IV Saline Lock; Complete Time: 08:27 kdr 12/03 08:26 Order name: Labs collected and sent; Complete Time: 08:33 kdr 12/03 10:32 Order name: Heart Healthy [facility] 12/03 10:33 Order name: NT PRO-BNP [facility] 12/03 10:33 Order name: NT PRO-BNP [facility] 12/03 10:50 Order name: Echo with Doppler [facility] 12/03 10:50 Order name: Hemoglobin A1c [facility] 12/03 08:26 Order name: O2 Per Protocol; Complete Time: 08:27 kdr 12/03 08:26 Order name: O2 Sat Monitoring; Complete Time: 08: kdr EC:30 Rate is 172 beats/min. Rhythm is regular, A fib with No ectopy. QRS Ethel is Normal. OR kdr interval is normal. QRS interval is normal. QT interval is normal. Clinical impression: Atrial Fibrillation and With rapid ventricular response, no indication for ischemia at this time. 09:05 Rate is 120 beats/min. Rhythm is irregularly irregular, A fib with No ectopy. QRS Ethel kdr is Normal. OR interval is normal. QRS interval is normal. QT interval is normal. Clinical impression: Atrial Fibrillation. Administered Medications: 09:02 Drug: Lopressor (metoprolol) 5 mg Route: IVP; Site: right antecubital; [facility] 09:02 Drug: Lopressor (metoprolol) 5 mg {Note: first dose 0850. second dose 0855. third dose jh5 0900.} Route: IVP; Site: right antecubital; 09:04 Drug: Lopressor (metoprolol) 5 mg Route: IVP; Site: right antecubital; 5 09:20 Drug: NS 0.9% 500 ml Route: IV; Rate: bolus; Site: right antecubital; 5 09:21 Drug: Lovenox (enoxaparin) 1 mg/kg Route: Sub-Q; Site: abdomen; 5 09:21 Drug: Ancef (cefazolin) 1 grams Route: IVPB; Site: right antecubital; 5 09:29 Drug: NS 0.9% 1000 ml Route: IV; Rate: 75 ml/hr; Site: right antecubital; [facility] Disposition Summary: 12/03/21 08:36 Hospitalization Ordered Hospitalization Status: Inpatient Admission kdr Provider: Jefferson Godfrey Condition: Fair kdr Problem: an acute exacerbation kdr Symptoms: have improved kdr Bed/Room Type: Standard kdr Location: Telemetry/MedSurg (Inpatient)(12/03/21 18:58) Room Assignment: 412(12/03/21 18:58) dw Diagnosis - Paroxysmal atrial fibrillation kdr - Persistent atrial fibrillation kdr - Heart failure, unspecified kdr - Edema, unspecified kdr Discharge Instructions: - Discharge Summary Sheet [facility] Forms: - Medication Reconciliation Form kdr - SBAR form kdr Signatures: Dispatcher [employer] Miriam Caceres RN RN dw Rittger, Kevin, MD MD kdr Leal, Jahala, RN RN jl7 Berenice Gillis RN RN jh5 Corrections: (The following items were deleted from the chart) 15:00 08:36 Telemetry/MedSurg (Inpatient) kdr jl7 15:00 08:36 kdr jl7 18:58 15:00 [facility] ER HOLD jl7 dw 18:58 15:00 ERHOLD- jl7 dw
[2021-12-03] MEDS ORDERED: METOPROLOL TARTRATE 5 MG/5 ML INJ IV ONE ×2 (08:41→08:50)
[2021-12-03 08:50] LABS: Absolute Lymphocytes (CBC) 1.6 K/uL (0.7-4.9); Hematocrit 48.2 % (39.6-49.0); MPV 8.3 fL (7.6-11.3); RBC Red Blood Cell Count 5.42 M/uL (4.33-5.43)
[2021-12-03 08:53] LABS: Protime INR 1.34
[2021-12-03] MEDS: ASPIRIN EC 81 MG TAB PO SCH (09:00)
[2021-12-03 09:03] LABS: SARS-CoV-2 Antigen Rapid Res Negative (Negative)
[2021-12-03 09:11] LABS: Troponin High Sensitivity 37.3 pg/mL (<58.9)
[2021-12-03] MEDS ORDERED: CEFAZOLIN SODIUM 1 GM/VIAL ONE (09:22)
[2021-12-03] MEDS ORDERED: ENOXAPARIN 100 MG/ML SYR SQ ONE (09:22)
[2021-12-03] MEDS ORDERED: NA CHLORIDE 0.9% 1,000 ML ONE (09:22)
[2021-12-03] MEDS ORDERED: NA CHLORIDE 0.9% 100 ML ONE (09:23)
[2021-12-03] MEDS ORDERED: NA CHLORIDE 0.9% 500 ML ONE (09:23)
--- NOTE | 2021-12-03 09:26 | RAD REPORT ---
EXAM DESCRIPTION: RAD - Chest Single View - 12/03/2021 9:14 am CLINICAL HISTORY: A-fib COMPARISON: Portable 09/29/2018 TECHNIQUE: AP portable chest image was obtained 12/03/2021 9:14 am . FINDINGS: No focal mass or consolidation. Interstitial markings are increased over comparison. Heart size and central vasculature are also increased over prior imaging. Single lead left subclavian pace maker remains in place. No measurable pleural effusion and no pneumothorax. No acute bony abnormality seen. No acute aortic findings suspected. IMPRESSION: Mild CHF/volume overload pattern.
[2021-12-03] MEDS ORDERED: ACETAMINOPHEN 500 MG TAB PO PRN (10:26)
[2021-12-03] MEDS ORDERED: ONDANSETRON 4 MG/2 ML VIAL IV PRN (10:26)
[2021-12-03] MEDS ORDERED: HYDROCODONE/APAP 5/325 MG TAB PO PRN (10:26)
--- NOTE | 2021-12-03 10:54 | P.HP ---
Certification for Inpatient With expected LOS: >2 Midnights Patient will require the following post-hospital care: None Practitioner: I am a practitioner with admitting privileges, knowledge of patient current condition, hospital course, and medical plan of care. Services: Services provided to patient in accordance with Admission requirements found in Title 42 Section 412.3 of the Code of Federal Regulations <MelanahidTate peraltatwyla Peralta - Last Filed: 12/03/21 18:36> Patient History Date of Service: 12/03/21 Reason for admission: SOB History of Present Illness: Patient is a 56-year-old male with a past medical history significant for hypertension, hep C, atrial fibrillation, hyperlipidemia, CHF, defibrillator presence who presents with complaint of shortness of breath that has been ongoing for the past 1 week. Patient reported associated signs and symptoms of palpitations, chest tightness, cough, diaphoresis and generalized swelling. Patient reported that he has noncompliant with his Eliquis and reported that he was recently taken off his blood pressure medicine. Patient denies any other signs or symptoms. Symptoms are aggravated by exertion and relieved by nothing. Patient decided to present to the hospital due to worsening symptoms. - Past Medical/Surgical History Diabetic: No -: chf -: A-fibb 2006 -: pleural effusion -: clot "went away""atrium in heart attached to the lead of my device" -: Hep C -: HTN -: ICP left chest wall -: umbilical hernia - Family History Mother -: Heart disease, Cancer Father -: Cancer Sister -: Heart disease - Social History Smoking Status: Current every day smoker Counseled patient to stop smoking for: less than 10 minutes Smoking therapy provided: Yes Patient receptive to therapy: Yes Alcohol use: Yes CD- Drugs: Yes Caffeine use: Yes Place of Residence: Home <Lala Coronado - Last Filed: 12/03/21 18:36> Date of Service: 12/03/21 <Jefferson Godfrey - Last Filed: 12/04/21 13:04> Allergies codeine Adverse Reaction (Intermediate, Verified 08/20/17 16:14) Hives/Rash Home Medications: Apixaban [Eliquis *] 5 mg PO BID 08/20/17 Metoprolol Tartrate [Lopressor*] 100 mg PO BID #60 tab 09/23/17 Review of Systems General: Unremarkable Eyes: Unremarkable ENT: Unremarkable Respiratory: Cough, Shortness of Breath Cardiovascular: Palpitations, Orthopnea Gastrointestinal: Unremarkable Genitourinary: Unremarkable Musculoskeletal: Pedal edema, Other (Generalized swelling) Integumentary: Unremarkable Neurological: Unremarkable <Lala Coronado E - Last Filed: 12/03/21 18:36> Physical Examination - Physical Exam General: Alert, Oriented x3 HEENT: Atraumatic, Normocephalic Neck: Supple, 2+ carotid pulse no bruit, JVD not distended Respiratory: Normal air movement, Diminished Cardiovascular: Regular rate/rhythm, Normal S1 S2 Capillary refill: <2 Seconds Gastrointestinal: Normal bowel sounds Musculoskeletal: No clubbing, No contractures, No erythema Integumentary: No rashes, No breakdown, No significant lesion Neurological: Normal speech, Normal tone, Sensation intact Lymphatics: No axilla or inguinal lymphadenopathy - Studies Laboratory Data (last 24 hrs) 12/03/21 08:29: PT 14.8 H, INR 1.34 12/03/21 08:29: WBC 9.20, Hgb 15.9, Hct 48.2, Plt Count 192 12/03/21 08:29: Sodium 137, Potassium 4.0, BUN 7, Creatinine 0.84, Glucose 125 H <Lala Coronado E - Last Filed: 12/03/21 18:36> Assessment and Plan - Plan --A. fib with RVR. Patient given metoprolol IV in the ER. Echocardiogram pending. Cardiology consulted. Continue Eliquis. Further management per international relations professor. --Acute on chronic diastolic or systolic CHF exacerbation. Echocardiogram pending. Continue diuresis with Lasix. Daily weight and strict I/O. --Hypertension. Poorly controlled. Continue home medications and labetalol as needed. --HLD. Continue statin. --Defibrillator presence. Telemetry to monitor for any malignant arrhythmia. Continue supportive care. --History of hepatitis C. Status unknown. Continue supportive care. --Nicotine dependence. Patient counseled on tobacco cessation. Refused nicotine patch. --DVT prophylaxis with Eliquis. - Advance Directives Does patient have a Living Will: Yes Does patient have a Durable POA for Healthcare: No - Code Status/Comfort Care Code Status Assessed: Yes Code Status: Full Code Physician Review: Patient Assessed, Agree with Above Assessment and Plan Critical Care: No <Lala Coronado E - Last Filed: 12/03/21 18:36>
[2021-12-03 12:46] LABS: Thyroid Stimulating Hormone 1.03 uIU/mL (0.360-3.740)
[2021-12-03] MEDS: ALBUTEROL 2.5 MG/3 ML NEB SOL NEB SCH ×2 (13:55→19:51)
[2021-12-03] MEDS: IPRATROPIUM BROM 0.5MG/2.5ML NEB SCH ×2 (13:55→19:51)
[2021-12-03] MEDS ORDERED: IPRATROPIUM BROM 0.5MG/2.5ML ONE ×2 (14:02→19:58)
[2021-12-03] MEDS ORDERED: ALBUTEROL 2.5 MG/3 ML NEB SOL ONE ×2 (14:02→19:58)
[2021-12-03] MEDS: FUROSEMIDE 40 MG/4 ML VIAL IV SCH (17:00)
[2021-12-03] MEDS ORDERED: FUROSEMIDE 20 MG/ 2ML VIAL ONE (18:26)
[2021-12-03] MEDS ORDERED: LABETALOL 20 MG/4ML SYRINGE IV PRN (18:28)
[2021-12-03] MEDS ORDERED: DILTIAZEM HCL 125 MG/25 ML VIAL IVP ONE (19:53)
[2021-12-03] MEDS ORDERED: dilTIAZem HCL 25 MG/5 ML VIAL IV ONE (20:05)
[2021-12-03 21:49] VITALS: BMI 35.1
[2021-12-03] MEDS: MELATONIN 5 MG TABLET PO PRN (22:01)
[2021-12-03] MEDS: METOPROLOL TAR 50 MG TAB PO SCH (22:01)
[2021-12-03] MEDS: ATORVASTATIN 40 MG TAB PO SCH (22:02)
[2021-12-03] MEDS: APIXABAN 5 MG TABLET PO SCH (22:02)
[2021-12-04] MEDS: IPRATROPIUM BROM 0.5MG/2.5ML NEB SCH ×4 (02:55→19:28)
[2021-12-04] MEDS: ALBUTEROL 2.5 MG/3 ML NEB SOL NEB SCH ×4 (02:55→19:28)
[2021-12-04 03:45] LABS: Absolute Lymphocytes (CBC) 1.8 K/uL (0.7-4.9); Hematocrit 43.3 % (39.6-49.0); MCV 89.5 fL (80-100); MPV 8.6 fL (7.6-11.3); RBC Red Blood Cell Count 4.84 M/uL (4.33-5.43)
[2021-12-04 04:00] LABS: Potassium 3.7 mmol/L (3.5-5.1)
[2021-12-04] MEDS ORDERED: POTASSIUM CL SA 10 MEQ TAB PO ONE (04:45)
[2021-12-04 04:52] LABS: Phosphorus 2.6 mg/dL (2.5-4.9)
--- NOTE | 2021-12-04 07:35 | ECHO ---
HEIGHT: 5 ft 8 in WEIGHT: 225 lb 0 oz DATE OF STUDY: 12/03/[address]: Lala Coronado 2-DIMENSIONAL: YES M.MODE: YES DOPPLER: YES COLOR FLOW: YES TDS: NO PORTABLE: NO DEFINITY: NO BUBBLE STUDY: NO DIAGNOSIS: ATRIAL FIBRILLATION CARDIAC HISTORY: CATHERIZATION: NO SURGERY: NO PROSTHETIC VALVE: NO PACEMAKER: YES MEASUREMENTS (cm) DIASTOLIC (NORMALS) SYSTOLIC (NORMALS) IVSd 1.2 (0.6-1.2) LA Diam 4.9 (1.9-4.0) LVEF 25-30% LVIDd 5.2 (3.5-5.7) LVIDs 4.8 (2.0-3.5) %FS 9% LVPWd 1.3 (0.6-1.2) Ao Diam 3.1 (2.0-3.7) 2 DIMENSIONAL ASSESSMENT: RIGHT ATRIUM: NORMAL LEFT ATRIUM: ENLARGED RIGHT VENTRICLE: PACEMAKER WIRE LEFT VENTRICLE: SEVERELY DEPRESSED TRICUSPID VALVE: MITRAL VALVE: PULMONIC VALVE: NORMAL AORTIC VALVE: NORMAL PERICARDIAL EFFUSION: NONE AORTIC ROOT: NORMAL LEFT VENTRICULAR WALL MOTION: SEVERE GLOBAL HYPOKINESIS. DOPPLER/COLOR FLOW: SEE BELOW. COMMENTS: SEVERELY DEPRESSED LEFT VENTRICULAR EJECTION FRACTION 25-30%. SEVERE GLOBAL HYPOKINESIS. ATRIAL FIBRILLATION. SEVERE MITRAL REGURGITATION. MODERATE TRICUSPID REGURGITATION. LEFT ATRIAL ENLARGEMENT. TECHNOLOGIST: Alexandria ANSARI
[2021-12-04] MEDS ORDERED: LOSARTAN POTASSIUM 50 MG TABLET PO SCH (09:00)
[2021-12-04] MEDS: METOPROLOL TAR 50 MG TAB PO SCH ×2 (09:11→21:03)
[2021-12-04] MEDS: ASPIRIN EC 81 MG TAB PO SCH (09:11)
[2021-12-04] MEDS: APIXABAN 5 MG TABLET PO SCH ×2 (09:11→21:04)
[2021-12-04] MEDS: FUROSEMIDE 40 MG/4 ML VIAL IV SCH ×2 (09:12→17:48)
--- NOTE | 2021-12-04 11:08 | CON ---
Date of Consultation: 12/04/2021 Reason For Consultation: Atrial fibrillation. History Of Present Illness: Mr. Burns is 56. He has multiple medical problems. Unfortunately, he has congestive heart failure, ejection fraction 25%. Has had a defibrillator, has had paroxysmal at rial fibrillation, congestive heart failure, hypertension, comes in with rapid atrial fibrillation. Has had 2 cardioversions in the past. Has failed other medical therapy including amiodarone. He see s CHF Team at [facility] and he sees Dr. Lopez. His atrial fibrillation rate has been controlled now. His c hest x-ray shows CHF. He is being diuresed. Past Medical History: As stated above. Allergies: INCLUDE CODEINE. Review of Systems: Negative. Social History: Negative. Family History: Negative. Medications: Include metoprolol, Eliquis, inhalers, Lasix, diltiazem, Lipitor, Eliquis. Physical Examination: Vital Signs: Stable, afebrile, atrial fibrillation at a rate of 90. HEENT: Negative. Neck: Supple with no bruit. Chest: Rales both bases. Cardiac: Revealed atrial fibrillation. Abdomen: Benign. Extremities: Revealed no clubbing, cyanosis, or edema. Diagnostic Data: Showed a BNP of 2900. Chest x-ray shows CHF. Recent echo showed ejection fraction 25%. Impression And Plan: Paroxysmal atrial fibrillation, poor rate control. Had failed cardioversion, h ad failed amiodarone, had failed metoprolol in the past. I think we need to add digoxin to his regim en considering and consider amiodarone 400 b.i.d. p.o. for a week and then 200 mg daily mostly for ra te control. Apparently, he has seen an medical technologist chemistry and he was told he is not a candidate for ablation. There was a consideration of heart transplantation, but this did not go through. As far as his congestive heart failure is concerned, he is not a candidate for Entresto, JOSE inhibitor or AR B because of his kidney failure and because he could not afford the Entresto. He is on inhalers. He is on Lasix. He is on metoprolol. I think again we need to add digoxin to his regimen. He has a d efibrillator, but no recent shocks. His dyslipidemia and high blood pressure are well controlled. A gain, I think we need to add digoxin, add Aldactone, consider amiodarone, follow up with [facility] Cardiol ogy in the near future. HEIDI/MICHAEL Voice ID: [id number] Report ID: [id number]
[2021-12-04] MEDS ORDERED: AMIODARONE HCL 200 MG TAB PO ONE (13:03)
--- NOTE | 2021-12-04 13:06 | P.PN ---
Subjective Date of Service: 12/04/21 Subjective: No new changes, No C/O voiced, Improving Patient has not been staying in his room. Heart rate has been elevated. Cardiology recommended amiodarone 400 mg p.o. twice a day. Also starting on digoxin. Continue with metoprolol. Monitor heart rate closely. Decrease losar sheehan to 25 mg and monitor blood pressure closely. Patient follows up in [place] for his cardiology visits. Review of Systems 10-point ROS is otherwise unremarkable Physical Examination - Vital Signs Temperature: 97.0 F Blood Pressure: 160/100 Pulse: 130 Respirations: 30 Pulse Ox (%): 95 - Physical Exam General: Alert, In no apparent distress, Oriented x3 HEENT: Atraumatic, PERRLA, EOMI Neck: Supple, JVD not distended Respiratory: Clear to auscultation bilaterally, Normal air movement Cardiovascular: Irregular heart rate/rhythm, Systolic murmur Gastrointestinal: Normal bowel sounds, Soft and benign, Non-distended, No tenderness Musculoskeletal: No clubbing, No swelling, No tenderness Neurological: Sensation intact, Cranial nerves 3-12 intact - Studies Medications List Reviewed: Yes Assessment & Plan - Problems (Diagnosis) (1) Acute on chronic systolic (congestive) heart failure Onset Date: 11/19/17 Current Visit: No Status: Acute (2) Atrial fibrillation with RVR Onset Date: 11/19/17 Current Visit: No Status: Acute (3) Noncompliance Current Visit: No Status: Acute (4) Smoking 1/2 pack a day or less Onset Date: 11/19/17 Current Visit: No Status: Acute (5) Alcohol abuse Onset Date: 11/19/17 Current Visit: No Status: Chronic (6) Chronic anticoagulation Current Visit: No Status: Chronic (7) Hyperlipidemia Current Visit: No Status: Chronic (8) Hypertension Onset Date: 09/23/17 Current Visit: No Status: Chronic Qualifiers: Hypertension type: essential hypertension (9) Nonischemic dilated cardiomyopathy Current Visit: No Status: Chronic (10) Tobacco abuse Current Visit: No Status: Chronic - Plan PLAN: 1. Echocardiogram 2. Rate-control with amiodarone and digoxin. 3. Continue with Beta musa 4. Cardiology consultation appreciated; follow-up with [facility] Cardiology 5. Aggressive diuresis 6. Strict I's and O's 7. Repeat CXR 8. Daily weights 9. Education regarding diet and treatment of congestive heart failure Discharge Plan: Home Plan to discharge in: Greater than 2 days - Advance Directives Does patient have a Living Will: Yes Does patient have a Durable POA for Healthcare: No - Code Status/Comfort Care Code Status: Full Code Physician Review: Patient Assessed, Agree with Above Assessment and Plan Critical Care: No Time Spent Managing PTS Care (In Minutes): 25
--- NOTE | 2021-12-04 15:14 | EKG ---
Test Date: 2021-12-03 Test Time: 08:13:36 Studio Musician: JOSE MEASUREMENT RESULTS: Intervals: Rate: 172 [place]: QRSD: 88 QT: 288 QTc: 487 [place]: P: MA: QRS: -1 T: 55 INTERPRETIVE STATEMENTS: Atrial fibrillation with rapid ventricular response Nonspecific ST abnormality Abnormal ECG Compared to ECG 09/29/2018 13:11:28 ST (T wave) deviation now present Ventricular premature complex(es) no longer present Electronically Signed On 12-04-21 15:12:57 CDT by Mic Brasher
--- NOTE | 2021-12-04 15:14 | EKG ---
Test Date: 2021-12-03 Test Time: 08:58:04 [employer] Fabricator: JOSE MEASUREMENT RESULTS: Intervals: Rate: 120 [place]: QRSD: 90 QT: 370 QTc: 522 [place]: P: [place]: QRS: -9 T: 54 INTERPRETIVE STATEMENTS: Atrial fibrillation with rapid ventricular response Prolonged QT Abnormal ECG Compared to ECG 12/03/2021 08:13:36 Prolonged QT interval now present ST (T wave) deviation no longer present Electronically Signed On 12-04-21 15:12:54 CDT by Mic Brasher
[2021-12-04] MEDS: MELATONIN 5 MG TABLET PO PRN (21:04)
[2021-12-04] MEDS: ATORVASTATIN 40 MG TAB PO SCH (21:04)
[2021-12-05] MEDS: IPRATROPIUM BROM 0.5MG/2.5ML NEB SCH ×2 (02:15→09:09)
[2021-12-05] MEDS: ALBUTEROL 2.5 MG/3 ML NEB SOL NEB SCH ×2 (02:15→09:09)
[2021-12-05] MEDS: AMIODARONE HCL 200 MG TAB PO SCH ×2 (05:37→09:08)
[2021-12-05] MEDS ORDERED: METOPROLOL TAR 25 MG TAB PO SCH (09:00)
[2021-12-05] MEDS ORDERED: DIGOXIN 0.25 MG TABLET PO SCH (09:00)
[2021-12-05] MEDS ORDERED: LOSARTAN POTASSIUM 50 MG TABLET PO SCH (09:00)
[2021-12-05] MEDS: ASPIRIN EC 81 MG TAB PO SCH (09:07)
[2021-12-05] MEDS: APIXABAN 5 MG TABLET PO SCH (09:07)
[2021-12-05] MEDS: FUROSEMIDE 40 MG/4 ML VIAL IV SCH (09:08)
[2021-12-05] MEDS ORDERED: DULERA 200/5 (MOMETASONE/FORMOTEROL) INHALER IH SCH (10:46)
[2021-12-05] MEDS ORDERED: SPIRONOLACTONE 25 MG TABLET PO SCH (10:47)
--- NOTE | 2021-12-05 10:54 | P.PN ---
Subjective Date of Service: 12/05/21 Chief Complaint: cardiomyopathy and atrial fibrillation Subjective: Improving (Patient is improving rate reasonably controlled/patient is constantly going out to smoke actively wheezing) Review of Systems Respiratory: Cough, SOB with Excertion Physical Examination - Vital Signs Temperature: 97.3 F Blood Pressure: 122/79 Pulse: 120 Respirations: 18 Pulse Ox (%): 95 - Physical Exam General: Alert, In no apparent distress, Oriented x3 Respiratory: Expiratory wheezes Cardiovascular: No edema, Regular rate/rhythm, Irregular heart rate/rhythm - Studies Medications List Reviewed: Yes Assessment And Plan - Current Problems (Diagnosis) (1) Atrial fibrillation with RVR Onset Date: 11/19/17 Current Visit: No Status: Acute Plan: Chronic A. fib patient is hemodynamically stable on amiodarone plan to discharge anticoagulation amiodarone and beta-musa medication list reviewed with the patient (2) Cardiomyopathy Current Visit: Yes Status: Acute Plan: Continue with diuretics and spironolactone Qualifiers: Cardiomyopathy type: unspecified Qualified Code(s): I42.9 - Cardiomyopathy, unspecified Physician Review: Patient Assessed, Agree with Above Assessment and Plan
[2021-12-05 11:11] VITALS: O2SAT 97
[2021-12-05 12:10] VITALS: BP 122/79; TEMP 97.3
--- NOTE | 2021-12-05 12:11 | P.DS ---
Admission Date: 12/03/21 Discharge Date: 12/05/21 Disposition: ROUTINE DISCHARGE Discharge Condition: FAIR Reason for Admission: cardiomyopathy and atrial fibrillation - Problems (1) Atrial fibrillation with RVR Onset Date: 11/19/17 Current Visit: No Status: Acute (2) Cardiomyopathy Current Visit: Yes Status: Acute Qualifiers: Cardiomyopathy type: unspecified Qualified Code(s): I42.9 - Cardiomyopathy, unspecified Brief History of Present Illness: Patient is 56 years of age with a history of cardiomyopathy admitted with rapid ALiliam anaya Hospital Course: Patient was started on amiodarone for rate control is noncompliant and he is to resume all his home medications including spironolactone beta-musa and low- dose JOSE inhibitor gentleman frequently down to smoke he was also wheezing he has presumed COPD discharged home on a bronchodilator progress note from today labs reviewed Vital Signs/Physical Exam: Temp Pulse Resp BP Pulse Ox 97.3 F 120 H 18 122/79 95 12/05/21 12:10 12/05/21 12:10 12/05/21 12:10 12/05/21 12:10 12/05/21 12:10 Laboratory Data at Discharge: WBC 6.80 K/uL (4.3-10.9) D 12/04/21 03:01 Hgb 14.3 g/dL (13.6-17.9) 12/04/21 03:01 Hct 43.3 % (39.6-49.0) 12/04/21 03:01 Plt Count 168 K/uL (152-406) 12/04/21 03:01 PT 14.8 SECONDS (9.5-12.5) H 12/03/21 08:29 INR 1.34 12/03/21 08:29 Sodium 137 mmol/L (136-145) 12/04/21 03:01 Potassium 3.7 mmol/L (3.5-5.1) 12/04/21 03:01 BUN 14 mg/dL (7-18) 12/04/21 03:01 Creatinine 0.85 mg/dL (0.55-1.3) 12/04/21 03:01 Glucose 107 mg/dL (74-106) H 12/04/21 03:01 Phosphorus 2.6 mg/dL (2.5-4.9) 12/04/21 03:01 Magnesium 2.0 mg/dL (1.8-2.4) 12/04/21 03:01 Triglycerides 58 mg/dL (<150) 12/03/21 11:50 Cholesterol 121 mg/dL (<200) 12/03/21 11:50 HDL Cholesterol 51 mg/dL (40-60) 12/03/21 11:50 Cholesterol/HDL Ratio 2.37 12/03/21 11:50 Home Medications: Apixaban [Eliquis *] 5 mg PO BID 08/20/17 Metoprolol Tartrate [Lopressor*] 100 mg PO BID #60 tab 09/23/17 Amiodarone HCl [Cordarone*] 400 mg PO BID #52 tab 12/05/21 Digoxin [Lanoxin*] 0.25 mg PO DAILY #30 tab 12/05/21 Furosemide [Lasix*] 40 mg PO DAILY #30 tab 12/05/21 Losartan Potassium [Cozaar*] 25 mg PO DAILY #30 12/05/21 Mometasone/Formoterol [Dulera 200 Mcg/5 Mcg Inhaler] 2 puff IH BID #1 inhaler 12/05/21 Spironolactone [Aldactone*] 25 mg PO BID #60 tab 12/05/21 New Medications: Spironolactone [Aldactone*] 25 mg PO BID #60 tab Amiodarone HCl [Cordarone*] 400 mg PO BID #52 tab Losartan Potassium [Cozaar*] 25 mg PO DAILY #30 Mometasone/Formoterol [Dulera 200 Mcg/5 Mcg Inhaler] 2 puff IH BID #1 inhaler Digoxin [Lanoxin*] 0.25 mg PO DAILY #30 tab Furosemide [Lasix*] 40 mg PO DAILY #30 tab Physician Discharge Instructions: F/u with Sales Analytics Manager 1-2 wks Diet: Low sodium Activity: Ad ashlee Followup: NONE,NONE [Primary Care Provider] -
[2021-12-05] MEDS ORDERED: FUROSEMIDE 40 MG TABLET PO SCH (17:00)
== END 2021-12-05 12:20 | disposition home or self-care (01) | DRG 308 ==
LOC: ER 08:10 → ERHOLD 10:22 → 4TH 20:56
PROVIDERS: ADMIT Hospitalist; ATTEND Hospitalist
DX: I48.0 Paroxysmal atrial fibrillation (principal); I50.23 Acute on chronic systolic (congestive) heart failure; I11.0 Hypertensive heart disease with heart failure; E78.5 Hyperlipidemia, unspecified; J44.9 Chronic obstructive pulmonary disease, unspecified; Z91.14 Patient's other noncompliance with medication regimen; Z86.19 Personal history of other infectious and parasitic diseases; Z95.810 Presence of automatic (implantable) cardiac defibrillator; F17.210 Nicotine dependence, cigarettes, uncomplicated; Z20.822 Contact with and (suspected) exposure to COVID-19
CPT/HCPCS: 36415; 71045; 80048; 80061; 83036; 83605; 83735; 83880; 84100; 84439; 84443; 84484; 85025; 85610; 87811; 93005; 93306; 94640; 94760; 96372; 96374; 96375; 99284; J0690; J1650; J1940; J3535; J7030; J7040

== ENCOUNTER 2022-03-07 16:09 | Inpatient (IN) | payer OTHER, SELFPAY ==
--- OUTSIDE RECORDS SUMMARY | 2022-03-07 16:13 | XMS REPORT | Continuity of Care Document ---
:1965 Author Organization [facility] t Address [address] [place] [address] Care Team Providers Name Role Phone PCP, PATIENT DOES NOT HAVE A Primary Care Physician Unavaila BELINDA Gill Attending Clinician Unavailable Ginger PEREZ, Belinda Attending Clinician Doctor Unassigned, [place] Attending Clinician Unavailable Clinic, T[facility] Gi Liver Attending Clinician Unavailable Ehsan Roach MD Attending Clinician Cardiology, Tdc Attending Clinician Unavailable Delonte Weber Attending Clinician [phone] Clare PEREZ, Rock Attending Clinician Melba Walker Attending Clinician Cardiology, Tdc Ep Attending Clinician Unavailable Ahmet Dominguez MD Attending Clinician Caleb Oliva DDS Attending Clinician Surgery, [facility] Oral Attending Clinician Unavailable Adam Catherine MD Attending Clinician Dermatology, Tdc Attending Clinician Unavailable Anthony Garcia MD Attending Clinician Rafiq Dunlap Attending Clinician Unavailable Annamarie Steele MD Attending Clinician Jaime PEREZ, Girish Saavedra Attending Clinician [phone] Rikki Casey MD Attending Clinician Gabriel Riley Attending Clinician Unavailable Ulises Lees Attending Clinician Unavailable Clare PEREZ, Rock Admitting Clinician Caleb Oliva DDS Admitting Clinician Adam Catherine MD Admitting Clinician Anthony Garcia MD Admitting Clinician Carmela PEREZ, Rikki Admitting Clinician Payers Payer Name Policy Type Policy Number [...] 4-04 ity of 30-39.9) 30-39.9) 00:00: [place] [facility] Atrial Atrial Disease Active Univers thrombus thrombus 5-23 ity of 00:00: [place] 00 [facility] Warfarin-i Warfarin-i Disease Active U nivers nduced nduced 1-31 ity of coagulopat [place]agulopat [place] [facility] [place] Atrial Atrial Disease Active Univers fibrillati fibrillati 8-16 it y of on on 00:00: Medical Branch Essential Essential Disease Active Overview: Univers hypertensi hypertensi 8-16 Formattin ity of on on 00:00: g of this note Medical might be Branch different from the original. ICD10 Diagnosis Term Roll Trucker Utility Cardiomyop Cardiomyop Disease Active U nivers athy athy 6-16 ity of 00:00: Medical Branch Transient Transient Disease Active Overview: Univers cerebral cerebral 4-01 Formattin ity of ischemia ischemia 00:00: g of this [place] as 00 note Medical might be Branch different from the original. ICD10 Diagnosis Term Roll Trucker Utility Allergies, Adverse Reactions, Alerts Allergy Allergy Status Severity Reaction(s) Onset Inactive Treating Comm ents Source Name Type Date Date Clinician Codeine Propensi Active Swelling 2020-04 Unive rs ty to 112 ity of adverse 00:00: [place] reaction 00 Medical s Branch CODEINE DRUG Active Swelling 2020-04 Univers INGREDI 1-12 ity of 00:00: 00 Medical [place] Social History Social Habit Start Date Stop Date Quantity Comments Source History [facility] o f Alcohol Std Drinks [facility] History [facility] o f Alcohol Binge [facility] History of tobacco Cigarette Smoker University of use [facility] History [facility] University o f Alcohol Frequency [facility] Exposure to 2021-09-30 2021-10-10 Not sure University of SARS-CoV-2 (event) 00:00:00 08:46:00 [facility] Alcohol intake 2021-07-04 2021-07-04 1.71 /d University of 00:00:00 00:00:00 [facility] Cigarettes smoked 2018-09-19 2018-09-19 Univers ity of current (pack per 00:00:00 00:00:00 [facility] ) - Reported Branch Cigarette 2018-09-19 2018-09-19 University of pack-years 00:00:00 00:00:00 [facility] Tobacco use and 2018-09-19 2018-09-19 Never used Universit y of exposure 00:00:00 00:00:00 [facility] Alcohol Comment 2013-06-24 2013-06-24 18-24 beers/day Univ ersity of 00:00:00 00:00:00 for 20-25 years [facility] Tobacco Comment 2013-06-24 2013-06-24 Started smoking Univ ersity of 00:00:00 00:00:00 when he was [age] [facility] dical years old. Branch Sex Assigned At [birth year] Universit y of 00:00:00 00:00:00 [facility] Smoking Status Start Date Stop Date Source Former smoker 2018-09-19 00:00:00 2018-09-19 00:00:00 [facility] Medications Ordered Filled Start Stop Current Ordering Indication Dosage Frequency Signature Comments Components Source Medication Medication Date Date Medication? Clinician (SIG) Name Name metoprolol 0 2021- No 50mg Take 50 mg Univers succinate 10-10 by mouth 2 ity of XL 50 mg 24 09:33: 00:00 (two[place] tablet 14 :00 times Medical daily. Branch warfarin 2021- No 2.5mg Take 2.5 Uni vers 2.5 mg 10-10 mg by ity of tablet 09:31: 00:00 mouth. 3 [place] 57 :00 tabs oral Medical every Branch evening metoprolol 0 Yes [id number] 50mg Take 1 Univers succinate - tablet by ity o f XL 50 mg 24 00:00: mouth 2 [place] hr tablet 00 (two) Medical times Branch daily. apixaban 5 0 Yes [id number] 5mg Take 1 Unive rs mg tablet 10-10 tablet by ity o f 00:00: mouth 2 [place] 00 (two) Medical times Branch daily. Indication s: atrial fibrillati on Immunizations Ordered Filled Immunization Date Status Comments Sourc e Immunization Name Name SARS-COV-2 COVID-19 2020-09-03 Completed Unive rsity of MODERNA VACCINE 00:00:00 [facility] SARS-COV-2 COVID-19 2020-07-29 Completed Unive rsity of MODERNA VACCINE 00:00:00 [facility] Influenza Virus 2020-01-13 Completed Universit y of Vaccine Quad ID 00:00:00 [facility] ical 18-64 YRS Branch Influenza Virus 2018-01-22 Completed Universit y of Vaccine Quad .5 mL 00:00:00 [facility] 6+ MO Branch Pneumococcal 2013-06-28 Completed University o f Polysaccharide, 00:00:00 [facility] PPSV23 (PNEUMOVAX) Branch Influenza Virus 2013-04-19 Completed Universit y of Vaccine - Whole 00:00:00 [facility] Branch Influenza Virus 2010-05-12 Completed Universit y of Vaccine 00:00:00 [facility] Vital Signs Vital Name Observation Time Observation Value Comments Source Systolic blood 2021-10-10 14:10:00 149 mm[Hg] Univer sity of pressure [facility] Diastolic blood 2021-10-10 14:10:00 94 mm[Hg] Unive [facility] Heart rate 2021-10-10 14:10:00 93 /min [facility] Oxygen saturation in 2021-10-10 14:10:00 98 /min [facility] Arterial blood by [facility] Pulse oximetry [place] Body temperature 2021-10-10 14:07:00 36.83 Pa[place] [facility] Respiratory rate 2021-10-10 14:07:00 17 /min [facility] Body height 2021-10-10 14:07:00 172.7 cm [facility] Body weight 2021-10-10 14:07:00 103.738 kg [facility] BMI 2021-10-10 14:07:00 34.77 kg/m2 [facility] Procedures This patient has no known procedures. Encounters Start End Encounter Admission Attending Care Care Encounter Source Date/Time Date/Time Type Type Clinicians Facility Department ID 2017-12-09 Inpatient U [facility] MED [id number] [facility]HB L 01:18:00 2022-01-13 2022-01-13 Outpatient Sobia MILES [facility] [id number] Univers 09:00:00 09:00:00 BELINDA zuleta [facility] 2021-10-10 2021-10-10 Outpatient Sobia MILES [facility] [id number] Univers 09:00:00 09:45:03 BELINDA zuleta [facility] 2021-10-10 2021-10-10 Office Ginger, [facility] [id number] Univers 09:00:00 09:45:03 Visit Belinda PATINO [id number] ity of [place].2.686 [place] PROF[place] [id number] [facility] 059 [facility] 2021-10-10 2021-10-10 [facility] [id number] Univers 09:00:00 09:45:03 BELINDA roger peralta song [facility] 2021-10-10 2021-10-10 Orders Doctor JERO [id number] Univers 00:00:00 00:00:00 Only Unassigned, SHAWN [id number] ity of [place] [facility] 4.2.7.2.686 [place] [phone] [facility] 009 [place] 2021-07-04 2021-07-04 Office Clinic, Td Gi Liver TDCJ 1.2.8 40.114 [id number] Univers 13:00:00 13:20:00 Visit [facility] [id number] [id number] [place] [phone] [facility] 341 Branch 2021-03-17 2021-03-17 Orders Doctor JERO 1.2.840.114 [id number] Univers 00:00:00 00:00:00 Only Unassigned, SHAWN [id number] ity of [place] [facility] 4.2.7.2.686 [place] [phone] [facility] 009 Branch 2021-02-26 2021-02-26 Office Cardiology, Td TDCJ 1.2.840.11 [id number] Univers 11:14:35 15:46:41 Visit Delonte Fitzgerald Paul [facility] [id number] .10 [id number] [place] [phone] [facility] 340 Branch 2021-02-21 2021-02-22 Hospital ALLI [place] 1.2.840.114 [id number] Univers 06:00:00 03:26:00 Encounter [facility] [id number] [id number] [phone] [facility] 105 Branch 2021-02-21 2021-02-21 [facility] Barbosa TDCJ [id number] Univers 12:30:00 23:59:00 Encounter [facility] [id number] [id number] [phone] [facility] 844 Branch 2021-02-21 2021-02-21 [facility] 1.2.840 .114 [id number] Univers 07:33:52 12:55:01 [facility] [id number] [place] [phone] [facility] 340 Branch 2021-02-10 2021-02-10 [facility] LEANNE [id number] Univers 07:15:37 23:59:00 Encounter Melba [facility]DC[facility] LAB [id number] [place] [phone] [facility] 806 Branch 2021-02-03 2021-02-03 Office Cardiology, [facility] TDCJ 1.2.840.11 [id number] Univers 10:00:37 10:15:37 Visit Ahmet Dominguez [facility] [id number] it[place] [phone] [facility] 340 Branch 2021-01-27 2021-01-28 [facility], TDCJ 1.2.840.114 [id number] Univers 06:00:00 04:03:00 Encounter [facility] [id number] [place] [phone] [facility] 105 Branch 2021-01-27 2021-01-27 [facility], TDCJ 1.2.840.114 [id number] Univers 08:28:53 23:59:00 Encounter [facility] [id number] [place] 4[place].2.[place] [phone] [facility] 809 Branch 2021-01-27 2021-01-27 Office Surgery, Tdc Oral TDCJ 1.2.840. 114 [id number] Univers 07:05:12 16:04:42 Visit Hazel [facility] [id number] [place] [phone] [facility] 214 Branch 2021-01-21 2021-01-22 Hospital Dorene TDCJ 1.2.840.114 [id number] Univers 06:00:00 03:50:00 Encounter [facility] [id number] [place] [phone] [facility] 105 Branch 2021-01-21 2021-01-21 Office Dermatology, [facility] TDCJ 1.2.840.1 [id number] Univers 12:03:40 14:55:23 Visit Adam Catherine [facility] [id number] [place] [phone] [facility] 217 Branch 2021-01-06 2021-01-06 Orders Doctor JERO 1.2.840.114 [id number] Univers 00:00:00 00:00:00 Only Unassigned, SHAWN 350.1.13.10 ity of [place] [facility] 4.2.7.2.686 [place] [phone] [facility] 009 Branch 2020-12-25 2020-12-27 Hospital Radha TDCJ 1.2.840.114 [id number] Univers 23:28:00 17:40:00 Encounter [facility] [id number] [place] [phone] [facility] 006 Branch 2020-12-25 2020-12-25 Emergency ER Germán, STLSJX STLSJX [id number] STLSJX 09:42:00 09:42:00 Rafiq [id number] 2020-12-24 2020-12-25 [facility] Radha, TDCJ 1.2.840.114 [id number] Univers 14:01:00 05:00:00 Encounter [facility] [id number] ity of 4.2.7.2.686 Maryanne solo [phone] [facility] 105 Branch 2020-12-17 2020-12-24 [facility] Annamarie Steele TDCJ 1.2.840.11 [id number] Univers 01:26:00 14:00:00 Encounter Jaime [facility] 350 .1.13.10 ity of Rikki Casey 4.2.7.2.686 [place] Radha Anthony [id number] [place] [address] Branch 2020-12-16 2020-12-16 Emergency ER Osvaldo, STLSJX STLSJX [id number] STLSJX 13:50:00 13:50:00 Gabriel [id number] 2020-07-16 2020-07-16 Emergency ER Nabeel, STLSJX STLSJX [id number] STLSJX 08:36:00 08:36:00 Ulises -[id number] 2019-11-22 2019-11-22 Outpatient Sobia MILES [facility] [id number] Univers 11:40:00 11:40:00 BELINDA duran o f [facility] Results Test Description Test Time Test Comments Results Result Sourc e Comments CT Chest W Con Name: ARGENTINA SALINAS : 1965 Sex: M [facility] Pt Name: ARGENTINA SALINAS [address] [facility] Phys: [place] [address] : 1965 Age: 55 SEX:M Exam Date: 12/16/20 Status: REG ER Acct: [id number] Loc: [facility] Pt Unit #: [id number] Report #: [id number] CC: Gabriel Riley MD CAT SCAN REPORT Order # Category/Exam [id number] CT/CT Chest W Con ([id number]): . Results EXAM: Chest CT with contrast [...] ARGENTINA SALINAS : 1965 Sex: M [facility] Pt Name: ARGENTINA SALINAS [address] Phys: [place] [address] : 1965 Age: 55 SEX:M Exam Date: 07/16/20 Status: REG ER Acct: [id number] Loc: [facility] Pt Unit #: [id number] Report #: [id number] CC: Ulises Lees MD IMAGING SERVICES REPORT Order # Category/Exam [id number] RAD/XR Chest 1 View Portable ([id number]): . Results EXAM: Chest one view: HISTORY: [...]
[2022-03-07] MEDS ORDERED: NA CHLORIDE 0.9% 1,000 ML ONE (16:25)
[2022-03-07] MEDS ORDERED: METOPROLOL TARTRATE 5 MG/5 ML INJ IV ONE (16:25)
[2022-03-07 16:45] LABS: Absolute Lymphocytes (CBC) 2.2 K/uL (0.7-4.9); MCV 90.8 fL (80-100); MPV 8.1 fL (7.6-11.3); RBC Red Blood Cell Count 5.07 M/uL (4.33-5.43)
--- NOTE | 2022-03-07 16:54 | P.HP ---
Certification for Inpatient Patient admitted to: Observation With expected LOS: <2 Midnights Practitioner: I am a practitioner with admitting privileges, knowledge of patient current condition, hospital course, and medical plan of care. Services: Services provided to patient in accordance with Admission requirements found in Title 42 Section 412.3 of the Code of Federal Regulations Patient History Date of Service: 03/07/22 Allergies codeine Adverse Reaction (Intermediate, Verified 08/20/17 16:14) Hives/Rash Home Medications: Apixaban [Eliquis *] 5 mg PO BID 08/20/17 Metoprolol Tartrate [Lopressor*] 100 mg PO BID #60 tab 09/23/17 Amiodarone HCl [Cordarone*] 400 mg PO BID #52 tab 12/05/21 Digoxin [Lanoxin*] 0.25 mg PO DAILY #30 tab 12/05/21 Furosemide [Lasix*] 40 mg PO DAILY #30 tab 12/05/21 Losartan Potassium [Cozaar*] 25 mg PO DAILY #30 12/05/21 Mometasone/Formoterol [Dulera 200 Mcg/5 Mcg Inhaler] 2 puff IH BID #1 inhaler 12/05/21 Spironolactone [Aldactone*] 25 mg PO BID #60 tab 12/05/21 - Past Medical/Surgical History Diabetic: No -: chf -: A-fibb 2006 -: pleural effusion -: clot "went away""atrium in heart attached to the lead of my device" -: Hep C -: HTN -: ICP left chest wall -: umbilical hernia - Family History Mother -: Heart disease, Cancer Father -: Cancer Sister -: Heart disease - Social History Alcohol use: Yes CD- Drugs: Yes Caffeine use: Yes Assessment and Plan - Problems (Diagnosis) (1) Acute on chronic systolic (congestive) heart failure Onset Date: 11/19/17 Current Visit: No Status: Acute Plan: restart diuretics, lasix and spironolactone, daily weight, I&O, recent ECHO with EF 25% (2) Atrial fibrillation with RVR Onset Date: 11/19/17 Current Visit: No Status: Acute Plan: restart amiodarone, metoprolol, consider restarting digoxin, consult cardiology (3) Noncompliance Current Visit: No Status: Acute 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
[2022-03-07 16:58] LABS: Magnesium 1.9 mg/dL (1.8-2.4); Potassium 3.9 mmol/L (3.5-5.1)
[2022-03-07 17:02] LABS: Troponin High Sensitivity 77.7 pg/mL (<58.9)
[2022-03-07 17:04] LABS: SARS-CoV-2 Antigen Rapid Res Negative (Negative)
--- NOTE | 2022-03-07 17:10 | RAD REPORT ---
EXAM DESCRIPTION: RAD - Chest Single View - 03/07/2022 5:03 pm CLINICAL HISTORY: chest pain COMPARISON: Chest Single View dated 12/03/2021; Chest Single View dated 09/29/2018; Chest Single View dated 07/31/2018; Chest Single View dated 11/18/2017 FINDINGS: Lines: ICD. Lungs: Pulmonary vascular congestion. Pleural: No significant pleural effusions or pneumothorax. Cardiac: Cardiomegaly. Mediastinum: Within normal limits. Bones: No acute fractures. Other: None IMPRESSION: Pulmonary vascular congestion without alveolar edema or consolidative airspace disease.
--- NOTE | 2022-03-07 18:37 | EDPHYS ---
Physician Documentation [facility] Name: Jayson Burns Age: 56 yrs Sex: Male : 1965 Arrival Date: 03/07/2022 Time: 16:11 Bed 23 Private MD: ED Physician Kar Perez HPI: 03/07 16:23 This 56 yrs old Male presents to ER via Unassigned with complaints of Breathing ms3 Difficulty, High Blood Pressure. 16:23 The patient has shortness of breath at rest. Onset: The symptoms/episode began/occurred ms3 acutely, 2 day(s) ago. Duration: The symptoms are continuous, and are steadily getting worse. The patient's shortness of breath is aggravated by exertion, is alleviated by nothing. Associated signs and symptoms: Pertinent positives: chest pain. Severity of symptoms: At their worst the symptoms were severe in the emergency department the symptoms are unchanged Pain is currently a 0 / 10. Patient states he has been out of all of his medications except Eliquis. Historical: - Allergies: 16:24 Codeine; jl7 - Home Meds: 16:24 Eliquis 5 mg Oral tab 1 tab 2 times per day [Active]; jl7 - PMHx: 16:24 Atrial Fib; CHF; defibrillator; Hypertension; Cerebrovascular accident; jl7 - Immunization history:: Adult Immunizations up to date, Client reports receiving the 2nd dose of the Covid vaccine, Last tetanus immunization: up to date. - Social history:: Smoking status: Patient/guardian denies using tobacco. ROS: 16:23 Constitutional: Negative for fever, and chills. Neck: Negative for injury, pain, and ms3 swelling. 16:23 Back: Negative for injury and pain, MS/Extremity: Negative for injury and deformity, Skin: Negative for injury, rash, and discoloration. 16:23 Cardiovascular: Positive for chest pain, orthopnea. 16:23 Respiratory: Positive for shortness of breath. 16:23 All other systems are negative. Exam: 16:23 Constitutional: This is a well developed, well nourished patient who is awake, alert, ms3 and in no acute distress. Head/Face: Normocephalic, atraumatic. Neck: Trachea midline, no cervical lymphadenopathy. Supple, full range of motion without nuchal rigidity, or vertebral point tenderness. No Meningismus. Chest/axilla: Normal chest wall appearance and motion. Nontender with no deformity. Respiratory: Lungs have equal breath sounds bilaterally, clear to auscultation and percussion. No rales, rhonchi or wheezes noted. No increased work of breathing, no retractions or nasal flaring. 16:23 Cardiovascular: Rate: tachycardic, actual rate is 170 bpm, Rhythm: irregularly irregular, Pulses: no pulse deficits are appreciated, Heart sounds: normal, normal S1and S2, no S3 or S4. 16:23 ECG was reviewed by the Attending Physician. Vital Signs: 16:23 BP 150 / 97; Pulse 167; Resp 30; Temp 97.8; Pulse Ox 100% ; Weight 104.33 kg; Height 5 jl7 ft. 8 in. (172.72 cm); Pain 0/10; 16:23 BP 148 / 115; Pulse 171; Resp 24; Pulse Ox 100% on R/A; tp1 16:30 BP 128 / 103; Pulse 133; Resp 29; Pulse Ox 98% on R/A; tp1 16:35 BP 137 / 101; Pulse 129; Resp 26; Pulse Ox 98% on R/A; tp1 16:40 BP 119 / 100; Pulse 112; Resp 27; Pulse Ox 98% on R/A; tp1 16:45 BP 107 / 96; Pulse 110; Resp 26; Pulse Ox 98% on R/A; tp1 16:50 BP 107 / 95; Pulse 112; Resp 17; Pulse Ox 98% on R/A; tp1 17:30 BP 118 / 87; Pulse 115; Resp 21; Pulse Ox 99% on R/A; tp1 18:38 BP 122 / 105; Pulse 108; Resp 28; Pulse Ox 100% on R/A; tp1 19:54 BP 131 / 106; Pulse 122; Resp 25; Pulse Ox 98% on R/A; tp1 16:23 Body Mass Index 34.97 (104.33 kg, 172.72 cm) jl7 MDM: 16:27 Patient medically screened. ms3 18:43 Differential diagnosis: CHF exacerbation, Myocardial Infarction pulmonary edema. Data ms3 reviewed: vital signs, nurses notes, lab test result(s), EKG, radiologic studies, and as a result, I will admit patient. Data interpreted: online services manager: rate is 117 beats/min, rhythm is atrial fibrillation, with rapid ventricular response, Interpretation: irregular, tachycardia. Counseling: I had a detailed discussion with the patient and/or guardian regarding: the historical points, exam findings, and any diagnostic results supporting the discharge/admit diagnosis, lab results, radiology results, the need for further work-up and treatment in the hospital. ED course: Discussed case with ANDRÉS Frias, and she accepts for Dr Bailey. Discussed plan for admission with patient and he understands/ agrees.. 03/07 16:28 Order name: SARS RAPID tp1 03/07 16:37 Order name: Basic Metabolic Panel [facility] 03/07 16:37 Order name: Troponin High Sensitivity [facility] 03/07 16:37 Order name: NT PRO-BNP [facility] 03/07 16:37 Order name: Magnesium [facility] 03/07 16:37 Order name: CBC with Automated Diff; Complete Time: 16:56 [facility] 03/07 16:51 Order name: SARS-COV-2 Antigen Rapid; Complete Time: 17:10 [facility] 03/07 17:42 Order name: NT PRO-BNP [facility] 03/07 17:42 Order name: Basic Metabolic Panel [facility] 03/07 17:42 Order name: Basic Metabolic Panel [facility] 03/07 17:42 Order name: CBC with Automated Diff [facility] 03/07 17:42 Order name: CBC with Automated Diff [facility] 03/07 17:42 Order name: CKMB Creatine Kinase MB [facility] 03/07 17:42 Order name: CKMB Creatine Kinase MB [facility] 03/07 17:42 Order name: Comprehensive Metabolic Panel [facility] 03/07 17:42 Order name: Comprehensive Metabolic Panel [facility] 03/07 17:42 Order name: Lipid Profile [facility] 03/07 17:42 Order name: Lipid Profile [facility] 03/07 17:42 Order name: Magnesium [facility] 03/07 17:42 Order name: Magnesium [facility] 03/07 17:42 Order name: Phosphorus [facility] 03/07 17:42 Order name: Phosphorus [facility] 03/07 17:42 Order name: Protime (+INR) [facility] 03/07 17:42 Order name: Protime (+INR) [facility] 03/07 16:23 Order name: EKG; Complete Time: 18:26 ms3 03/07 16:23 Order name: Cardiac monitoring; Complete Time: 16: ms3 03/07 16:23 Order name: EKG - Nurse/Tech; Complete Time: 16: ms3 03/07 16:23 Order name: IV Saline Lock; Complete Time: 16: ms3 03/07 16:23 Order name: Labs collected and sent; Complete Time: 16: ms3 03/07 16:23 Order name: O2 Per Protocol; Complete Time: 16: ms3 03/07 16:23 Order name: O2 Sat Monitoring; Complete Time: 16: ms3 03/07 16:34 Order name: Chest Single View; Complete Time: 17:12 EDMS 03/07 17:42 Order name: CONS Physician Consult EDMS 03/07 17:42 Order name: Heart Healthy EDMS 03/07 17:42 Order name: EKG Electrocardiogram EDMS 03/07 17:42 Order name: EKG Electrocardiogram EDMS 03/07 17:42 Order name: PTT, Activated Partial Thromb EDMS 03/07 17:42 Order name: PTT, Activated Partial Thromb EDMS 03/07 17:58 Order name: Social Service Consult EDMS 03/07 18:36 Order name: CKMB Creatine Kinase MB EDMS EC:23 Rate is 177 beats/min. Rhythm is irregularly irregular. Right axis deviation noted. OH ms3 interval is normal. QRS interval is normal. Clinical impression: Atrial Fibrillation with RVR. Interpreted by me. Reviewed by me. Administered Medications: 16:25 Drug: Metoprolol 5 mg Route: IVP; Site: right antecubital; tp1 16:32 Drug: Metoprolol 5 mg Route: IVP; Site: right antecubital; tp1 16:37 Drug: Metoprolol 5 mg Route: IVP; Site: right antecubital; tp1 17:00 Follow up: Response: Marked relief of symptoms tp1 Disposition: 18:50 Critical Care:. ms3 Disposition Summary: 03/07/22 18:36 Hospitalization Ordered Hospitalization Status: Inpatient Admission ms3 Location: Telemetry/MedSurg (Inpatient) ms3 Condition: Stable ms3 Problem: new ms3 Symptoms: are unchanged ms3 Bed/Room Type: Standard ms3 Provider: Kenny Bailey(03/07/22 18:42) ms3 Room Assignment: [facility](03/07/22 21:54) cg Diagnosis - Unspecified atrial fibrillation ms3 - Heart failure, unspecified ms3 Forms: - Medication Reconciliation Form ms3 - SBAR form ms3 Critical care time excluding procedures: 18:50 Critical care time: Bedside Care: 35 minutes, Consultation: 5 minutes. Total time: 40 ms3 minutes Signatures: Dispatcher [employer] EDMS Cinda Fritz, EMPLOYEE RELATIONS SPECIALIST-C EMPLOYEE RELATIONS SPECIALIST-Csnw Sintia Cary, RN RN cg Markel Pak RN RN jl7 Kar Perez DO DO ms3 Melissa Tuttle, RN RN tp1 Corrections: (The following items were deleted from the chart) 16:25 16:24 Home Meds: Metoprolol Tartrate Oral; jl7 jl7 18:36 17:42 CKMB Creatine Kinase MB ordered. EDMS EDMS 18:36 18:26 BASIC METABOLIC PANEL+C.LAB.BRZ ordered. EDMS EDMS 18:36 18:26 CBC+H.LAB.BRZ ordered. EDMS EDMS 18:36 18:26 MAGNESIUM+C.LAB.BRZ ordered. EDMS EDMS 18:36 18:26 PROBNP+C.LAB.BRZ ordered. EDMS EDMS 18:36 18:26 Troponin High Sensitivity+C.LAB.BRZ ordered. EDMS EDMS 18:42 18:36 Jefferson Godfrey ms3 ms3 18:43 18:26 Chest Single View+RAD.RAD.BRZ ordered. EDMS EDMS 21:54 18:36 ms3 cg
--- NOTE | 2022-03-07 18:37 | ER ---
Nurse's Notes [facility] Name: Jayson Burns Age: 56 yrs Sex: Male : 1965 Arrival Date: 03/07/2022 Time: 16:11 Bed 23 Private MD: Diagnosis: Unspecified atrial fibrillation;Heart failure, unspecified Presentation: 03/07 16:23 Chief complaint: Patient states: Pt reports increasing SOB x2 weeks, worse x2 days. jl7 States he has been out of all his medications x2 weeks. Coronavirus screen: Vaccine status: Patient reports being unvaccinated. Client denies travel out of the [place] in the last 14 days. Ebola Screen: Patient negative for fever greater than or equal to 101.5 degrees Fahrenheit, and additional compatible Ebola Virus Disease symptoms Patient denies exposure to infectious person. Patient denies travel to an Ebola-affected area in the 21 days before illness onset. Initial Sepsis Screen: Does the patient meet any 2 criteria? RR > 20 per min. HR > 90 bpm. Yes Does the patient have a suspected source of infection? No. Patient's initial sepsis screen is negative. Risk Assessment: Do you want to hurt yourself or someone else? Patient reports no desire to harm self or others. Onset of symptoms was February 21, 2022. 16:23 Method Of Arrival: Ambulatory [facility] 16:23 Acuity: MARILUZ 2 jl7 Triage Assessment: 16:24 General: Appears distressed, Behavior is calm, cooperative. Pain: Denies pain. jl7 Cardiovascular: Heart tones present Patient's skin is warm and dry. Pulses are all present. Rhythm is atrial fibrillation with rapid ventricular response. Respiratory: Reports shortness of breath Airway is patent Respiratory effort is labored, Breath sounds are clear Onset: The symptoms/episode began/occurred gradually, the patient has moderate shortness of breath. Historical: - Allergies: 16:24 Codeine; jl7 - Home Meds: 16:24 Eliquis 5 mg Oral tab 1 tab 2 times per day [Active]; jl7 - PMHx: 16:24 Atrial Fib; CHF; defibrillator; Hypertension; Cerebrovascular accident; jl7 - Immunization history:: Adult Immunizations up to date, Client reports receiving the 2nd dose of the Covid vaccine, Last tetanus immunization: up to date. - Social history:: Smoking status: Patient/guardian denies using tobacco. Screenin:50 Abuse screen: Denies threats or abuse. Denies injuries from another. Nutritional tp1 screening: No deficits noted. Tuberculosis screening: No symptoms or risk factors identified. Fall Risk None identified. Assessment: 16:23 General: Appears in no apparent distress. uncomfortable, Behavior is cooperative, tp1 anxious. Pain: Complains of pain in chest Pain does not radiate. Quality of pain is described as pressure. Neuro: Level of Consciousness is awake, alert, obeys commands, Oriented to person, place, time, situation. Neuro: Reports blurred vision headache. Cardiovascular: Reports fatigue, shortness of breath, Capillary refill < 3 seconds in bilateral fingers Patient's skin is warm and dry. Respiratory: Airway is patent Respiratory effort is even, unlabored. GI: No signs and/or symptoms were reported involving the gastrointestinal system. : Reports has not urinated in over a week. EENT: No signs and/or symptoms were reported regarding the EENT system. Derm: Skin is pink, warm \T\ dry. Musculoskeletal: Circulation, motion, and sensation intact. 17:30 Reassessment: Patient appears in no apparent distress at this time. No changes from tp1 previously documented assessment. Patient and/or family updated on plan of care and expected duration. Pain level reassessed. Patient is alert, oriented x 3, equal unlabored respirations, skin warm/dry/pink. 18:35 Reassessment: Patient appears in no apparent distress at this time. Patient is alert, tp1 oriented x 3, equal unlabored respirations, skin warm/dry/pink. continues to CO SOB. 19:53 Reassessment: Patient appears in no apparent distress at this time. No changes from tp1 previously documented assessment. Patient is alert, oriented x 3, equal unlabored respirations, skin warm/dry/pink. visiting the family at bedside. 21:15 Reassessment: Patient appears in no apparent distress at this time. No changes from tp1 previously documented assessment. Patient is alert, oriented x 3, equal unlabored respirations, skin warm/dry/pink. sandwich and fruit cup at bedside. 22:07 Reassessment: report given to Katt abel Vital Signs: 16:23 BP 150 / 97; Pulse 167; Resp 30; Temp 97.8; Pulse Ox 100% ; Weight 104.33 kg; Height 5 jl7 ft. 8 in. (172.72 cm); Pain 0/10; 16:23 BP 148 / 115; Pulse 171; Resp 24; Pulse Ox 100% on R/A; tp1 16:30 BP 128 / 103; Pulse 133; Resp 29; Pulse Ox 98% on R/A; tp1 16:35 BP 137 / 101; Pulse 129; Resp 26; Pulse Ox 98% on R/A; tp1 16:40 BP 119 / 100; Pulse 112; Resp 27; Pulse Ox 98% on R/A; tp1 16:45 BP 107 / 96; Pulse 110; Resp 26; Pulse Ox 98% on R/A; tp1 16:50 BP 107 / 95; Pulse 112; Resp 17; Pulse Ox 98% on R/A; tp1 17:30 BP 118 / 87; Pulse 115; Resp 21; Pulse Ox 99% on R/A; tp1 18:38 BP 122 / 105; Pulse 108; Resp 28; Pulse Ox 100% on R/A; tp1 19:54 BP 131 / 106; Pulse 122; Resp 25; Pulse Ox 98% on R/A; tp1 16:23 Body Mass Index 34.97 (104.33 kg, 172.72 cm) jl7 ED Course: 16:11 Patient arrived in ED. jj6 16:12 Kar Perez DO is Attending Physician. ms3 16:24 Triage completed. jl7 16:24 Arm band placed on right wrist. Patient placed in an exam room, on a stretcher. EKG jl7 completed in triage. Results shown to MD. 16:25 EKG done, by ED staff, reviewed by Kar Perez DO. mm9 16:25 Patient has correct armband on for positive identification. Placed in gown. Bed in low mm9 position. Call light in reach. Side rails up X 1. Warm blanket given. environmental monitoring technician on. Pulse ox on. NIBP on. 16:26 Inserted saline lock: 20 gauge in right antecubital area, using aseptic technique. zm Blood collected. 16:48 Melissa Tuttle, RN is Primary Nurse. tp1 16:54 No provider procedures requiring assistance completed. tp1 17:05 Chest Single View In Process Unspecified. EDMS 18:35 Jefferson Godfrey MD is Hospitalizing Provider. ms3 18:42 Kenny Bailey MD is Hospitalizing Provider. ms3 22:47 Patient admitted, IV remains in place. tp1 Administered Medications: 16:25 Drug: Metoprolol 5 mg Route: IVP; Site: right antecubital; tp1 16:32 Drug: Metoprolol 5 mg Route: IVP; Site: right antecubital; tp1 16:37 Drug: Metoprolol 5 mg Route: IVP; Site: right antecubital; tp1 17:00 Follow up: Response: Marked relief of symptoms tp1 Medication: 16:54 VIS not applicable for this client. tp1 Outcome: 18:36 Decision to Hospitalize by Provider. ms3 22:00 Admitted to Med/surg accompanied by tech, via wheelchair, with chart. tp1 22:00 Condition: good 22:00 Discharge instructions given to patient, Instructed on the need for admit, Demonstrated understanding of instructions. 22:19 Patient left the ED. bb Signatures: Dispatcher [employer] EDMS Natacha Castrejon RN RN bb Markel Pak RN RN jl7 Kar Perez DO DO ms3 Debbie Matute jj6 Melissa Tuttle RN RN tp1 Jenniffer Hooper Maria mm9 Corrections: (The following items were deleted from the chart) 16:25 16:24 Home Meds: Metoprolol Tartrate Oral; jl7 jl7 16:53 16:51 Reassessment: pt states he has not urinated in over a week. provider notified tp1 tp1
[2022-03-07 18:52] LABS: CKMB Creatine Kinase MB 9.8 ng/mL (1.0-3.6)
[2022-03-07] MEDS: APIXABAN 5 MG TABLET PO SCH (22:44)
[2022-03-07] MEDS: AMIODARONE HCL 200 MG TAB PO SCH (22:44)
[2022-03-07] MEDS: SPIRONOLACTONE 25 MG TABLET PO SCH (22:44)
[2022-03-07 22:56] VITALS: BMI 36.1
[2022-03-07] MEDS: MELATONIN 5 MG TABLET PO PRN (23:26)
[2022-03-08] MEDS ORDERED: METOPROLOL TARTRATE 5 MG/5 ML INJ IV STA ×3 (00:49→13:26)
[2022-03-08] MEDS ORDERED: METOPROLOL TARTRATE 5 MG/5 ML INJ IV ONE (00:51)
[2022-03-08] MEDS: METOPROLOL XL 100 MG TAB PO SCH (03:03)
[2022-03-08] MEDS ORDERED: FUROSEMIDE 20 MG/ 2ML VIAL IV ONE (04:48)
[2022-03-08 05:56] LABS: Absolute Lymphocytes (CBC) 1.9 K/uL (0.7-4.9); Hematocrit 48.2 % (39.6-49.0); Lymphocytes % 24.3 % (15.3-44.8); MCV 91.4 fL (80-100); MPV 8.3 fL (7.6-11.3); RBC Red Blood Cell Count 5.27 M/uL (4.33-5.43)
[2022-03-08 06:22] LABS: Albumin 3.7 g/dL (3.4-5.0); Bilirubin Total 1.8 mg/dL (0.2-1.0); Magnesium 1.9 mg/dL (1.8-2.4); Phosphorus 2.4 mg/dL (2.5-4.9); Potassium 4.3 mmol/L (3.5-5.1); Protein, Total 7.2 g/dL (6.4-8.2)
[2022-03-08 07:04] LABS: Protime INR 1.55
[2022-03-08] MEDS ORDERED: POTASS/SODIUM PHOSPHATE 1 PKT POWD.PACK PO ONE ×4 (08:01→10:00)
[2022-03-08] MEDS: SPIRONOLACTONE 25 MG TABLET PO SCH ×2 (08:50→21:00)
[2022-03-08] MEDS: APIXABAN 5 MG TABLET PO SCH ×2 (08:50→21:00)
[2022-03-08] MEDS: AMIODARONE HCL 200 MG TAB PO SCH ×2 (08:50→21:00)
[2022-03-08] MEDS: FUROSEMIDE 20 MG TABLET PO SCH ×2 (08:50→16:03)
[2022-03-08] MEDS: NICOTINE 14 MG/PAT TD SCH (08:51)
[2022-03-08] MEDS ORDERED: ASPIRIN EC 81 MG TAB PO SCH (09:00)
[2022-03-08] MEDS: DIGOXIN 0.125 MG TABLET PO SCH (09:33)
--- NOTE | 2022-03-08 15:44 | RAD REPORT ---
EXAM DESCRIPTION: RAD - Abdomen 1 View (KUB) - 03/08/2022 5:44 am CLINICAL HISTORY: 56 years Male abdominal distension TECHNIQUE: 1 x-ray view of the abdomen was performed on 03/08/2022 at 5:27 AM. COMPARISON: None. FINDINGS: The bowel gas pattern is nonspecific and nonobstructive. No pathologic abdominal or pelvic calcifications are identified. No abnormal air collections are identified. No focal soft tissue abnormalities are seen. No acute osseous abnormalities are identified. IMPRESSION: Nonspecific nonobstructive bowel gas pattern. Electronically signed by: Amita Cervantes DO 03/08/2022 7:54 AM DEVELOPMENT INTERN Due to temporary technical issues with the PACS/Fluency reporting system, reports are being signed by the in house radiologists without review as a courtesy to insure prompt reporting. The interpreting radiologist is fully responsible for the content of the report.
[2022-03-08] MEDS ORDERED: ALBUMIN HUMAN 25% 100 ML IV ONE (16:09)
--- NOTE | 2022-03-08 17:55 | P.PN ---
Date of Service: 03/08/22 Subjective: No significant change since admission [place] IV Lasix helped yesterday. Reports oral Lasix does not really help much in the past Dyspnea with movement, unable to lay flat due to dyspnea as well No edema in lower extremities Feels abdomen is bloated ROS: 10 point ROS as noted above, otherwise negative Physical exam GEN: Alert, oriented, mild distress HEENT: Normal conjunctiva, sclera anicteric CV: Irregularly irregular rhythm, no edema Pulm: Mildmoderate respirations on nasal cannula, bilateral crackles ABD: Mildly distended, nontender Neuro: Normal speech, normal affect Problem List Acute on chronic systolic CHF Atrial fibrillation with RVR Noncompliance Nicotine dependence History of alcohol abuse/dependence Chronic anticoagulation Hypertension next hyperlipidemia Nonischemic dilated cardiomyopathy Change p.o. Lasix to IV Lasix Continue amiodarone and metoprolol, restart home digoxin Continues with atrial fibrillation, slightly improved rates, but remain above 100 Cardiology consulted Patient with history of very resistant A. fib Has been on amiodarone, trial of sotalol, metoprolol, digoxin, cardioverted Noncompliant with medications, secondary to cost Need further improvement on his volume status to help achieve better control and his A. fib as well Dispo: home, ~2-3 days Time Spent Managing Pts Care (In Minutes): 35
[2022-03-08] MEDS: FUROSEMIDE 20 MG/ 2ML VIAL IV SCH (17:58)
--- NOTE | 2022-03-08 19:19 | RAD REPORT ---
EXAM DESCRIPTION: CT - Chest Abd Pelvis Wo Con - 03/08/2022 6:42 pm COMPARISON: CT chest 2018 TECHNIQUE: Computed axial tomography of the chest, abdomen and pelvis was obtained. Oral contrast wa s given. IV contrast was not requested. All CT scans are performed using dose optimization technique as appropriate and may include automated exposure control or mA/KV adjustment according to patient size. FINDINGS: The evaluation of mediastinum, debbie, vessels and solid organs is limited secondary to the lack of IV contrast administration The lungs are clear A small mediastinal lymph nodes probably reactive. No hilar lymphadenopathy. Small bilateral pleural effusions. A pericardial effusion is not seen. Left and caudate lobes of the liver are prominent the gallbladder is contracted Spleen, pancreas, adrenals and kidneys appear grossly normal There is no evidence of diverticulitis. Normal appendix Small left inguinal hernia contains fat IMPRESSION: Small bilateral pleural effusions Probable cirrhosis Contracted gallbladder. If clinically indicated further evaluation with ultrasound could be obtained
[2022-03-09 04:04] LABS: Hematocrit 44.4 % (39.6-49.0); MCV 91.3 fL (80-100); MPV 8.7 fL (7.6-11.3); RBC Red Blood Cell Count 4.86 M/uL (4.33-5.43)
[2022-03-09 04:13] LABS: Albumin 3.4 g/dL (3.4-5.0); Bilirubin Total 1.9 mg/dL (0.2-1.0); Magnesium 1.8 mg/dL (1.8-2.4); Potassium 3.7 mmol/L (3.5-5.1); Protein, Total 6.5 g/dL (6.4-8.2)
[2022-03-09] MEDS: METOPROLOL XL 100 MG TAB PO SCH (05:48)
[2022-03-09] MEDS: SPIRONOLACTONE 25 MG TABLET PO SCH ×2 (08:46→20:21)
[2022-03-09] MEDS: FUROSEMIDE 20 MG/ 2ML VIAL IV SCH ×2 (08:46→17:40)
[2022-03-09] MEDS: APIXABAN 5 MG TABLET PO SCH ×2 (08:46→20:22)
[2022-03-09] MEDS: DIGOXIN 0.125 MG TABLET PO SCH (08:46)
[2022-03-09] MEDS: NICOTINE 14 MG/PAT TD SCH (08:47)
[2022-03-09] MEDS: AMIODARONE HCL 200 MG TAB PO SCH ×2 (08:47→20:21)
[2022-03-09] MEDS ORDERED: POTASSIUM CL SA 10 MEQ TAB PO ONE (09:00)
--- NOTE | 2022-03-09 12:53 | EKG ---
Test Date: 2022-03-07 Test Time: 16:17:26 Scuba Diver: SUSANA MEASUREMENT RESULTS: Intervals: Rate: 177 [place]: QRSD: 96 QT: 266 QTc: 456 [place]: P: [place]: QRS: 125 T: 72 INTERPRETIVE STATEMENTS: Atrial fibrillation with rapid ventricular response Right axis deviation Nonspecific ST abnormality Abnormal ECG Compared to ECG 12/03/2021 08:58:04 Right-axis deviation now present ST (T wave) deviation now present Prolonged QT interval no longer present Electronically Signed On 03-09-22 12:50:02 ENGINEERING OPERATOR by Mic Brasher
--- NOTE | 2022-03-09 17:43 | P.PN ---
Date of Service: 03/09/22 Subjective: improving felt albumin + IV lasix made significant different and started to urinate ~30min after that combo last night breathing improved now with loose stool - black reports this happens when he takes lasix; denies any prior GI bleed ROS: 10 point ROS as noted above, otherwise negative Physical exam GEN: Alert, oriented, short of breath HEENT: Normal conjunctiva, sclera anicteric CV: Irregularly irregular rhythm, no edema Pulm: Mild labored respirations on nasal cannula, bilateral crackles ABD: soft, non distended, nontender Neuro: Normal speech, normal affect Problem List Acute on chronic systolic CHF Atrial fibrillation with RVR Noncompliance Nicotine dependence History of alcohol abuse/dependence Chronic anticoagulation Hypertension next hyperlipidemia Nonischemic dilated cardiomyopathy Change p.o. Lasix to IV Lasix on 03/08; received albumin prior to evening dose of 03/08, good UOP Continue amiodarone and metoprolol, home digoxin Continues with atrial fibrillation, starting to get better rate control Cardiology consulted awaiting recs Patient with history of very resistant A. fib Has been on amiodarone, trial of sotalol, metoprolol, digoxin, cardioverted Noncompliant with medications, secondary to cost Need further improvement on his volume status to help achieve better control and his A. fib as well Dispo: home, ~1-2 days Time Spent Managing Pts Care (In Minutes): 25
--- NOTE | 2022-03-09 19:44 | CON ---
Date of Consultation: 03/08/2022 Reason For Consultation: Shortness of breath. History Of Present Illness: This is a 56-year-old man with history of hypertension, atrial fibrillat ion, and congestive heart failure who ran out of his medications. He is known to have very low eject ion fraction of 25% presenting with worsening shortness of breath and orthopnea and denies having any chest pain. He used to be on Lasix at home and other heart failure medications and AFib medications including amiodarone and apixaban. He ran out and could not afford to see a doctor. Feels better a fter IV diuresis. Past Medical History: As outlined above in the HPI. Medications: Refer to reconciliation sheet for detailed list. Allergies: CODEINE. Family History: No premature coronary artery disease or cancer. Social History: He is a smoker. Does not drink or use any drugs. Review of Systems: All systems reviewed and are negative except as mentioned in HPI. Physical Examination: Vital Signs: Reviewed. Head And Neck: Pupils are equal and reactive to light. Intact eye movements. No JVD. No cervical lymphadenopathy. Neck is supple. Thyroid is not enlarged. Lungs: Decreased breathing sounds with rhonchi bilaterally. No accessory muscle use or muscle retra ction. Heart: Irregularly irregular. No extra sounds. Abdomen: Soft, nontender. Bowel sounds positive. No organomegaly. No masses or hernia. No rigidi ty or rebound. Extremities: No clubbing or cyanosis. Intact pulses. Skin: No rash. Neurologic: Alert, awake, and oriented x3. No acute focal deficits appreciated. Lymph Nodes: No cervical or axillary lymphadenopathy. Investigations: His BUN is 11 and creatinine 1.03. Troponin 77. NT proBNP is 4616. Chest x-ray: Congestive heart failure. Assessment And Recommendation: 1.[id number] systolic heart failure exacerbation. I agree with Lasix. Monitor BUN, creatinin e, and electrolytes and continue Aldactone and resume his medications including metoprolol and spiron olactone. 2.Atrial fibrillation, rate is controlled. Continue amiodarone and apixaban and Toprol. Strict low -salt diet is recommended and daily body weight. SR/MODL Voice ID: [id number] Report ID: [id number]
[2022-03-09] MEDS ORDERED: ACETAMINOPHEN 325 MG TABLET PO PRN (20:29)
[2022-03-09] MEDS: MELATONIN 5 MG TABLET PO PRN (21:52)
[2022-03-10 03:54] LABS: Hematocrit 43.5 % (39.6-49.0); MCV 90.2 fL (80-100); MPV 8.7 fL (7.6-11.3); RBC Red Blood Cell Count 4.82 M/uL (4.33-5.43)
[2022-03-10 04:00] VITALS: O2SAT 96
[2022-03-10 04:03] LABS: Albumin 3.2 g/dL (3.4-5.0); Bilirubin Total 1.4 mg/dL (0.2-1.0); Potassium 3.5 mmol/L (3.5-5.1); Protein, Total 6.3 g/dL (6.4-8.2)
[2022-03-10] MEDS: METOPROLOL XL 100 MG TAB PO SCH (05:29)
[2022-03-10 08:19] VITALS: BP 114/75; TEMP 96.8
[2022-03-10] MEDS: NICOTINE 14 MG/PAT TD SCH (08:26)
[2022-03-10] MEDS ORDERED: POTASSIUM CL SA 10 MEQ TAB PO ONE (09:00)
[2022-03-10] MEDS: FUROSEMIDE 20 MG/ 2ML VIAL IV SCH (10:05)
[2022-03-10] MEDS: APIXABAN 5 MG TABLET PO SCH (10:05)
[2022-03-10] MEDS: SPIRONOLACTONE 25 MG TABLET PO SCH (10:05)
[2022-03-10] MEDS: DIGOXIN 0.125 MG TABLET PO SCH (10:07)
[2022-03-10] MEDS: AMIODARONE HCL 200 MG TAB PO SCH (10:07)
--- NOTE | 2022-03-10 12:09 | P.DS ---
Admission Date: 03/07/22 Discharge Date: 03/10/22 Disposition: ROUTINE DISCHARGE Discharge Condition: FAIR Brief History of Present Illness: Mr. Burns is a 56yo man with a history of a.fib, hypertension, CHF who is noncompliant with therapy secondary to financial difficulties. 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 He has been admitted to this facility multiple times for a.fib with rvr and chf. A recent echo shows an EF of 25%. He presented with shortness of breath. Patient noted to be in rapid atrial fibrillation. Chest x-ray demonstrated pulmonary vascular congestion. Patient was given IV metoprolol and admitted for further management. Hospital Course: Diagnosis Acute on chronic systolic CHF Atrial fibrillation with RVR Noncompliance Nicotine dependence History of alcohol abuse/dependence Chronic anticoagulation Hypertension next hyperlipidemia Nonischemic dilated cardiomyopathy Patient treated with IV Lasix for CHF exacerbation. He received albumin infusion Home dose amiodarone and metoprolol, and digoxin were continued in the hospital stay. His heart rate eventually improved on his home medications Seen by cardiology Dr. Brasher who recommended to current medications. Patient with history of very resistant A. fib. PAtient has been on amiodarone, trial of sotalol, metoprolol, digoxin, status post cardioversion. e Patient's shortness of breath has improved. He has been ambulating, heart rate has been in the 80s at rest. Patient is deemed stable for discharge. Vital Signs/Physical Exam: Temp Pulse Resp BP Pulse Ox 96.8 F 97 H 19 114/75 93 03/10/22 08:00 03/10/22 08:00 03/10/22 08:00 03/10/22 08:00 03/10/22 08:00 General: Alert, In no apparent distress HEENT: Mucous membr. moist/pink Neck: JVD not distended Respiratory: Clear to auscultation bilaterally, Normal air movement Cardiovascular: Normal S1 S2, Irregular heart rate/rhythm Gastrointestinal: Normal bowel sounds, Soft and benign, Non-distended, No tenderness Musculoskeletal: No swelling Integumentary: No cyanosis Neurological: Normal strength at 5/5 x4 extr Laboratory Data at Discharge: WBC 6.10 K/uL (4.3-10.9) 03/10/22 03:06 Hgb 14.8 g/dL (13.6-17.9) 03/10/22 03:06 Hct 43.5 % (39.6-49.0) 03/10/22 03:06 Plt Count 167 K/uL (152-406) 03/10/22 03:06 PT 17.1 SECONDS (9.5-12.5) H 03/08/22 06:42 INR 1.55 03/08/22 06:42 APTT 37.8 SECONDS (24.3-36.9) H 03/08/22 06:42 Sodium 136 mmol/L (136-145) 03/10/22 03:06 Potassium 3.5 mmol/L (3.5-5.1) 03/10/22 03:06 BUN 19 mg/dL (7-18) H 03/10/22 03:06 Creatinine 1.09 mg/dL (0.55-1.3) 03/10/22 03:06 Glucose 100 mg/dL (74-106) 03/10/22 03:06 Phosphorus 2.4 mg/dL (2.5-4.9) L 03/08/22 05:39 Magnesium 1.8 mg/dL (1.8-2.4) 03/09/22 02:47 Total Bilirubin 1.4 mg/dL (0.2-1.0) H 03/10/22 03:06 AST 36 U/L (15-37) 03/10/22 03:06 ALT 26 U/L (12-78) 03/10/22 03:06 Alkaline Phosphatase 66 U/L (45-117) 03/10/22 03:06 Triglycerides 68 mg/dL (<150) 03/08/22 05:39 Cholesterol 120 mg/dL (<200) 03/08/22 05:39 HDL Cholesterol 47 mg/dL (40-60) 03/08/22 05:39 Cholesterol/HDL Ratio 2.55 03/08/22 05:39 Home Medications: Amiodarone HCl [Cordarone*] 200 mg PO BID #60 tab 03/10/22 Apixaban [Eliquis] 5 mg PO BID #60 tab 03/10/22 Digoxin [Lanoxin*] 0.125 mg PO DAILY #30 tab 03/10/22 Furosemide [Lasix*] 40 mg PO DAILY #30 tab 03/10/22 Losartan Potassium [Cozaar] 25 mg PO DAILY #30 tab 03/10/22 Spironolactone [Aldactone*] 25 mg PO BID #60 tab 03/10/22 New Medications: Spironolactone [Aldactone*] 25 mg PO BID #60 tab Amiodarone HCl [Cordarone*] 200 mg PO BID #60 tab Losartan Potassium [Cozaar] 25 mg PO DAILY #30 tab Apixaban [Eliquis] 5 mg PO BID #60 tab Digoxin [Lanoxin*] 0.125 mg PO DAILY #30 tab Furosemide [Lasix*] 40 mg PO DAILY #30 tab Physician Discharge Instructions: FOLLOW UP WITH PCP 1-2 WEEEKS FOLLOW UP WITH CARDIOLOGY 1-2 WEEKS PLEASE CALL TO SCHEDULE ALL FOLLOW UP APPOINTMENTS Diet: AHA Activity: Ad ashlee Followup: NONE,NONE [Primary Care Provider] - Time spent managing pt's care (in minutes): 35
== END 2022-03-10 15:00 | disposition home or self-care (01) | DRG 291 ==
LOC: ER 16:09 → 4TH 21:51
PROVIDERS: ADMIT Hospitalist; ATTEND Internal Medicine
DX: I11.0 Hypertensive heart disease with heart failure (principal); I50.23 Acute on chronic systolic (congestive) heart failure; I42.0 Dilated cardiomyopathy; I48.91 Unspecified atrial fibrillation; E78.5 Hyperlipidemia, unspecified; F17.200 Nicotine dependence, unspecified, uncomplicated; Z88.5 Allergy status to narcotic agent; Z79.01 Long term (current) use of anticoagulants; Z91.14 Patient's other noncompliance with medication regimen; Z95.810 Presence of automatic (implantable) cardiac defibrillator; Z86.73 Personal history of transient ischemic attack (TIA), and cerebral infarction without residual deficits; Z91.120 Patient's intentional underdosing of medication regimen due to financial hardship; Z79.899 Other long term (current) drug therapy; Z20.822 Contact with and (suspected) exposure to COVID-19
CPT/HCPCS: 36415; 71045; 71250; 74018; 74176; 80048; 80053; 80061; 82553; 83735; 83880; 84100; 84484; 85025; 85027; 85610; 85730; 87811; 93005; 94760; 96374; 99285; J1940; J7030; P9047

== ENCOUNTER 2022-06-19 12:17 | Inpatient (IN) | payer OTHER, SELFPAY ==
[2022-06-19] MEDS ORDERED: RSI MEDICATION KIT IV ONE (12:18)
--- OUTSIDE RECORDS SUMMARY | 2022-06-19 12:21 | XMS REPORT | Continuity of Care Document ---
:1965 Author Organization [facility] t Address [address] [place] [address] Care Team Providers Name Role Phone PCP, PATIENT DOES NOT HAVE A Primary Care Physician Unavaila BELINDA Gill Attending Clinician Unavailable Ginger PEREZ, Belinda Attending Clinician Doctor Unassigned, [place] Attending Clinician Unavailable Clinic, Tdc Gi Liver Attending Clinician Unavailable Ehsan Roach MD Attending Clinician Cardiology, Tdc Attending Clinician Unavailable Delonte Weber Attending Clinician [phone] Clare PEREZ, Rock Attending Clinician Melba Walker Attending Clinician Cardiology, Tdc Ep Attending Clinician Unavailable Ahmet Dominguez MD Attending Clinician Caleb Oliva DDS Attending Clinician Surgery, Tdc Oral Attending Clinician Unavailable Adam Catherine MD Attending Clinician Dermatology, Tdc Attending Clinician Unavailable Anthony Garcia MD Attending Clinician Rafiq Dunlap Attending Clinician Unavailable Annamarie Steele MD Attending Clinician Jaime PEREZ, Girish Saavedra Attending Clinician [phone] Rikki Casey MD Attending Clinician Gabriel [...] different from the original. ICD10 Diagnosis Term Precision Crop Manager Utility Cardiomyop Cardiomyop Disease Active U nivers athy athy 6-16 ity of 00:00: Medical Branch Transient Transient Disease Active Overview: Univers cerebral cerebral 4-01 Formattin ity of ischemia ischemia 00:00: g of this [place] as 00 note Medical might be Branch different from the original. ICD10 Diagnosis Term Precision C[employer] Manager Utility Allergies, Adverse Reactions, Alerts Allergy Allergy Status Severity Reaction(s) Onset Inactive Treating Comm ents Source Name Type Date Date Clinician Codeine Propensi Active Swelling 2020-04 Unive rs ty to 112 ity of adverse 00:00: [place] reaction 00 Medical s Branch CODEINE DRUG Active Swelling 2020-04 Univers INGREDI 1-12 ity of 00:00: 00 Medical [place] Social History Social Habit Start Date Stop Date Quantity Comments Source History formerly [facility] o f Alcohol Std Drinks [facility] History formerly [facility] o f Alcohol Binge [facility] History of tobacco Cigarette Smoker University of use [facility] History [facility] University o f Alcohol Frequency [facility] Exposure to 2021-09-30 2021-10-10 Not sure University of SARS-CoV-2 (event) 00:00:00 08:46:00 [facility] Alcohol intake 2021-07-04 2021-07-04 1.71 /d University of 00:00:00 00:00:00 [facility] Cigarettes smoked 2018-09-19 2018-09-19 Univers ity of current (pack per 00:00:00 00:00:00 [facility] ) - Reported Branch Cigarette 2018-09-19 2018-09-19 University of pack-years 00:00:00 00:00:00 [facility] Tobacco use and 2018-09-19 2018-09-19 Never used Universit y of exposure 00:00:00 00:00:00 [facility] Alcohol Comment 2013-06-24 2013-06-24 18-24 beers/day Univ ersity of 00:00:00 00:00:00 for 20-25 years [facility] Tobacco Comment 2013-06-24 2013-06-24 Started smoking Univ ersity of 00:00:00 00:00:00 when he was [age] [facility] dical years old. Branch Sex Assigned At [birth year] Universit y of 00:00:00 00:00:00 [facility] Smoking Status Start Date Stop Date Source Former smoker 2018-09-19 00:00:00 2018-09-19 00:00:00 [facility] Medications Ordered Filled Start Stop Current Ordering [...] ity of tablet 09:31: 00:00 mouth. 3 [place] 57 :00 tabs oral Medical every Branch evening metoprolol 0 Yes [id number] 50mg Take 1 Univers succinate - tablet [...] Completed Unive rsity of MODERNA VACCINE 00:00:00 [facility] SARS-COV-2 COVID-19 2020-07-29 Completed Unive rsity of MODERNA VACCINE 00:00:00 [facility] Influenza Virus 2020-01-13 Completed Universit y of Vaccine Quad ID 00:00:00 [facility] ical 18-64 YRS Branch Influenza Virus 2018-01-22 Completed Universit y of Vaccine Quad .5 mL 00:00:00 [facility] [place] 6+ MO Branch Pneumococcal 2013-06-28 Completed University o f Polysaccharide, 00:00:00 [facility] PPSV23 (PNEUMOVAX) Branch Influenza Virus 2013-04-19 Completed Universit y of Vaccine - Whole 00:00:00 [facility] Branch Influenza Virus 2010-05-12 Completed Universit y of Vaccine 00:00:00 [facility] Vital Signs Vital Name Observation Time Observation Value Comments Source Systolic blood 2021-10-10 14:10:00 149 mm[Hg] Univer sity of pressure [facility] Diastolic blood 2021-10-10 14:10:00 94 mm[Hg] Unive [facility] Heart rate 2021-10-10 14:10:00 93 /min [facility] Oxygen saturation in 2021-10-10 14:10:00 98 /min [facility] Arterial blood by [facility] Pulse oximetry [place] Body temperature 2021-10-10 14:07:00 36.83 [place] [facility] Respiratory rate 2021-10-10 14:07:00 17 /min [facility] Body height 2021-10-10 14:07:00 172.7 cm [facility] Body weight 2021-10-10 14:07:00 103.738 kg [facility] BMI 2021-10-10 14:07:00 34.77 kg/m2 [facility] Procedures This patient has no known procedures. Encounters Start End Encounter Admission Attending Care Care Encounter Source Date/Time Date/Time Type Type Clinicians Facility Department ID 2017-12-09 Inpatient U [facility] MED [id number] [facility]HB L 01:18:00 2022-01-13 2022-01-13 Outpatient Sobia [facility] [id number] Univers 09:00:00 09:00:00 BELINDA zuleta [facility] 2021-10-10 2021-10-10 Outpatient Sobia [facility] [id number] Univers 09:00:00 09:45:03 BELINDA zuleta [facility] 2021-10-10 2021-10-10 Office Ginger, [facility] [id number] Univers 09:00:00 09:45:03 Visit Belinda PATINO [id number] ity [place] [phone] [facility] 059 [facility] 2021-10-10 2021-10-10 [facility] [id number] Univers 09:00:00 09:45:03 BELINDA roger peralta song [facility] 2021-10-10 2021-10-10 Orders Doctor JERO [id number] Univers 00:00:00 00:00:00 Only Unassigned, SHAWN [id number] ity of [place] [facility] [id number] [place] [phone] [facility] 009 [place] 2021-07-04 2021-07-04 Office Clinic, Td Gi Liver TDCJ 1.2.8 40.114 [id number] Univers 13:00:00 13:20:00 Visit [place] [facility] [id number] [id number] [phone] [facility] 341 Branch 2021-03-17 2021-03-17 Orders Doctor JERO 1.2.840.114 [id number] Univers 00:00:00 00:00:00 Only Unassigned, SHAWN [id number] ity of [place] [facility] 4.2.7.2.686 [place] [phone] [facility] 009 Branch 2021-02-26 2021-02-26 Office Cardiology, Td TDCJ 1.2.840.11 [id number] Univers 11:14:35 15:46:41 Visit Delonte Fitzgerald Paul [facility] [id number] .10 [id number] [id number] [facility] 340 Branch 2021-02-21 2021-02-22 Hospital ALLI [place] 1.2.840.114 [id number] Univers 06:00:00 03:26:00 Encounter [facility] [id number] [id number] [id number] [facility] 105 Branch 2021-02-21 2021-02-21 [facility] Barbosa TDCJ [id number] Univers 12:30:00 23:59:00 Encounter [facility] [id number] [id number] [phone] [facility] 844 Branch 2021-02-21 2021-02-21 [facility] 1.2.840 .114 [id number] Univers 07:33:52 12:55:01 [facility] [id number] [place] [phone] [facility] 340 Branch 2021-02-10 2021-02-10 [facility] LEANNE [id number] Univers 07:15:37 23:59:00 Encounter Melba TDC[facility] LAB [id number] [place] [id number] [facility] 806 Branch 2021-02-03 2021-02-03 Office Cardiology, [facility] TDCJ 1.2.840.11 [id number] Univers 10:00:37 10:15:37 Visit Ahmet Dominguez [facility] [id number] [place] [phone] [facility] 340 Branch 2021-01-27 2021-01-28 [facility], TDCJ 1.2.840.114 [id number] Univers 06:00:00 04:03:00 Encounter [facility] [id number] [place] [phone] [facility] 105 Branch 2021-01-27 2021-01-27 [facility], TDCJ 1.2.840.114 [id number] Univers 08:28:53 23:59:00 Encounter [facility] [id number] [place] [id number] [facility] 809 Branch 2021-01-27 2021-01-27 Office Surgery, Tdc Oral TDCJ 1.2.840. 114 [id number] Univers 07:05:12 16:04:42 Visit Hazel [facility] [id number] [place] [phone] [facility] 214 Branch 2021-01-21 2021-01-22 Hospital Dorene TDCJ 1.2.840.114 [id number] Univers 06:00:00 03:50:00 Encounter [facility] [id number] [place] [phone] [facility] 105 Branch 2021-01-21 2021-01-21 Office Dermatology, [facility] TDCJ 1.2.840.1 [id number] Univers 12:03:40 14:55:23 Visit Adam Catherine [facility] [id number] [place] [phone] [facility] 217 Branch 2021-01-06 2021-01-06 Orders Doctor JERO 1.2.840.114 [id number] Univers 00:00:00 00:00:00 Only Unassigned, SHAWN 350.1.13.10 ity of [place] [facility] 4.2.7.2.686 [place] [phone] [facility] 009 Branch 2020-12-25 2020-12-27 Hospital Radha TDCJ 1.2.840.114 [id number] Univers 23:28:00 17:40:00 Encounter [facility] [id number] [place] [phone] [facility] 006 Branch 2020-12-25 2020-12-25 Emergency ER Germán, STLSJX STLSJX [id number] STLSJX 09:42:00 09:42:00 Rafiq [id number] 2020-12-24 2020-12-25 [facility] Radha, TDCJ 1.2.840.114 [id number] Univers 14:01:00 05:00:00 Encounter [facility] [id number] ity of 4.2.7.2.686 Maryanne solo [phone] [facility] 105 Branch 2020-12-17 2020-12-24 [facility] Annamarie Steele TDCJ 1.2.840.11 [id number] Univers 01:26:00 14:00:00 Encounter Jaime [facility] 350 .1.13.10 ity of Rikki Casey 4.2.7.2.686 [place] Radha Anthony [id number] [place] [address] Branch 2020-12-16 2020-12-16 Emergency ER Osvaldo, STLSJX STLSJX [id number] STLSJX 13:50:00 13:50:00 Gabriel [id number] 2020-07-16 2020-07-16 Emergency ER Nabeel, STLSJX STLSJX [id number] STLSJX 08:36:00 08:36:00 Ulises -[id number] 2019-11-22 2019-11-22 Outpatient Sobia [facility] [id number] Univers 11:40:00 11:40:00 BELINDA duran o f [facility] Results Test Description Test Time Test Comments Results Result Sourc e Comments CT Chest W Con Name: ARGENTINA SALINAS : 1965 Sex: M [facility] Pt Name: ARGENTINA SALINAS [address] [facility] Phys: [place] [address] : 1965 Age: 55 SEX:M Exam Date: 12/16/20 Status: REG ER Acct: [id number] Loc: [facility] Pt Unit #: [id number] Report #: [id number] CC: Gabriel Riley MD CAT SCAN REPORT Order # Category/Exam [id number] CT/CT Chest W Con ([id number]): . Results EXAM: Chest CT with contrast [...] ARGENTINA SALINAS : 1965 Sex: M [facility] Pt Name: ARGENTINA SALINAS [address] Phys: [place] [address] : 1965 Age: 55 SEX:M Exam Date: 07/16/20 Status: REG ER Acct: [id number] Loc: [facility] Pt Unit #: [id number] Report #: [id number] CC: Ulises Lees MD IMAGING SERVICES REPORT Order # Category/Exam [id number] RAD/XR Chest 1 View Portable ([id number]): . Results EXAM: Chest one view: HISTORY: [...]
[2022-06-19] MEDS ORDERED: NA CHLORIDE 0.9% 1,000 ML ONE (12:29)
[2022-06-19] MEDS ORDERED: MAGNESIUM SULFATE 1 gm IVPB 1 GM/100 ML BAG IV ONE (12:29)
[2022-06-19 12:47] LABS: Absolute Lymphocytes (CBC) 1.4 K/uL (0.7-4.9); Hematocrit 49.3 % (39.6-49.0); Lymphocytes % 9.7 % (15.3-44.8); MCV 91.9 fL (80-100); MPV 7.9 fL (7.6-11.3); RBC Red Blood Cell Count 5.37 M/uL (4.33-5.43)
[2022-06-19 12:57] LABS: Protime INR 1.7
[2022-06-19 13:12] LABS: SARS-CoV-2 Antigen Rapid Res Negative (Negative)
[2022-06-19 13:26] LABS: Potassium 4.5 mmol/L (3.5-5.1)
[2022-06-19 13:27] LABS: Troponin High Sensitivity 85.4 pg/mL (<58.9)
[2022-06-19 13:30] LABS: Blood Gas Oxyhemoglobin 88.4 % (94-97); Blood O2 Saturation 90.4 % (92-98.5)
[2022-06-19] MEDS ORDERED: FUROSEMIDE 100 MG/10 ML VIAL IV ONE (13:41)
--- NOTE | 2022-06-19 13:42 | RAD REPORT ---
EXAM DESCRIPTION: RADChest Single View06/19/2022 1:03 pm CLINICAL HISTORY: s/p code. Post intubation. COMPARISON: Head C Spine Mpr Wo Con dated 06/09/2022bdomen 1 View (KUB) dated 03/08/2022; Chest Sing le View dated 03/07/2022; Chest Single View dated 12/03/2021; Chest Single View dated 09/29/2018 TECHNIQUE: Portable AP view of the chest. FINDINGS: Developing and progressive centrally predominant right more than left alveolar opacities t hroughout the lungs. Prominence of the central vascular markings. Endotracheal tube tip terminates 4. 9 centimeter above the charissa. Enteric tube courses below the lower field margin. Left chest wall pac er/ AICD in place. Defibrillator pad along the left lower chest wall somewhat limits evaluation. Stab le moderate cardiomegaly. No pneumothorax or effusion. The mediastinal contours are otherwise unchang ed. IMPRESSION: Developing and progressive right more than left centrally predominant alveolar opacities with stable cardiomegaly. Findings may reflect pneumonitis/aspiration, and/or pulmonary edema.
--- NOTE | 2022-06-19 14:49 | RAD REPORT ---
EXAM DESCRIPTION: CT - Chest For Pe Angio - 06/19/2022 2:03 pm CLINICAL HISTORY: sob, post CPR COMPARISON: Chest Abd Pelvis Wo Con dated 03/08/2022; Chest For Pe Angio dated 09/22/2017; CTANGIO CH EST FOR PE dated 01/23/2009; Chest Single View dated 06/19/2022 TECHNIQUE: Thin axial CT images of the chest were obtained following administration of 95 mL Isovue 370 IV contrast. Multiplanar reconstructions, and maximum intensity projection reconstructions were g enerated and reviewed. Exam utilizes a protocol for optimal evaluation of pulmonary arterial tree. All CT scans are performed using dose optimization technique as appropriate and may include automated exposure control or mA/KV adjustment according to patient size. FINDINGS: Extensive streak artifact related to external wires and acute pain, as well as arm positio anil and left chest single lead pacer limits evaluation. Pulmonary arteries are normal. No emboli or other suspicious finding. No acute or significant aorta f indings. Marked cardiomegaly. No pericardial effusion. Endotracheal tube terminates in the mid thoracic trache a. Enteric tube courses into the stomach, with its tip along the posterior aspect of the fundus. Bilateral small layering pleural effusions, larger on the right. Extensive alveolar and ground-glass opacities, more pronounced throughout the right lung, with mild interlobular septal thickening , and dependent segmental and subsegmental atelectatic changes with some air bronchograms in the right uppe r and lower lobes. No pneumothorax. No appreciable pleural thickening. No abnormal mediastinal or hilar masses or lymphadenopathy seen. No chest wall mass or abnormal axill iary lymphadenopathy. IMPRESSION: No evidence of acute central pulmonary emboli. Marked cardiomegaly, bilateral patchy alveolar and ground-glass opacities with background interlobula r septal thickening, and small effusions. Findings may reflect congestive heart failure with cardioge magda pulmonary edema in the appropriate clinical setting. Superimposed pneumonia cannot be entirely ex cluded. Other findings as above.
--- NOTE | 2022-06-19 14:53 | RAD REPORT ---
EXAM DESCRIPTION: CT - Head Brain Wo Cont - 06/19/2022 2:03 pm CLINICAL HISTORY: CPR COMPARISON: Head Brain Wo Cont dated 09/29/2018; Head Brain Wo Cont dated 08/20/2017 TECHNIQUE: Noncontrast head CT images ad were obtained without IV contrast. Multiplanar reformats we re generated and reviewed. All CT scans are performed using dose optimization technique as appropriate and may include automated exposure control or mA/KV adjustment according to patient size. FINDINGS: No intracranial hemorrhage, mass, or edema. Midline structures are unremarkable. Normal ventricular caliber for age. Small region of encephalomalacia along the left frontal sulci, stable. Eng-white matter differentiat ion is otherwise preserved, without evidence of acute infarct. No abnormal extra-axial fluid collecti ons. Moderate paranasal sinus mucosal thickening with bilateral maxillary sinus air-fluid levels. The keena ent is intubated. No acute bony findings. IMPRESSION: No evidence of an acute intracranial process. Stable small left frontal region of encep halomalacia suggestive of sequelae of remote ischemia.
[2022-06-19] MEDS ORDERED: PIPERACIL/TAZO 3.375 GM VIAL IV ONE (15:07)
[2022-06-19] MEDS ORDERED: NA CHLORIDE 0.9% 100 ML ONE (15:07)
--- NOTE | 2022-06-19 15:25 | P.HP ---
Certification for Inpatient Patient admitted to: Inpatient With expected LOS: >2 Midnights Patient will require the following post-hospital care: None Practitioner: I am a practitioner with admitting privileges, knowledge of patient current condition, hospital course, and medical plan of care. Services: Services provided to patient in accordance with Admission requirements found in Title 42 Section 412.3 of the Code of Federal Regulations <RusselElvis - Last Filed: 06/19/22 17:49> Patient History Date of Service: 06/19/22 Primary Care Provider: unknown Reason for admission: S/P cardiac arrest History of Present Illness: Patient is a 56-year-old male with a past medical history significant for hypertension, hep C, atrial fibrillation, hyperlipidemia, CHF and noncomplaince with therapy due to financial difficulties. Limited history due to patient being intubated. Patient was brought in via EMS, per EMS patient lost pulse for 2 to 3 minutes. They attempted to intubate the patient and the video but were unsuccessful. Patient was intubated in the ER and cardioverted into sinus rhythm. Patient was evaluated in the ER on the ventilator at 100% with a PEEP of 12 and rate of 20. Per lorne review, he sees a line and frame poler in [place]. He has been admitted to this facility multiple times for a.fib with rvr and chf. A recent echo shows an EF of 25%. His labs were significant for pH 7.05 PCO2 78.8 HCO3 20.5 sodium 129 anion gap 16.5 creatinine 1.43 glucose 200 troponin 85.4 BNP 58 439, lactic 4.4. Patient will be admitted under the care of Dr. Caceres. Cardiology, pulmonology will be consulted for further evaluation and recommendations. - Past Medical/Surgical History Diabetic: No -: chf -: A-fibb 2006 -: pleural effusion -: clot "went away""atrium in heart attached to the lead of my device" -: Hep C -: HTN -: ICP left chest wall -: umbilical hernia - Family History Mother -: Heart disease, Cancer Father -: Cancer Sister -: Heart disease - Social History Alcohol use: Yes CD- Drugs: No Caffeine use: No Place of Residence: Home <Elvis Goode - Last Filed: 06/19/22 17:49> Date of Service: 06/19/22 <austin caceres - Last Filed: 06/19/22 18:20> Allergies codeine Adverse Reaction (Intermediate, Verified 08/20/17 16:14) Hives/Rash Home Medications: Amiodarone HCl [Cordarone*] 200 mg PO BID #60 tab 03/10/22 Apixaban [Eliquis] 5 mg PO BID #60 tab 03/10/22 Digoxin [Lanoxin*] 0.125 mg PO DAILY #30 tab 03/10/22 Furosemide [Lasix*] 40 mg PO DAILY #30 tab 03/10/22 Losartan Potassium [Cozaar] 25 mg PO DAILY #30 tab 03/10/22 Spironolactone [Aldactone*] 25 mg PO BID #60 tab 03/10/22 Review of Systems is unable to be obtained <Elvis Goode - Last Filed: 06/19/22 17:49> Physical Examination - Vital Signs Blood Pressure: 115/101 Pulse: 110 Respirations: 20 Pulse Ox (%): 91 - Physical Exam General: Other (intubated) HEENT: Atraumatic Neck: Supple Respiratory: Diminished Cardiovascular: No edema Capillary refill: <2 Seconds Gastrointestinal: Normal bowel sounds Musculoskeletal: No clubbing, No swelling Integumentary: No rashes, No breakdown Neurological: Other (intubated) Lymphatics: No axilla or inguinal lymphadenopathy - Studies Laboratory Data (last 24 hrs) 06/19/22 12:15: PT 18.7 H, INR 1.70 06/19/22 12:15: WBC 14.40 H, Hgb 15.5, Hct 49.3 H, Plt Count 266 06/19/22 12:15: Sodium 129 L, Potassium 4.5, BUN 16, Creatinine 1.43 H, Glucose 200 H <Elvis Goode - Last Filed: 06/19/22 17:49> - Studies Laboratory Data (last 24 hrs) 06/19/22 12:15: PT 18.7 H, INR 1.70 06/19/22 12:15: WBC 14.40 H, Hgb 15.5, Hct 49.3 H, Plt Count 266 06/19/22 12:15: Sodium 129 L, Potassium 4.5, BUN 16, Creatinine 1.43 H, Glucose 200 H <austin caceres - Last Filed: 06/19/22 18:20> Assessment and Plan - Plan Assessment Aspiration pneumonia vs Pulmonary edema A-fib RVR NSTEMI Status post cardiac arrest/ cardioversion Acute on chronic diastolic or systolic CHF exacerbation HTN Defibrillator presence History of hepatitis C Plan Aspiration pneumonia vs Pulmonary edema Continue IV antibiotics Continue nebulizer treatments Patient currently intubated Pulmonology consulted, recommendations appreciated A. fib with RVR Continue IV Metoprolol, resume home meds when appropriate Last Echocardiogram EF 25% Cardiology consulted, recommendations appreciated Continue Eliquis Status post cardiac arrest/ cardioversion Patient intubated Cardiology consulted Acute on chronic diastolic or systolic CHF exacerbation Last Echocardiogram EF 25% Continue diuresis with Lasix. Daily weight and strict I/O. Hypertension Poorly controlled. Continue home medications and Metoprolol as needed. Defibrillator presence. Telemetry to monitor for any malignant arrhythmia Continue supportive care. History of hepatitis C. Status unknown. Continue supportive care. DVT prophylaxis with Eliquis Code Status- Full code Discharge Plan: Home Plan to discharge in: Greater than 2 days - Advance Directives Does patient have a Living Will: No Does patient have a Durable POA for Healthcare: No - Code Status/Comfort Care Code Status Assessed: Yes (Full code) Critical Care: Yes Time Spent Managing Pts Care (In Minutes): 70 <Elvis Goode - Last Filed: 06/19/22 17:49> Physician Review: Patient Assessed, Agree with Above Assessment and Plan Physician Review Additional Text: Patient seen and examined. History of systolic heart failure-advanced with EF of 20 to 25%, presence of AICD Atrial fibrillation with RVR CT chest results reviewed-pulmonary edema versus pneumonia. Patient intubated and on mechanical ventilation. Unresponsive. Reported brief asystole. Plan: Aggressive antibiotics-IV cefepime and vancomycin, add Flagyl. BP is stable IV Lasix Monitor BP closely. Patient has been on amiodarone and Eliquis for A-fib in the past Start amiodarone drip for A-fib with RVR. Full dose Lovenox. NG tube to intermittent suction No acute CVA on CT scan Neurochecks. Elevated lactate likely secondary to transient asystole and severe heart failure. Respiratory acidosis CO2 retention. Mechanical ventilation. Blood cultures. Critical care time spent managing pulmonary edema, respiratory failure and pneumonia: 42 minutes. <austin caceres - Last Filed: 06/19/22 18:20>
[2022-06-19] MEDS ORDERED: NA CHLORIDE 0.9% 1,000 ML IV SCH (16:00)
[2022-06-19] MEDS ORDERED: PIPER TAZO 3.375 GM in NA CHLORIDE 0.9% 100 ML IV SCH (18:00)
[2022-06-19] MEDS: FUROSEMIDE 40 MG/4 ML VIAL IV SCH (18:10)
[2022-06-19 18:11] LABS: Arterial Blood Carboxyhemoglob 1.2 % (0-1.5); Blood Gas Oxyhemoglobin 90.1 % (94-97); Blood O2 Saturation 92.2 % (92-98.5)
[2022-06-19] MEDS: AMIODARONE HCL 900 MG in Dextrose 5%-Water 482 ML IV SCH (18:23)
[2022-06-19] MEDS: FENTANYL CITR 100 MCG/2 ML IV PRN (18:50)
[2022-06-19 19:07] LABS: Albumin 2.6 g/dL (3.4-5.0); Bilirubin Direct 1.2 mg/dL (0-0.2); Bilirubin Total 2.2 mg/dL (0.2-1.0); Protein, Total 6.3 g/dL (6.4-8.2)
[2022-06-19 19:20] LABS: Magnesium 2.3 mg/dL (1.6-2.4)
[2022-06-19] MEDS: ALBUTEROL 2.5 MG/3 ML NEB SOL NEB SCH (19:50)
[2022-06-19] MEDS ORDERED: APIXABAN 5 MG TABLET PO SCH (21:00)
[2022-06-19] MEDS: PIPER TAZO 3.375 GM in NA CHLORIDE 0.9% 100 ML IV SCH (21:19)
[2022-06-19] MEDS: MUPIROCIN 2% OINT 22GM TUBE TOP SCH (21:20)
[2022-06-19] MEDS: ENOXAPARIN 100 MG/ML SYR SQ SCH (21:20)
[2022-06-19] MEDS: MIDAZOLAM HCL 2 MG/2 ML INJ IV PRN (21:25)
[2022-06-19 23:53] LABS: Arterial Blood Carboxyhemoglob 1.1 % (0-1.5); Blood Gas Oxyhemoglobin 95.7 % (94-97); Blood O2 Saturation 97.9 % (92-98.5)
[2022-06-20] MEDS: FENTANYL CITR 100 MCG/2 ML IV PRN ×5 (00:12→20:51)
[2022-06-20] MEDS: ALBUTEROL 2.5 MG/3 ML NEB SOL NEB SCH ×3 (01:45→14:00)
[2022-06-20] MEDS: PIPER TAZO 3.375 GM in NA CHLORIDE 0.9% 100 ML IV SCH ×2 (03:00→08:05)
[2022-06-20] MEDS: MIDAZOLAM HCL 2 MG/2 ML INJ IV PRN ×5 (05:00→22:19)
[2022-06-20 05:53] LABS: Absolute Lymphocytes (CBC) 0.6 K/uL (0.7-4.9); Hematocrit 49.1 % (39.6-49.0); Lymphocytes % 3.7 % (15.3-44.8); MCV 89.8 fL (80-100); MPV 8.3 fL (7.6-11.3); RBC Red Blood Cell Count 5.47 M/uL (4.33-5.43)
[2022-06-20] MEDS: D5W 1,000 ML IV SCH (05:59)
[2022-06-20 06:11] LABS: BUN Blood Urea Nitrogen 23 mg/dL (7-18); Bicarbonate 25 mmol/L (21-32); Glomerular Filtration Rate 52 ml/min (=/>90); Glucose Level 86 mg/dL (74-106); HDL Cholesterol 11 mg/dL (40-60); LDL Cholesterol, Calculated 26 mg/dL (<130); Potassium 4.6 mmol/L (3.5-5.1); Sodium Level 134 mmol/L (136-145)
[2022-06-20 08:05] LABS: Blood Morphology Comment NOT SEEN (NOT SEEN); Platelet Estimate ADEQ
[2022-06-20] MEDS: FUROSEMIDE 40 MG/4 ML VIAL IV SCH ×2 (08:05→17:22)
[2022-06-20 08:06] LABS: Dohle Bodies PRESENT
[2022-06-20] MEDS: ENOXAPARIN 100 MG/ML SYR SQ SCH ×2 (08:06→20:39)
[2022-06-20] MEDS: MUPIROCIN 2% OINT 22GM TUBE TOP SCH ×2 (09:00→20:32)
[2022-06-20] MEDS ORDERED: METOPROLOL TARTRATE 5 MG/5 ML INJ IV ONE (09:55)
[2022-06-20] MEDS: METOPROLOL TARTRATE 5 MG/5 ML INJ IV PRN ×3 (09:57→21:55)
--- NOTE | 2022-06-20 10:44 | P.CNS ---
Date of Consult: 06/20/22 Reason for Consult: Respiratory failure Primary Care Provider: unknown Chief Complaint: S/P cardiac arrest History of Present Illness: Patient is 57 years of age admitted with cardiac arrest he has a history of A- fib in addition to hepatitis C patient is AN ALCOHOLIC noncompliant with medication history of A-fib got worse over the past 2 days currently patient is unresponsive on a ventilator adult extremities with slight jerking movement on the right side difficulty intubating him in the field currently has fast A-fib on amiodarone chest x-ray shows severe bilateral pneumonia Allergies codeine Adverse Reaction (Intermediate, Verified 08/20/17 16:14) Hives/Rash Home Medications: Amiodarone HCl [Cordarone*] 200 mg PO BID #60 tab 03/10/22 Apixaban [Eliquis] 5 mg PO BID #60 tab 03/10/22 Digoxin [Lanoxin*] 0.125 mg PO DAILY #30 tab 03/10/22 Furosemide [Lasix*] 40 mg PO DAILY #30 tab 03/10/22 Losartan Potassium [Cozaar] 25 mg PO DAILY #30 tab 03/10/22 Spironolactone [Aldactone*] 25 mg PO BID #60 tab 03/10/22 - Past Medical/Surgical History Diabetic: No -: chf -: A-fibb 2006 -: pleural effusion -: clot "went away""atrium in heart attached to the lead of my device" -: Hep C -: HTN -: ICP left chest wall -: umbilical hernia - Family History Mother Medical History: Heart disease, Cancer Father Medical History: Cancer Sister History Unknown: Yes Medical History: Heart disease - Social History Smoking Status: Current every day smoker Alcohol use: Yes CD- Drugs: No Caffeine use: No Place of Residence: Home Review of Systems is unable to be obtained Physical Examination Temp Pulse Resp BP Pulse Ox 98 F 191 H 30 H 118/90 100 06/20/22 04:00 06/20/22 09:57 06/20/22 06:00 06/20/22 09:57 06/20/22 06:00 General: Unresponsive Cardiovascular: No edema, Other (Unable to feel peripheral pulses multiple extremities protal edema) Gastrointestinal: Hypoactive Musculoskeletal: No clubbing, No swelling Laboratory Data (last 24 hrs) 06/19/22 12:15: PT 18.7 H, INR 1.70 06/19/22 12:15: WBC 14.40 H, Hgb 15.5, Hct 49.3 H, Plt Count 266 06/19/22 12:15: Sodium 129 L, Potassium 4.5, BUN 16, Creatinine 1.43 H, Glucose 200 H - Problems (1) Respiratory failure Current Visit: Yes Status: Acute Plan: Patient is 57 years of age alcoholic history of A-fib admitted with bilateral pneumonia respiratory failure may have had a cardiac arrest in the field unable to intubate him may have hypoxic encephalopathy x-ray shows bilateral pneumonia patient has marked cardiomegaly abnormal renal function elevated white count oxygenation satisfactory plan to titrate his sat down to 95% CT scan abdomen on admission no acute changes pupils are constricted sluggish no spontaneous movements myoclonic jerks on the right leg more prominent positive plantar reflex use mottling of the skin prognosis is poor Qualifiers: Chronicity: unspecified
[2022-06-20] MEDS ORDERED: AMIODARONE HCL 150 MG in D5W 100 ML IV STA ×2 (10:54→11:24)
[2022-06-20] MEDS: THIAMINE 200 MG/2 ML INJ IVP SCH ×2 (10:59→20:39)
[2022-06-20] MEDS ORDERED: THIAMINE 200 MG/2 ML INJ IVP SCH (11:00)
[2022-06-20] MEDS ORDERED: DIGOXIN 0.25 MG/ML AMP IV SCH (11:00)
[2022-06-20] MEDS ORDERED: VANCOMYCIN 2.5 GM in NA CHLORIDE 0.9% 500 ML IVPB ONE (11:00)
[2022-06-20] MEDS: AMIODARONE HCL 900 MG in Dextrose 5%-Water 482 ML IV SCH ×2 (11:48→16:24)
--- NOTE | 2022-06-20 12:12 | P.PN ---
Subjective Date of Service: 06/20/22 Primary Care Provider: unknown Chief Complaint: S/P cardiac arrest Patient remained unresponsive. He still in atrial fibrillation with rapid ventricular rate. On mechanical ventilation, 70% FiO2. Nursing staff report pink frothy tracheal secretions. No recorded fever. Physical Examination - Vital Signs Temperature: 96.5 F Blood Pressure: 109/67 Pulse: 153 Respirations: 30 Pulse Ox (%): 100 - Physical Exam General: Unresponsive HEENT: Other (Mechanical ventilation) Neck: JVD not distended Respiratory: Crackles/rales (Bilateral), Other (Bilateral upper airway transmitted sounds) Cardiovascular: Normal S1 S2, Irregular heart rate/rhythm Capillary refill: <2 Seconds Gastrointestinal: Soft and benign, Non-distended Musculoskeletal: No swelling, No warmth Integumentary: No rashes, No cyanosis Neurological: Other (Unresponsive, flinches all extremities to pain.) Lymphatics: No axilla or inguinal lymphadenopathy - Studies Laboratory Data (last 24 hrs) 06/19/22 12:15: PT 18.7 H, INR 1.70 06/19/22 12:15: WBC 14.40 H, Hgb 15.5, Hct 49.3 H, Plt Count 266 06/19/22 12:15: Sodium 129 L, Potassium 4.5, BUN 16, Creatinine 1.43 H, Glucose 200 H Microbiology Data (last 24 hrs): 06/19/22 12:40 Blood - Blood Gram Stain - Final Assessment And Plan - Plan Aspiration pneumonia vs Pulmonary edema Checks x-ray infiltrate looks denser than fluid and suspect ARDS/pneumonia Continue IV antibiotics-cefepime and vancomycin. Follow blood cultures. Continue IV Lasix for 1 more day Continue nebulizer treatments Patient currently intubated Pulmonology input appreciated. A. fib with RVR Patient started on amiodarone drip and full dose level Last Echocardiogram EF 25% Cardiology consulted. Dr. Brasher recommended additional amiodarone bolus and digoxin for uncontrolled A-fib Status post cardiac arrest/ cardioversion Patient intubated Cardiology consulted Patient unresponsive from yesterday and only flinches to pain. There is reports of difficulty intubating him on the field and suspect anoxic encephalopathy Continue neuro checks. Acute on chronic systolic CHF exacerbation Last Echocardiogram EF 25% Continue diuresis with Lasix. Daily weight and strict I/O. Hypertension Poorly controlled. Continue home medications and Metoprolol as needed. Defibrillator present. Telemetry to monitor for any malignant arrhythmia Continue supportive care. History of hepatitis C. Status unknown. Continue supportive care. Chronic alcoholism Start IV thiamine Patient currently getting intermittent sedation with fentanyl. Monitor for alcohol withdrawal Acute respiratory failure with hypoxia and hypercapnia Mechanical ventilation NG tube is in place Start NG tube feeding DVT prophylaxis with Lovenox Code Status- Full code Prognosis is guarded.
[2022-06-20] MEDS ORDERED: VITAL AF 1,000 ML BOT FT SCH (14:00)
[2022-06-20] MEDS ORDERED: ALBUTEROL 2.5 MG/3 ML NEB SOL NEB PRN (15:51)
[2022-06-20 16:50] LABS: Bilirubin Total 3.1 mg/dL (0.2-1.0); Potassium 4.1 mmol/L (3.5-5.1); Protein, Total 5.5 g/dL (6.4-8.2)
[2022-06-20 17:40] LABS: Magnesium 1.8 mg/dL (1.6-2.4)
[2022-06-20 18:10] LABS: Arterial Blood Carboxyhemoglob 1.1 % (0-1.5); Blood Gas Oxyhemoglobin 93.9 % (94-97); Blood O2 Saturation 95.9 % (92-98.5)
[2022-06-20] MEDS ORDERED: ALBUMIN HUMAN 25% 100 ML IV ONE ×2 (19:00→19:30)
[2022-06-20] MEDS ORDERED: Magnesium Sulfate 2gm IVPB 2 G/50 ML BAG IV ONE (19:41)
[2022-06-20] MEDS: LORazepam 2 MG/ML VIAL IV PRN ×2 (19:55→23:13)
[2022-06-20] MEDS: Meropenem 1,000 MG in NA CHLORIDE 0.9% 100 ML IV SCH (20:39)
--- NOTE | 2022-06-20 21:52 | RAD REPORT ---
EXAM DESCRIPTION: RAD - Chest Single View - 06/19/2022 10:58 pm CLINICAL HISTORY: 57 years Male S/P PICC line insertion COMPARISON: None TECHNIQUE: AP view of the chest was obtained. FINDINGS: Right peripheral catheter is present with the tip seen in the region of the superior vena cava. No pneumothorax. Endotracheal tube is present with the tip seen at the T3-4 level. This is seen 5.9 cm above the charissa. Correlating catheter overlying left heart. Feeding tube is present with the tip seen coursing below the left hemidiaphragm. Cardiac silhouette is enlarged. Central vessels are stearic. Electrodes mid left hemithorax. Ill-defined airspace opacities lung becerra bilaterally right greater than left. No effusion on right. Suspected small effusion on left. No pneumothorax. IMPRESSION: Right PICC line present with tip seen in region of superior vena cava. No pneumothorax . Enlarged heart with extensive bilateral infiltrates right greater than left. Satisfactory tracheal tu be placement. Electronically signed by: Gali Concepcion MD 06/19/2022 11:35 PM [employer] Due to temporary technical issues with the PACS/Fluency reporting system, reports are being signed by the in house radiologists without review as a courtesy to insure prompt reporting. The interpreting radiologist is fully responsible for the content of the report.
[2022-06-21] MEDS: FENTANYL CITR 100 MCG/2 ML IV PRN ×2 (01:13→06:32)
[2022-06-21] MEDS: D5W 1,000 ML IV SCH (03:00)
[2022-06-21] MEDS: LORazepam 2 MG/ML VIAL IV PRN ×3 (04:31→22:00)
[2022-06-21] MEDS ORDERED: VANCOMYCIN 1.75 GM in NA CHLORIDE 0.9% 500 ML IVPB SCH (05:00)
[2022-06-21 05:15] LABS: Absolute Lymphocytes (CBC) 1.1 K/uL (0.7-4.9); Hematocrit 40.9 % (39.6-49.0); Lymphocytes % 7.7 % (15.3-44.8); MCV 87.9 fL (80-100); MPV 7.8 fL (7.6-11.3); RBC Red Blood Cell Count 4.65 M/uL (4.33-5.43)
[2022-06-21 05:29] LABS: Potassium 3.3 mmol/L (3.5-5.1)
[2022-06-21] MEDS: MIDAZOLAM HCL 2 MG/2 ML INJ IV PRN ×2 (06:10→09:58)
[2022-06-21] MEDS: KCL 20 MEQ/100 mL IVPB 20 MEQ/100 ML BAG IV SCH ×2 (06:49→07:32)
[2022-06-21 07:09] LABS: Magnesium 2.1 mg/dL (1.6-2.4); Phosphorus 1.6 mg/dL (2.5-4.9)
[2022-06-21] MEDS ORDERED: POTASSIUM PHOS IN 0.9 % NACL 15 MMOL/250 ML BAG IV ONE (07:45)
[2022-06-21] MEDS: THIAMINE 200 MG/2 ML INJ IVP SCH ×2 (08:45→22:59)
[2022-06-21] MEDS: ENOXAPARIN 100 MG/ML SYR SQ SCH ×2 (08:45→22:58)
[2022-06-21] MEDS: FUROSEMIDE 40 MG/4 ML VIAL IV SCH (08:46)
[2022-06-21] MEDS: Meropenem 1,000 MG in NA CHLORIDE 0.9% 100 ML IV SCH ×2 (08:46→22:59)
[2022-06-21] MEDS: MUPIROCIN 2% OINT 22GM TUBE TOP SCH ×2 (09:00→22:52)
[2022-06-21] MEDS ORDERED: THIAMINE 200 MG/2 ML INJ IVP SCH (09:00)
--- NOTE | 2022-06-21 09:29 | P.PN ---
Subjective Date of Service: 06/21/22 Primary Care Provider: unknown Chief Complaint: S/P cardiac arrest Physical Examination - Vital Signs Temperature: 96.8 F Blood Pressure: 163/78 Pulse: 143 Respirations: 27 Pulse Ox (%): 93 - Studies Microbiology Data (last 24 hrs): 06/19/22 12:40 Blood - Blood Gram Stain - Final Assessment And Plan - Current Problems (Diagnosis) (1) Respiratory failure Current Visit: Yes Status: Acute Plan: Patient is 57 years of age alcoholic history of A-fib admitted with bilateral pneumonia respiratory failure may have had a cardiac arrest in the field unable to intubate him may have hypoxic encephalopathy x-ray shows bilateral pneumonia patient has marked cardiomegaly abnormal renal function elevated white count o xygenation satisfactory plan to titrate his sat down to 95% CT scan abdomen on admission no acute changes pupils are constricted sluggish no spontaneous movements myoclonic jerks on the right leg more prominent positive plantar reflex use mottling of the skin prognosis is poor Qualifiers: Chronicity: unspecified Physician Review: Patient Assessed, Agree with Above Assessment and Plan
[2022-06-21] MEDS: METOPROLOL TAR 50 MG TAB PO SCH ×2 (10:29→22:58)
--- NOTE | 2022-06-21 11:13 | RAD REPORT ---
EXAM DESCRIPTION: RAD - Chest Single View - 06/21/2022 10:43 am CLINICAL HISTORY: pneumonia Chest pain. COMPARISON: Chest Single View dated 06/19/2022; Chest Single View dated 06/19/2022; Abdomen 1 View ([facility]) dated 03/08/2022; Chest Single View dated 03/07/2022 FINDINGS: Portable technique limits examination quality. Tip of the endotracheal tube is above the charissa at the level of the clavicular heads. Enteric tube d escends into the stomach. Right-sided PICC line has tip in the SVC.Bilateral pulmonary opacities have moderately improved since 06/19/2022. Heart size is mildly prominent. IMPRESSION: Moderate improvement in lung aeration since 06/19/2022 study.
[2022-06-21] MEDS: VANCOMYCIN 1.75 GM in NA CHLORIDE 0.9% 500 ML IVPB SCH (11:34)
--- NOTE | 2022-06-21 13:03 | P.PN ---
Subjective Date of Service: 06/21/22 Primary Care Provider: unknown Chief Complaint: S/P cardiac arrest No changes from yesterday Patient remained unresponsive with minimal sedation. He still in rapid atrial fibrillation. On mechanical ventilation, 35 % FiO2. No recorded fever. Physical Examination - Vital Signs Temperature: 96.8 F Blood Pressure: 125/89 Pulse: 140 Respirations: 32 Pulse Ox (%): 93 - Studies Microbiology Data (last 24 hrs): 06/19/22 12:40 Blood - Blood Gram Stain - Final Assessment And Plan - Plan Physical Exam General: Unresponsive HEENT: Mechanical ventilation Neck: JVD not distended Respiratory: Bilateral crackles/rales Bilateral, Bilateral upper airway transmitted sounds. Cardiovascular: Normal S1 S2, Irregular heart rate/rhythm Gastrointestinal: Soft and benign, Non-distended Musculoskeletal: No swelling, No warmth Integumentary: No rashes, No cyanosis Neurological: Unresponsive, no withdrawal to pain today, both eyes deviated upwards Plan: Aspiration pneumonia vs Pulmonary edema Chest x-ray infiltrate looks denser than fluid and suspect ARDS/pneumonia Continue IV antibiotics-meropenem and vancomycin. Blood cultures-no growth to date. Lasix discontinued. Continue nebulizer treatments Patient currently intubated Pulmonary is following.. A. fib with RVR Patient on amiodarone drip and full dose lovenox Last Echocardiogram EF 25% Dr. Brasher cardiology is following and assisting with management Heart rate is uncontrolled on amiodarone drip Oral metoprolol added. Monitor volume status. Status post cardiac arrest/ cardioversion Patient intubated Elevated troponin. Cardiology is following. Patient is not a candidate for cardiac cath at the moment given possible anoxic encephalopathy. Continue neuro checks. Acute on chronic systolic CHF exacerbation Last Echocardiogram EF 25% Lasix on hold. Daily weight and strict I/O. Hypertension Poorly controlled. On metoprolol Defibrillator present. Telemetry to monitor for any malignant arrhythmia Continue supportive care. History of hepatitis C. Treatment status unknown. Continue supportive care. Chronic alcoholism Continue IV thiamine Patient currently getting intermittent sedation with fentanyl. Monitor for alcohol withdrawal Versed as needed Acute respiratory failure with hypoxia and hypercapnia Mechanical ventilation NG tube is in place NG tube feeding DVT prophylaxis with Lovenox Code Status- Full code Prognosis is guarded.
[2022-06-21] MEDS ORDERED: DEXMEDETOMIDINE HCL 200 MCG/2 ML VIAL ONE ×2 (17:45→17:46)
[2022-06-21] MEDS ORDERED: NA CHLORIDE 0.9% 100 ML ONE (17:47)
[2022-06-21] MEDS: DEXMEDETOMIDINE HCL 200 MCG in NA CHLORIDE 0.9% 98 ML IV SCH ×2 (18:07→22:15)
[2022-06-22] MEDS: LORazepam 2 MG/ML VIAL IV PRN ×3 (03:28→18:34)
[2022-06-22] MEDS: DEXMEDETOMIDINE HCL 200 MCG in NA CHLORIDE 0.9% 98 ML IV SCH ×4 (03:28→20:13)
[2022-06-22 05:08] LABS: Absolute Lymphocytes (CBC) 1.3 K/uL (0.7-4.9); Hematocrit 45.1 % (39.6-49.0); Lymphocytes % 8.3 % (15.3-44.8); MCV 89.6 fL (80-100); MPV 7.7 fL (7.6-11.3); RBC Red Blood Cell Count 5.03 M/uL (4.33-5.43)
[2022-06-22 05:25] LABS: Magnesium 2.4 mg/dL (1.6-2.4); Phosphorus 3.7 mg/dL (2.5-4.9); Potassium 4.5 mmol/L (3.5-5.1)
--- NOTE | 2022-06-22 07:40 | RAD REPORT ---
EXAM DESCRIPTION: [facility] Single View06/22/2022 5:32 am CLINICAL HISTORY: Pneumonia COMPARISON: June 10, 2022 FINDINGS: Endotracheal tube has its tip 3.3 centimeters above the level of the aortic arch. PICC paty e in place Feeding tube within the proximal stomach Heart remains enlarged Pacemaker leads in place Minimal worsening in the right and no significant change left pulmonary opacities
[2022-06-22] MEDS: ENOXAPARIN 100 MG/ML SYR SQ SCH ×2 (08:44→20:17)
[2022-06-22] MEDS: Meropenem 1,000 MG in NA CHLORIDE 0.9% 100 ML IV SCH ×2 (08:44→20:16)
[2022-06-22] MEDS: THIAMINE 200 MG/2 ML INJ IVP SCH ×2 (08:46→20:16)
[2022-06-22] MEDS: METOPROLOL TAR 50 MG TAB PO SCH ×2 (09:00→20:17)
[2022-06-22] MEDS: MUPIROCIN 2% OINT 22GM TUBE TOP SCH ×2 (09:08→20:18)
[2022-06-22] MEDS: FENTANYL CITR 100 MCG/2 ML IV PRN ×2 (09:49→17:10)
--- NOTE | 2022-06-22 10:07 | P.PN ---
Subjective Date of Service: 06/22/22 Primary Care Provider: unknown Chief Complaint: S/P cardiac arrest Patient remained unresponsive. Currently on Precedex drip. He is stable on the vent. Heart rate improved. Patient remained in atrial fibrillation. Physical Examination - Vital Signs Temperature: 97.5 F Blood Pressure: 109/59 Pulse: 103 Respirations: 32 Pulse Ox (%): 100 - Studies Microbiology Data (last 24 hrs): 06/19/22 12:40 Blood - Blood Anaerobic Blood Culture - Final Staph Aureus 06/19/22 12:40 Blood - Blood Gram Stain - Final Assessment And Plan - Plan Physical Exam General: Unresponsive HEENT: Mechanical ventilation Neck: JVD not distended Respiratory: Bilateral crackles/rales Bilateral, Bilateral upper airway transmitted sounds. Cardiovascular: Normal S1 S2, Irregular heart rate/rhythm Gastrointestinal: Soft and benign, Non-distended Musculoskeletal: No swelling, No warmth Integumentary: No rashes, No cyanosis Neurological: Unresponsive, no withdrawal to pain today, both eyes deviated upwards Plan: Aspiration pneumonia/ARDS Continue IV antibiotics-meropenem and vancomycin. Blood cultures-no growth to date. Lasix for possible pulmonary edema discontinued. It was ineffective. Continue nebulizer treatments Patient currently intubated Pulmonary is following. A. fib with RVR Patient on amiodarone drip and full dose lovenox Last Echocardiogram EF 25% Dr. Brasher cardiology is following and assisting with management Heart rate is uncontrolled on amiodarone drip Heart rate improved after metoprolol via NG tube was added. Monitor volume status. Status post cardiac arrest/ cardioversion Patient intubated Elevated troponin. Cardiology is following. Patient is not a candidate for cardiac cath at the moment given possible anoxic encephalopathy. Continue neuro checks. Neurology consult to assess current mental status. I discussed DNR with her daughter. Family is yet to make that decision. Acute on chronic systolic CHF exacerbation Last Echocardiogram EF 25% Lasix on hold. Daily weight and strict I/O. Hypertension Blood pressure readings are better On metoprolol Defibrillator present. Telemetry to monitor for any malignant arrhythmia Continue supportive care. History of hepatitis C. Treatment status unknown. Continue supportive care. Chronic alcoholism Continue IV thiamine Patient currently on Precedex drip No signs of alcohol withdrawal Versed as needed Acute respiratory failure with hypoxia and hypercapnia Mechanical ventilation NG tube feeding DVT prophylaxis with Lovenox Code Status- Full code Poor prognosis.
[2022-06-22] MEDS: VANCOMYCIN 1.75 GM in NA CHLORIDE 0.9% 500 ML IVPB SCH (11:11)
[2022-06-22] MEDS ORDERED: VITAL HP 1,000 ML BOT RTH SCH (12:00)
--- NOTE | 2022-06-22 12:30 | P.PN ---
Subjective Date of Service: 06/22/22 Primary Care Provider: unknown Chief Complaint: S/P cardiac arrest No change patient's condition is worsened unresponsive Review of Systems is unable to be obtained Physical Examination - Vital Signs Temperature: 97.5 F Blood Pressure: 109/59 Pulse: 103 Respirations: 32 Pulse Ox (%): 100 - Physical Exam General: Comatose Respiratory: Clear to auscultation bilaterally Cardiovascular: Normal S1 S2, Edema Neurological: Other (Absent plantar reflexes present unresponsive no spontaneous movement) - Studies Microbiology Data (last 24 hrs): 06/19/22 12:40 Blood - Blood Anaerobic Blood Culture - Final Staph Aureus 06/19/22 12:40 Blood - Blood Gram Stain - Final Assessment And Plan - Current Problems (Diagnosis) (1) Respiratory failure Current Visit: Yes Status: Acute Plan: Patient is s/p cardiac arrest on dexmedetomidine drip tree of alcohol abuse patient has multiorgan failure bilateral pneumonia chest x-ray appearances have improved Staph aureus isolated in the blood sputum cultures ordered prognosis poor unlikely to survive discussed with the family members regarding withdrawal of care likely significant encephalopathy Qualifiers: Chronicity: unspecified (2) Atrial fibrillation with RVR Onset Date: 11/19/17 Current Visit: No Status: Acute Plan: Patient is on amiodarone and metoprolol including Lovenox Physician Review: Patient Assessed, Agree with Above Assessment and Plan
--- NOTE | 2022-06-22 13:13 | EKG ---
Test Date: 2022-06-19 Test Time: 12:27:53 [employer]ing [employer] Operator: LORENZO MEASUREMENT RESULTS: Intervals: Rate: 122 [place]: QRSD: 112 QT: 382 QTc: 544 [place]: P: [place]: QRS: -33 T: 93 INTERPRETIVE STATEMENTS: Atrial fibrillation with rapid ventricular response Left axis deviation Nonspecific T wave abnormality, probably digitalis effect Abnormal ECG Compared to ECG 03/07/2022 16:17:26 Left-axis deviation now present T-wave abnormality now present Right-axis deviation no longer present ST (T wave) deviation no longer present Electronically Signed On 06-22-22 13:08:04 CDT by Mic Brasher
--- NOTE | 2022-06-22 13:13 | EKG ---
Test Date: 2022-06-19 Test Time: 13:33:19 Automotive Consultant: BABATUNDE MEASUREMENT RESULTS: Intervals: Rate: 120 [place]: 152 QRSD: 106 QT: 314 QTc: 443 [place]: P: [place]: 152 QRS: 25 T: 152 INTERPRETIVE STATEMENTS: Sinus tachycardia with premature atrial complexes T wave abnormality, consider lateral ischemia Abnormal ECG Compared to ECG 06/19/2022 12:27:53 Atrial premature complex(es) now present Possible ischemia now present Atrial fibrillation no longer present Left-axis deviation no longer present T-wave abnormality still present Electronically Signed On 06-22-22 13:07:53 CDT by Mic Brasher
--- NOTE | 2022-06-22 13:49 | ECHO ---
HEIGHT: 5 ft 9 in WEIGHT: 213 lb 0 oz DATE OF STUDY: 06/22/[address]: Mic Brasher 2-DIMENSIONAL: YES M.MODE: YES DOPPLER: YES COLOR FLOW: YES TDS: PORTABLE: YES DEFINITY: BUBBLE STUDY: DIAGNOSIS: STATUS POST CARDIAC ARREST CARDIAC HISTORY: CATHERIZATION: SURGERY: PROSTHETIC VALVE: PACEMAKER: MEASUREMENTS (cm) DIASTOLIC (NORMALS) SYSTOLIC (NORMALS) IVSd 1.0 (0.6-1.2) LA Diam 4.7 (1.9-4.0) LVEF 27% LVIDd 6.2 (3.5-5.7) LVIDs 5.4 (2.0-3.5) %FS 13% LVPWd 1.1 (0.6-1.2) Ao Diam 3.1 (2.0-3.7) 2 DIMENSIONAL ASSESSMENT: RIGHT ATRIUM: NORMAL LEFT ATRIUM: ENLARGED RIGHT VENTRICLE: PACEMAKER LEAD LEFT VENTRICLE: DILATED LEFT VENTRICLE TRICUSPID VALVE: TRICUSPID REGURGITATION (SEVERE) MITRAL VALVE: MODERATE MITRAL REGURGITATION PULMONIC VALVE: MILD PULMONIC INSUFFICIENCY AORTIC VALVE: NORMAL PERICARDIAL EFFUSION: NONE AORTIC ROOT: NORMAL LEFT VENTRICULAR WALL MOTION: SEVERE GLOBAL HYPOKINESIS DOPPLER/COLOR FLOW: SEE BELOW COMMENTS: 1. SEVERELY DEPRESSED LEFT VENTRICULAR EJECTION FRACTION 25-30% 2. LEFT ATRIAL ENLARGEMENT 3. SEVERE GLOBAL HYPOKINESIS 4. MODERATE MITRAL REGURGITATION 5. SEVERE TRICUSPID REGURGITATION WITH PACEMAKER WIRE PRESENT 6. MILD PULMONIC INSUFFICIENCY TECHNOLOGIST: JAELYN ANSARI
[2022-06-22] MEDS: ALBUMIN HUMAN 25% 100 ML IV SCH ×2 (15:47→16:31)
--- NOTE | 2022-06-22 15:55 | CON ---
Date of Consultation: 06/22/2022 Reason For Consultation: Status post cardiac arrest. History Of Present Illness: This is a 57-year-old male with history of hypertension, hepatitis C, at rial fibrillations, dyslipidemia, congestive heart failure, noncompliant apparently with management, presented to the hospital via EMS. Apparently, he had a respiratory arrest and then followed by card iac arrest for about 2 to 3 minutes. The patient is intubated and he was in atrial fibrillation with rapid ventricular response. He was shocked in the emergency room and went back into AFib and then l oaded with amiodarone. Now, his heart rate is running around 100 to 110, blood pressure is on the lo w side. Past Medical History: As outlined above in the HPI. Medications: Refer to reconciliation sheet for detailed list. Allergies: CODEINE. Family History: No premature coronary artery disease. Social History: Apparently, he uses alcohol, does not drink, and it is not clear if he smokes. The patient is not able to answer questions. Review of Systems: The patient is sedated on the ventilator and no distress. All other systems reviewed and they were n egative except for mentioned in the HPI. Physical Examination: Vital Signs: Reviewed. Head and Neck: Pupils are reactive. Intact eye movements. No JVD. No cervical lymphadenopathy. N ignacio is supple. Lungs: Decreased breathing sounds bilaterally. No accessory muscle use or muscle retraction. He is intubated. Heart: Irregularly irregular. No extra sounds. Abdomen: Soft, nontender. Bowel sounds positive. No organomegaly. No masses or hernia. No rigidi ty or rebound. Extremities: No clubbing or cyanosis. Intact pulses. Skin: No rash. Neurologic: He is sedated on the ventilator. Lymph Nodes: No cervical or axillary lymphadenopathy. Investigations: BUN 41, creatinine 1.42, and hemoglobin is 14.3, and his troponin peaked at 206. Assessment And Recommendations: 1.Severe systolic heart failure. Apparently, this is chronic. Has global hypokinesis on the echo, not sure if he had any ischemic workup in the past. Definitely, this needs to be done if the patient did not have an ischemia evaluation; however, he is hemodynamically unstable at this point. Once hi s condition allows, we will plan for possible coronary angiogram if it was not done in the recent pas t. 2.Atrial fibrillation with rapid ventricular response. Heart rate is better, now it is 86. Continu e amiodarone infusion at 0.5 mg/minute and check liver function tests on daily basis while on it. 3.Borderline elevated troponin. This is not an acute coronary syndrome as the elevation of troponin was mild. Recheck troponin now to see the trend. 4.Acute hypoxic respiratory failure. CT PE protocol was negative and this could be a congestive hea rt failure related. He does not look fluid overloaded at this moment. We will monitor carefully. O nce he is extubated, we will obtain a better history and further assess. Complicated case and the roman oakes's prognosis is poor. SR/MODL Voice ID: [id number] Report ID: [id number]
--- NOTE | 2022-06-22 20:24 | P.PN ---
Date of Service: 06/23/22 Subjective: Patient remains unresponsive Mild spontaneous movement of right foot, and blinking no purposeful movements at this time on minimal precedex drip this morning ROS: unable to be obtained Physical Exam: Gen: Unresponsive HEENT: ETT and OG tube in place, Mechanical ventilation CV: irregular rate & rhythm, b/l upper and lower extremity edema Pulm: intubated, on mech ventilation, mild b/l crackles Abd: soft, non-tender, non-distended Skin: annular rash on R flank Neuro: Unresponsive Meneses in place vitals reviewed Problem List: Aspiration pneumonia/ARDS A. fib with RVR Acute respiratory failure with hypoxia and hypercapnia Status post cardiac arrest/ cardioversion Acute on chronic systolic CHF exacerbation Hypertension Defibrillator present History of hepatitis C Chronic alcoholism unclear etiology of cardiac arrest daughter states patient has a defibrillator will get more info and attempt to have it interrogated cardiology consulted, suspect respiratory arrest, as troponin not significantly increased Currently not a candidate for cardiac cath at the moment given possible anoxic encephalopathy recommends ischemic workup once stable MSSA bacteremia continue IV antibiotics ID consulted repeat blood cultures continue tube feeds continue mech ventilation attempt to wean precedex / benzo's to assess neuro function Neuro consulted to assess current mental status - currently unavailable possible etoh withdrawal - significant history of alcohol dependence wean precedex/benzo as tolerated 06/23 AM, pt was on minimal dose, but became tachycardic and coughing after drip stopped; so restarted VTE: lovenox Code: Full Dispo: Poor prognosis reviewed with daughters at bedside code status changed to DNR on 06/23
[2022-06-23] MEDS: DEXMEDETOMIDINE HCL 200 MCG in NA CHLORIDE 0.9% 98 ML IV SCH ×2 (01:44→09:38)
[2022-06-23 06:23] LABS: Absolute Lymphocytes (CBC) 1.5 K/uL (0.7-4.9); Hematocrit 41.2 % (39.6-49.0); Lymphocytes % 15.1 % (15.3-44.8); MPV 8.5 fL (7.6-11.3); RBC Red Blood Cell Count 4.68 M/uL (4.33-5.43)
[2022-06-23 06:42] LABS: Albumin 2.6 g/dL (3.4-5.0); Bilirubin Direct 0.9 mg/dL (0-0.2); Bilirubin Total 2.2 mg/dL (0.2-1.0); Magnesium 2.5 mg/dL (1.6-2.4); Phosphorus 2.2 mg/dL (2.5-4.9); Potassium 3.6 mmol/L (3.5-5.1); Protein, Total 5.7 g/dL (6.4-8.2)
[2022-06-23] MEDS ORDERED: POTASSIUM PHOS IN 0.9 % NACL 15 MMOL/250 ML BAG IV ONE (07:09)
[2022-06-23] MEDS: MUPIROCIN 2% OINT 22GM TUBE TOP SCH ×2 (09:00→20:37)
--- NOTE | 2022-06-23 09:09 | RAD REPORT ---
EXAM DESCRIPTION: RAD - Chest Single View - 06/23/2022 5:20 am CLINICAL HISTORY: pneumonia Chest pain. COMPARISON: Chest Single View dated 06/22/2022; Chest Single View dated 06/21/2022; Chest Single View dated 06/19/2022; Chest Single View dated 06/19/2022 FINDINGS: Portable technique limits examination quality. Tip of the endotracheal tube is above the charissa at the level of the clavicular heads. Enteric tube d escends into the stomach. Right-sided PICC line has tip in the SVC. Bilateral pulmonary opacities hav e mildly improved since yesterday's study.The heart is moderately enlarged. Multi lead pacer/defibril lator device. IMPRESSION: Mild improvement in lung aeration seen since yesterday's study.
[2022-06-23] MEDS: Meropenem 1,000 MG in NA CHLORIDE 0.9% 100 ML IV SCH ×2 (09:12→20:49)
[2022-06-23] MEDS: ENOXAPARIN 100 MG/ML SYR SQ SCH ×2 (09:39→21:12)
[2022-06-23] MEDS: THIAMINE 200 MG/2 ML INJ IVP SCH ×2 (09:39→20:49)
[2022-06-23] MEDS: METOPROLOL TARTRATE 5 MG/5 ML INJ IV PRN ×2 (09:40→23:48)
[2022-06-23] MEDS: METOPROLOL TAR 50 MG TAB PO SCH (09:40)
[2022-06-23] MEDS: AMIODARONE HCL 900 MG in Dextrose 5%-Water 482 ML IV SCH (09:41)
[2022-06-23] MEDS: LORazepam 2 MG/ML VIAL IV PRN ×2 (10:05→22:00)
[2022-06-23] MEDS ORDERED: LORazepam 2 MG/ML VIAL IV ONE (10:40)
[2022-06-23] MEDS: VANCOMYCIN 1.75 GM in NA CHLORIDE 0.9% 500 ML IVPB SCH (11:31)
[2022-06-23] MEDS: FENTANYL CITR 100 MCG/2 ML IV PRN (11:34)
--- NOTE | 2022-06-23 12:28 | P.PN ---
Subjective Date of Service: 06/23/22 Primary Care Provider: unknown Chief Complaint: S/P cardiac arrest/pneumonia Minimal myoclonic movements of the right foot otherwise he continues to remain comatose unresponsive on a ventilator Review of Systems is unable to be obtained Physical Examination - Vital Signs Temperature: 98.6 F Blood Pressure: 125/85 Pulse: 131 Respirations: 22 Pulse Ox (%): 90 - Physical Exam General: Comatose Respiratory: Clear to auscultation bilaterally Cardiovascular: No edema, Regular rate/rhythm Neurological: Other (Patient comatose to reflexes now absent) - Studies Microbiology Data (last 24 hrs): 06/19/22 12:40 Blood - Blood Aerobic Blood Culture - Final Staph Aureus 06/19/22 12:40 Blood - Blood Anaerobic Blood Culture - Final Staph Aureus 06/19/22 12:40 Blood - Blood Gram Stain - Final Assessment And Plan - Current Problems (Diagnosis) (1) Respiratory failure Current Visit: Yes Status: Acute Plan: Most likely the patient has anoxic encephalopathy and weaned off all sedation will need to advance endotracheal tube by 1.5 cm x-ray has improved White count is back to normal cultures are all negative apart from 1 set positive for Staph aureus oxygenation is also satisfactory renal function is also improving gnosis poor as patient is not responding needed EEG neurological consult changed to IV cefazolin liver function tests are also improving Qualifiers: Chronicity: unspecified (2) Atrial fibrillation with RVR Onset Date: 11/19/17 Current Visit: No Status: Acute Plan: Patient is on amiodarone and metoprolol including Lovenox Physician Review: Patient Assessed, Agree with Above Assessment and Plan
[2022-06-23] MEDS: DEXMEDETOMIDINE HCL 400 MCG in NA CHLORIDE 0.9% 196 ML IV SCH ×2 (13:37→23:56)
[2022-06-23] MEDS ORDERED: CEFAZOLIN 1 GM in NA CHLORIDE 0.9% 50 ML IVPB SCH (17:00)
[2022-06-23] MEDS: CEFAZOLIN SODIUM 2 GM in NA CHLORIDE 0.9% 100 ML IVPB SCH (17:06)
--- NOTE | 2022-06-23 20:22 | PN ---
Date of Progress Note: 06/23/2022 Subjective: Seen by bedside. Clinically, he is stable. Review of Systems: He is on the ventilator. Cannot communicate with the patient. He is sedated. Physical Examination: Vital Signs: Reviewed. Head and Neck: Pupils are equal and reactive to light. No JVD. No cervical lymphadenopathy. Neck is supple. Thyroid is not enlarged. Lungs: Rhonchi bilaterally. No accessory muscle use or muscle retraction. Heart: Irregularly irregular. No extra sounds. Abdomen: Soft, nontender. Bowel sounds positive. No organomegaly. No masses or hernia. No rigidi ty or rebound. Extremities: No clubbing or cyanosis. Intact pulses. Skin: No rash. Neurologic: He is sedated, on the vent. Lymph Nodes: No cervical or axillary lymphadenopathy. Investigations: Labs were reviewed. Assessment And Recommendations: 1.Atrial fibrillation with rapid ventricle response. His heart rate is acceptable. If the patient has an NG tube, increase the Lopressor to 50 mg twice a day and switch the amiodarone to oral 200 mg twice a day. If the patient cannot take any medicines by mouth, then to keep the amiodarone at 0.5 m g/minute, but check liver function tests daily. 2.Congestive heart failure, known to have severe systolic heart failure. Had troponin leak, mildly elevated, likely due to the respiratory failure and cardiac arrest. This is likely not coronary elpidio ry disease related. If patient recovers well, we will plan for further management of his atrial fibrillation trying to restore sinus rhythm and reassess th e systolic function after that. SR/MODL Voice ID: [id number] Report ID: [id number]
[2022-06-23] MEDS: METOPROLOL TAR 25 MG TAB PO SCH (21:06)
[2022-06-24] MEDS: CEFAZOLIN SODIUM 2 GM in NA CHLORIDE 0.9% 100 ML IVPB SCH ×3 (00:57→16:52)
[2022-06-24] MEDS: FENTANYL CITR 100 MCG/2 ML IV PRN ×3 (02:32→07:45)
[2022-06-24] MEDS: MIDAZOLAM HCL 2 MG/2 ML INJ IV PRN ×2 (04:39→11:15)
[2022-06-24 05:05] LABS: Absolute Lymphocytes (CBC) 2.4 K/uL (0.7-4.9); Hematocrit 43.4 % (39.6-49.0); Lymphocytes % 17.4 % (15.3-44.8); MCV 87.8 fL (80-100); MPV 9.4 fL (7.6-11.3); RBC Red Blood Cell Count 4.95 M/uL (4.33-5.43)
[2022-06-24] MEDS: METOPROLOL TARTRATE 5 MG/5 ML INJ IV PRN (05:07)
[2022-06-24 05:17] LABS: Albumin 2.5 g/dL (3.4-5.0); Magnesium 2.3 mg/dL (1.6-2.4); Potassium 3.9 mmol/L (3.5-5.1); Protein, Total 6.1 g/dL (6.4-8.2)
--- NOTE | 2022-06-24 06:50 | P.PN ---
Date of Service: 06/24/22 Subjective: Patient remains unresponsive 100.4 fever yesterday afternoon, febrile to 104 this morning unable to wean precedex this morning - becomes very tachycardic moving bilateral feet, not purposeful, unresponsive, and not withdrawing to pain when off precedex for >30min ROS: unable to be obtained Physical Exam: Gen: Unresponsive HEENT: ETT and OG tube in place, Mechanical ventilation CV: irregular rate & rhythm, b/l upper and lower extremity trace to 1+ edema Pulm: intubated, on mech ventilation, mild b/l crackles, R>L Abd: soft, non-tender, non-distended Skin: annular rash on R flank Neuro: Unresponsive, moves b/l feet intermittently / jerking movement Meneses in place vitals reviewed Problem List: Aspiration pneumonia/ARDS A. fib with RVR Acute respiratory failure with hypoxia and hypercapnia Status post cardiac arrest/ cardioversion Acute on chronic systolic CHF exacerbation Hypertension Defibrillator present History of hepatitis C Chronic alcoholism unclear etiology of cardiac arrest daughter states patient has a defibrillator will get more info and attempt to have it interrogated - no family no what type / when/where it was placed cardiology consulted, suspect respiratory arrest, as troponin not significantly increased Currently not a candidate for cardiac cath at the moment given possible anoxic encephalopathy / unstable recommends ischemic workup once stable MSSA bacteremia ID consulted 06/24 recommend stopping merrem, change to doxy - initially considering levaquin but will avoid with afib continue cefazolin repeat blood cultures no growth yet worsening fever no obvious worsening of infection possibly drug related vs brain injury tylenol PRN cooling blanket continue tube feeds continue mech ventilation attempt to wean precedex / benzo's to assess neuro function Neuro consulted to assess current mental status - currently unavailable possible etoh withdrawal - significant history of alcohol dependence wean precedex/benzo as tolerated 06/23 AM, pt was on minimal dose, but became tachycardic and coughing after drip stopped; so restarted 06/24 AM precedex on hold, became tachycardic again; restarted VTE: lovenox Code: DNR Dispo: Poor prognosis reviewed with daughters at bedside on 06/24 code status changed to DNR on 06/23
[2022-06-24] MEDS: LORazepam 2 MG/ML VIAL IV PRN ×2 (07:45→20:33)
--- NOTE | 2022-06-24 08:04 | RAD REPORT ---
[facility] 6[facility]02 [facility] CLINICAL HISTORY: pneumonia COMPARISON: Chest Single View dated 06/23/2022; Chest Single View dated 06/22/2022; Chest Single View dated 06/21/2022; Chest Single View dated 06/19/2022 TECHNIQUE: Portable AP view of the chest. FINDINGS: Endotracheal tube, enteric tube, and right arm PICC are unchanged in position. Progressive patchy right basal airspace opacities. Retrocardiac opacification and central interstitial prominenc e but are again present, stable to slightly progressed since the prior exam. No pneumothorax or effus ion. Stable moderate cardiomegaly. The mediastinal contours are unchanged. IMPRESSION: Progressive airspace opacities in the right lung base, could reflect atelectasis or pneu monia.
--- NOTE | 2022-06-24 08:31 | P.CNS ---
Date of Consult: 06/24/22 Primary Care Provider: unknown Chief Complaint: S/P cardiac arrest/pneumonia History of Present Illness: Patient is a 56-year-old male with a past medical history significant for hypertension, hep C, atrial fibrillation, hyperlipidemia, CHF and noncomplaince with therapy due to financial difficulties. Limited history due to patient being intubated. Patient was brought in via EMS, per EMS patient lost pulse for 2 to 3 minutes. They attempted to intubate the patient and the video but were unsuccessful. Patient was intubated in the ER and cardioverted into sinus rhythm. Patient was evaluated in the ER on the ventilator at 100% with a PEEP of 12 and rate of 20. Per lorne review, he sees a clinical laboratory manager in [place]. He has been admitted to this facility multiple times for a.fib with rvr and chf. A recent echo shows an EF of 25%. His labs were significant for pH 7.05 PCO2 78.8 HCO3 20.5 sodium 129 anion gap 16.5 creatinine 1.43 glucose 200 troponin 85.4 BNP 58 439, lactic 4.4. Patient will be admitted under the care of Dr. Birmingham. ID has been consulted for further IV antibiotics recommendations and management for Bacteremia Allergies codeine Adverse Reaction (Intermediate, Verified 08/20/17 16:14) Hives/Rash Home Medications: Amiodarone HCl [Cordarone*] 200 mg PO BID #60 tab 03/10/22 Apixaban [Eliquis] 5 mg PO BID #60 tab 03/10/22 Digoxin [Lanoxin*] 0.125 mg PO DAILY #30 tab 03/10/22 Furosemide [Lasix*] 40 mg PO DAILY #30 tab 03/10/22 Losartan Potassium [Cozaar] 25 mg PO DAILY #30 tab 03/10/22 Spironolactone [Aldactone*] 25 mg PO BID #60 tab 03/10/22 - Past Medical/Surgical History Diabetic: No -: chf -: A-fibb 2006 -: pleural effusion -: clot "went away""atrium in heart attached to the lead of my device" -: Hep C -: HTN -: ICP left chest wall -: umbilical hernia - Family History Mother Medical History: Heart disease, Cancer Father Medical History: Cancer Sister History Unknown: Yes Medical History: Heart disease - Social History Smoking Status: Current every day smoker Alcohol use: Yes CD- Drugs: No Caffeine use: No Place of Residence: Home Review of Systems is unable to be obtained (patient is sedated on vent support) Physical Examination Temp Pulse Resp BP Pulse Ox 99.9 F 108 H 23 H 142/93 H 91 06/24/22 04:00 06/24/22 06:00 06/24/22 06:11 06/24/22 06:00 06/24/22 06:11 General: Other (sedated) Respiratory: Normal air movement, Other (ETT in place and on vent support) Cardiovascular: Normal S1 S2, Edema (2+ all extremities) Gastrointestinal: Normal bowel sounds, Other (on tube feed) Musculoskeletal: Swelling (2+ all extremities) Integumentary: Tenderness/swelling (2+ all extremities) Neurological: Other (sedated) Urinary: Meneses catheter (yellow and clear) active medications Albuterol Sulfate (Albuterol 2.5 Mg/3 Ml Neb Rekha) 2.5 mg NEB [id number] PRN PRN Reason: WHEEZING Enoxaparin Sodium (Enoxaparin 100 Mg/Ml Syr) 100 mg 1 mg/kg (100 mg) SQ Q12HR ELIS Last Admin: 06/23/22 21:12 Dose: 100 mg Fentanyl Citrate (Fentanyl Citr 100 Mcg/2 Ml) 25 mcg IV Q4H PRN PRN Reason: Pain scale 8-10 (Severe) Last Admin: 06/24/22 06:11 Dose: 25 mcg Amiodarone HCl 900 mg/ (Dextrose) 500 mls @ 0 mls/hr IV CONT ELIS; Protocol Last Admin: 06/23/22 09:41 Dose: 500 mls Meropenem 1,000 mg/ Sodium (Chloride) 100 mls @ 200 mls/hr IV Q12HR ELIS Last Admin: 06/23/22 20:49 Dose: 100 mls Cefazolin Sodium 2 gm/ Sodium (Chloride) 100 mls @ 200 mls/hr IVPB Q8HR ELIS; Protocol Last Admin: 06/24/22 00:57 Dose: 100 mls Dexmedetomidine HCl 400 mcg/ (Sodium Chloride) 200 mls @ 9.662 mls/hr IV TITR ELIS; Protocol Last Titration: 06/24/22 05:50 Dose: 0.4 mcg/kg/hr, 19.3 mls/hr Lorazepam (Lorazepam 2 Mg/Ml Vial) 2 mg IV Q2H PRN PRN Reason: SEDATION Last Admin: 06/23/22 22:00 Dose: 2 mg Metoprolol Tartrate (Metoprolol Tartrate 5 Mg/5 Ml Inj) 5 mg IV Q6H PRN PRN Reason: HR>120 or SBP >160 Last Admin: 06/24/22 05:07 Dose: 5 mg Metoprolol Tartrate (Metoprolol Tar 25 Mg Tab) 25 mg PO BID [facility] Last Admin: 06/23/22 21:06 Dose: 25 mg Midazolam HCl (Midazolam Hcl 2 Mg/2 Ml Inj) 2 mg IV Q2HP PRN PRN Reason: SEDATION IF ATIVAN INEFFECTIVE Last Admin: 06/24/22 04:39 Dose: 2 mg Mupirocin (Mupirocin 2% Oint 22gm Tube) 1 appl TOP BID [facility] Stop: 06/24/22 21:01 Last Admin: 06/23/22 20:37 Dose: 1 appl Nutritional Formula (Vital Hp 1,000 Ml Bot) 0 ml RTH CONT [facility] Sodium Chloride (Flush Normal Saline 10 Ml) 10 ml IV BID [facility] Last Admin: 06/23/22 21:09 Dose: 10 ml Thiamine HCl (Thiamine 200 Mg/2 Ml Inj) 200 mg IVP BID [facility] Last Admin: 06/23/22 20:49 Dose: 200 mg Microbiology 06/19/22 12:40 Blood - Blood Aerobic Blood Culture - Final Staph Aureus 06/19/22 12:40 Blood - Blood Anaerobic Blood Culture - Final Staph Aureus 06/19/22 12:40 Blood - Blood Gram Stain - Final Imagings Data: RAD Chest Single View06/24/2022 FINDINGS: Endotracheal tube, enteric tube, and right arm PICC are unchanged in position. Progressive patchy right basal airspace opacities. Retrocardiac opacification and central interstitial prominence but are again present, stable to slightly progressed since the prior exam. No pneumothorax or effusion. Stable moderate cardiomegaly. The mediastinal contours are unchanged. IMPRESSION: Progressive airspace opacities in the right lung base, could reflect atelectasis or pneumonia RAD - Chest Single View - 06/23/2022 FINDINGS: Portable technique limits examination quality. Tip of the endotracheal tube is above the charissa at the level of the clavicular heads. Enteric tube descends into the stomach. Right-sided PICC line has tip in the SVC. Bilateral pulmonary opacities have mildly improved since yesterday's study.The heart is moderately enlarged. Multi lead pacer/defibrillator device. IMPRESSION: Mild improvement in lung aeration seen since yesterday's study RAD Chest Single View06/22/2022 FINDINGS: Endotracheal tube has its tip 3.3 centimeters above the level of the aortic arch. PICC line in place Feeding tube within the proximal stomach Heart remains enlarged Pacemaker leads in place Minimal worsening in the right and no significant change left pulmonary opacities RAD - Chest Single View - 06/21/2022 FINDINGS: Portable technique limits examination quality. Tip of the endotracheal tube is above the charissa at the level of the clavicular heads. Enteric tube descends into the stomach. Right-sided PICC line has tip in the SVC. Bilateral pulmonary opacities have moderately improved since 06/19/2022. Heart size is mildly prominent. IMPRESSION: Moderate improvement in lung aeration since 06/19/2022 study RAD - Chest Single View - 06/19/2022 FINDINGS: Right peripheral catheter is present with the tip seen in the region of the superior vena cava. No pneumothorax. Endotracheal tube is present with the tip seen at the T3-4 leve l. This is seen 5.9 cm above the charissa. Correlating catheter overlying left heart. Feeding tube is present with the tip seen coursing below the left hemidiaphragm. Cardiac silhouette is enlarged. Central vessels are stearic. Electrodes mid left hemithorax. Ill-defined airspace opacities lung becerra bilaterally right greater than left. No effusion on right. Suspected small effusion on left. No pneumothorax. IMPRESSION: Right PICC line present with tip seen in region of superior vena cava. No pneumothorax. Enlarged heart with extensive bilateral infiltrates right greater than left. Satisfactory tracheal tube placement CT - Chest For Pe Angio - 06/19/2022 FINDINGS: Extensive streak artifact related to external wires and acute pain, as well as arm positioning and left chest single lead pacer limits evaluation. Pulmonary arteries are normal. No emboli or other suspicious finding. No acute or significant aorta findings. Marked cardiomegaly. No pericardial effusion. Endotracheal tube terminates in the mid thoracic trachea. Enteric tube courses into the stomach, with its tip along the posterior aspect of the fundus. Bilateral small layering pleural effusions, larger on the right. Extensive alveolar and ground-glass opacities, more pronounced throughout the right lung, with mild interlobular septal thickening , and dependent segmental and subsegmental atelectatic changes with some air bronchograms in the right upper and lower lobes. No pneumothorax. No appreciable pleural thickening. No abnormal mediastinal or hilar masses or lymphadenopathy seen. No chest wall mass or abnormal axilliary lymphadenopathy. IMPRESSION: No evidence of acute central pulmonary emboli. Marked cardiomegaly, bilateral patchy alveolar and ground-glass opacities with background interlobular septal thickening, and small effusions. Findings may reflect congestive heart failure with cardiogenic pulmonary edema in the appropriate clinical setting. Superimposed pneumonia cannot be entirely excluded RAD Chest Single View06/19/2022 FINDINGS: Developing and progressive centrally predominant right more than left alveolar opacities throughout the lungs. Prominence of the central vascular markings. Endotracheal tube tip terminates 4.9 centimeter above the charissa. Enteric tube courses below the lower field margin. Left chest wall pacer/ AICD in place. Defibrillator pad along the left lower chest wall somewhat limits evaluation. Stable moderate cardiomegaly. No pneumothorax or effusion. The mediastinal contours are otherwise unchanged. IMPRESSION: Developing and progressive right more than left centrally predominant alveolar opacities with stable cardiomegaly. Findings may reflect pneumonitis/aspiration, and/or pulmonary edema CT - Head Brain Wo Cont - 06/19/2022 FINDINGS: No intracranial hemorrhage, mass, or edema. Midline structures are unremarkable. Normal ventricular caliber for age. Small region of encephalomalacia along the left frontal sulci, stable. Eng- white matter differentiation is otherwise preserved, without evidence of acute infarct. No abnormal extra-axial fluid collections. Moderate paranasal sinus mucosal thickening with bilateral maxillary sinus air- fluid levels. The patient is intubated. No acute bony findings. IMPRESSION: No evidence of an acute intracranial process. Stable small left frontal region of encephalomalacia suggestive of sequelae of remote ischemia - Problems (1) Bacteremia Plan: Cultures: - 06/23 BC: Not done - 06/22 Sputum: Gram Pos Cocci in prs & chs; culture pending - 06/22 BC: Negative - 06/19 BC: Staph aureus, susceptible to Bactrim, Cefazolin, Oxacillin, Tetracycline, and Vancomycin Antibiotics: - Had Vancomycin 06/21-06/23 - Current on IV Meropenem ( 06/20- ) and Cefazolin (06/23- ) Recommendations: - Stop Meropenem - ADD IV Levofloxacin for total of 7 days, 06/24-06/30 - Continue Cefazolin for total of 14 days from 06/23 to 07/06 (repeated BC 06/22 negative) - ID will recommend the antibiotics drug of choice when sputum culture is available Conclusions/Impression: - Bacteremia: On IV Cefazolin and stop Meropenem, add IV Levofloxacin - Aspiration pneumonia vs Pulmonary edema - A-fib RVR - NSTEMI - Status post cardiac arrest/ cardioversion - Acute on chronic diastolic or systolic CHF exacerbation - HTN - Defibrillator presence - History of hepatitis C - Moderate protein calorie malnutrition ID will monitor the patient closely for signs of infection with fever and WBC trends Case has been discussed with Dr. Peguero N Thank you Dr. Bailey for consultation
[2022-06-24] MEDS: Meropenem 1,000 MG in NA CHLORIDE 0.9% 100 ML IV SCH ×2 (08:46→20:34)
[2022-06-24] MEDS: THIAMINE 200 MG/2 ML INJ IVP SCH ×2 (08:46→20:33)
[2022-06-24] MEDS: ENOXAPARIN 100 MG/ML SYR SQ SCH ×2 (08:50→20:33)
[2022-06-24] MEDS: METOPROLOL TAR 25 MG TAB PO SCH ×2 (08:50→20:34)
--- NOTE | 2022-06-24 09:21 | P.CNS ---
Date of Consult: 06/24/22 Reason for Consult: Hypernatremia Requesting Physician: Kenny Bailey Primary Care Provider: unknown Chief Complaint: S/P cardiac arrest/pneumonia History of Present Illness: Patient is a 56-year-old male with a past medical history significant for hypertension, hep C, atrial fibrillation, hyperlipidemia, CHF and noncomplaince with therapy due to financial difficulties. Limited history due to patient being intubated. Patient was brought in via EMS, per EMS patient lost pulse for 2 to 3 minutes. They attempted to intubate the patient and the video but were unsuccessful. Patient was intubated in the ER and cardioverted into sinus rhythm. Patient was evaluated in the ER on the ventilator at 100% with a PEEP of 12 and rate of 20. 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 He has been admitted to this facility multiple times for a.fib with rvr and chf. A recent echo shows an EF of 25%. His labs were significant for pH 7.05 PCO2 78.8 HCO3 20.5 sodium 129 anion gap 16.5 creatinine 1.43 glucose 200 troponin 85.4 BNP 58 439, lactic 4.4. Patient will be admitted under the care of Dr. Birmingham. Cardiology, pulmonology will be consulted for further evaluation and recommendations. Allergies codeine Adverse Reaction (Intermediate, Verified 08/20/17 16:14) Hives/Rash Home medications list reviewed: Yes Home Medications: Amiodarone HCl [Cordarone*] 200 mg PO BID #60 tab 03/10/22 Apixaban [Eliquis] 5 mg PO BID #60 tab 03/10/22 Digoxin [Lanoxin*] 0.125 mg PO DAILY #30 tab 03/10/22 Furosemide [Lasix*] 40 mg PO DAILY #30 tab 03/10/22 Losartan Potassium [Cozaar] 25 mg PO DAILY #30 tab 03/10/22 Spironolactone [Aldactone*] 25 mg PO BID #60 tab 03/10/22 - Past Medical/Surgical History Diabetic: No -: CHF -: Afib 2006 -: Pleural Effusion -: clot "went away""atrium in heart attached to the lead of my device" -: HCV -: HTN -: ICP left chest wall -: umbilical hernia - Family History Mother Medical History: Heart disease, Cancer Father Medical History: Cancer Sister History Unknown: Yes Medical History: Heart disease - Social History Smoking Status: Current every day smoker Alcohol use: Yes CD- Drugs: No Caffeine use: No Place of Residence: Home Review of Systems is unable to be obtained Physical Examination Temp Pulse Resp BP Pulse Ox 99.9 F 108 H 23 H 144/86 H 91 06/24/22 04:00 06/24/22 06:00 06/24/22 06:11 06/24/22 08:50 06/24/22 06:11 General: Comatose HEENT: Atraumatic Neck: Supple Respiratory: Clear to auscultation bilaterally Cardiovascular: No edema, Regular rate/rhythm, No rubs Gastrointestinal: Hypoactive, Non-distended Musculoskeletal: No clubbing, No contractures Integumentary: No rashes, No cyanosis Blood work reviewed in the chart. Imagings Data: EXAM DESCRIPTION: RADChest Single View06/24/2022 6:02 am CLINICAL HISTORY: pneumonia COMPARISON: Chest Single View dated 06/23/2022; Chest Single View dated 06/22/2022; Chest Single View dated 06/21/2022; Chest Single View dated 06/19/2022 TECHNIQUE: Portable AP view of the chest. FINDINGS: Endotracheal tube, enteric tube, and right arm PICC are unchanged in position. Progressive patchy right basal airspace opacities. Retrocardiac opacification and central interstitial prominence but are again present, stable to slightly progressed since the prior exam. No pneumothorax or effusion. Stable moderate cardiomegaly. The mediastinal contours are unchanged. IMPRESSION: Progressive airspace opacities in the right lung base, could reflect atelectasis or pneumonia. EXAM DESCRIPTION: CT - Chest For Pe Angio - 06/19/2022 2:03 pm CLINICAL HISTORY: sob, post CPR COMPARISON: Chest Abd Pelvis Wo Con dated 03/08/2022; Chest For Pe Angio dated 09/22/2017; CTANGIO CHEST FOR PE dated 01/23/2009; Chest Single View dated 06/19/2022 TECHNIQUE: Thin axial CT images of the chest were obtained following administration of 95 mL Isovue 370 IV contrast. Multiplanar reconstructions, and maximum intensity projection reconstructions were generated and reviewed. Exam utilizes a protocol for optimal evaluation of pulmonary arterial tree. All CT scans are performed using dose optimization technique as appropriate and may include automated exposure control or mA/KV adjustment according to patient size. FINDINGS: Extensive streak artifact related to external wires and acute pain, as well as arm positioning and left chest single lead pacer limits evaluation. Pulmonary arteries are normal. No emboli or other suspicious finding. No acute or significant aorta findings. Marked cardiomegaly. No pericardial effusion. Endotracheal tube terminates in the mid thoracic trachea. Enteric tube courses into the stomach, with its tip along the posterior aspect of the fundus. Bilateral small layering pleural effusions, larger on the right. Extensive alveolar and ground-glass opacities, more pronounced throughout the right lung, with mild interlobular septal thickening , and dependent segmental and subsegmental atelectatic changes with some air bronchograms in the right upper and lower lobes. No pneumothorax. No appreciable pleural thickening. No abnormal mediastinal or hilar masses or lymphadenopathy seen. No chest wall mass or abnormal axilliary lymphadenopathy. IMPRESSION: No evidence of acute central pulmonary emboli. Marked cardiomegaly, bilateral patchy alveolar and ground-glass opacities with background interlobular septal thickening, and small effusions. Findings may reflect congestive heart failure with cardiogenic pulmonary edema in the appropriate clinical setting. Superimposed pneumonia cannot be entirely excluded. LEFT VENTRICULAR WALL MOTION: SEVERE GLOBAL HYPOKINESIS DOPPLER/COLOR FLOW: SEE BELOW COMMENTS: 1. SEVERELY DEPRESSED LEFT VENTRICULAR EJECTION FRACTION 25-30% 2. LEFT ATRIAL ENLARGEMENT 3. SEVERE GLOBAL HYPOKINESIS 4. MODERATE MITRAL REGURGITATION 5. SEVERE TRICUSPID REGURGITATION WITH PACEMAKER WIRE PRESENT 6. MILD PULMONIC INSUFFICIENCY Conclusions/Impression: Stage I JASEN may be due to hypovolemia/ dehydration -No NSAIDs -Increase free water flushes through NGT Hypernatremia/ Dehydration -Free water bolus through NGT X1 -Increase free water flushes with tube feedings Hypophosphatemia -Maintain nutrition with tube feeds -Replete prn HTN with CHF -Hold antihypertensives Systolic CHF, chronic Severe TR -Daily weight Hyperglycemia -RISS prn Moderate protein malnutrition Decreased functional ability -Continue tube feeding Toxic Metabolic Encephalopathy Anoxic Encephalopathy? -Continue Thiamine -Start Folic Acid Case reviewed with Dr. Bailey Greater than 30min patient care Thank you kindly for the consultation Critical Care: Yes
[2022-06-24] MEDS: MUPIROCIN 2% OINT 22GM TUBE TOP SCH ×2 (09:42→20:34)
[2022-06-24] MEDS: DEXMEDETOMIDINE HCL 400 MCG in NA CHLORIDE 0.9% 196 ML IV SCH ×2 (09:43→20:02)
[2022-06-24] MEDS: ACETAMINOPHEN 650MG/RECT SUPP PR PRN (11:00)
--- NOTE | 2022-06-24 12:51 | P.PN ---
Subjective Date of Service: 06/24/22 Primary Care Provider: unknown Chief Complaint: S/P cardiac arrest/pneumonia Patient still remains comatose unresponsive. Seen tachycardia and elevated blood pressure once his dexmedetomidine is stopped fever today Review of Systems is unable to be obtained Physical Examination - Vital Signs Temperature: 105 F Blood Pressure: 138/68 Pulse: 137 Respirations: 23 Pulse Ox (%): 93 - Physical Exam General: Comatose Neurological: Other (Patient has no response absent plantar reflexes) Assessment And Plan - Current Problems (Diagnosis) (1) Respiratory failure Current Visit: Yes Status: Acute Plan: Patient is still on a ventilator FiO2 has been declined to 30% chest x-ray shows some improvement fever is probably central blood cultures are all negative staph is sensitive to cefazolin he is also on meropenem Qualifiers: Chronicity: unspecified (2) Atrial fibrillation with RVR Onset Date: 11/19/17 Current Visit: No Status: Acute Plan: Patient's rate gets out of control once she is off dexmedetomidine (3) Anoxic encephalopathy Current Visit: Yes Status: Acute Plan: I strongly suspect he has significant anoxic encephalopathy prognosis is been poor for 48 hours since his been nonresponsive high fever is most likely central patient requirements are declining a neurological consultation possible withdrawal of care Physician Review: Patient Assessed, Agree with Above Assessment and Plan
[2022-06-24] MEDS ORDERED: VITAL HP 1,000 ML BOT RTH SCH (16:46)
[2022-06-24] MEDS ORDERED: FOLIC ACID 5 MG/ML VIAL IVP SCH (17:00)
[2022-06-24] MEDS: AMIODARONE HCL 900 MG in Dextrose 5%-Water 482 ML IV SCH (18:51)
[2022-06-24] MEDS: FOLIC ACID 1 MG in NA CHLORIDE 0.9% 50 ML IV SCH ×2 (18:59→20:32)
--- NOTE | 2022-06-24 19:40 | PN ---
Date of Progress Note: 06/24/2022 Subjective: Seen by bedside. Seems to be unresponsive. Review of Systems: The patient is not responsive. Still on the ventilator. Has some spontaneous foot movements. Physical Examination: Vital Signs: Reviewed. Head and Neck: Pupils are equal, reactive to light. No cervical lymphadenopathy. Neck: Supple. Thyroid is not enlarged. Lungs: Clear to auscultation bilaterally. No rhonchi, rales, or crackles. No accessory muscle use. Heart: Irregular. No extra sounds. Abdomen: Soft, nontender. Bowel sounds positive. No organomegaly. No masses or hernia. No rigidi ty or rebound. Extremities: No clubbing, cyanosis. Intact pulses. Skin: No rashes. Neurologic: Alert, awake. No acute focal deficits appreciated. Investigations: Labs were reviewed. Assessment And Recommendation: 1.Atrial fibrillation, rate is acceptable. Switch him to amiodarone 200 mg twice a day and metoprol ol to be continued. He has an NG tube, he cannot take things by mouth. Continue anticoagulation. 2.Status post respiratory arrest, led to cardiac arrest. He is known to have severe systolic heart failure. The patient needs a neurological evaluation to evaluate the brain function. Recommend alejandra sfer to higher level of care facility. We will reassess the patient once his mental status is better. In the interim, Cardiology will sign off. SR/MODL Voice ID: [id number] Report ID: [id number]
[2022-06-25] MEDS: CEFAZOLIN SODIUM 2 GM in NA CHLORIDE 0.9% 100 ML IVPB SCH ×2 (00:48→09:28)
[2022-06-25] MEDS: DEXMEDETOMIDINE HCL 400 MCG in NA CHLORIDE 0.9% 196 ML IV SCH ×2 (02:16→15:01)
[2022-06-25] MEDS: ACETAMINOPHEN 650MG/RECT SUPP PR PRN ×3 (02:23→22:56)
[2022-06-25 05:02] LABS: Absolute Lymphocytes (CBC) 0.9 K/uL (0.7-4.9); Hematocrit 42.5 % (39.6-49.0); MCV 88.1 fL (80-100); RBC Red Blood Cell Count 4.82 M/uL (4.33-5.43)
[2022-06-25 05:14] LABS: Albumin 2.1 g/dL (3.4-5.0); Bilirubin Total 1.7 mg/dL (0.2-1.0); Magnesium 2.3 mg/dL (1.6-2.4); Phosphorus 2.5 mg/dL (2.5-4.9); Potassium 3.5 mmol/L (3.5-5.1); Protein, Total 5.5 g/dL (6.4-8.2)
--- NOTE | 2022-06-25 06:52 | P.PN ---
Date of Service: 06/25/22 Subjective: Patient remains unresponsive febrile overnight, down to 100.1 still unable to wean precedex withdrawing to pain on both feet ROS: unable to be obtained Physical Exam: Gen: Unresponsive HEENT: ETT and OG tube in place, Mechanical ventilation CV: irregular rate & rhythm, b/l upper and lower extremity trace to 1+ edema; RUE > LUE Pulm: intubated, on mech ventilation, mild b/l crackles, R>L Abd: soft, non-tender, non-distended Skin: annular rash on R flank improving Neuro: Unresponsive, moves b/l feet intermittently / jerking movement; withdraws toes to pain; upward gaze, no other purposeful movement Meneses in place vitals reviewed Problem List: Aspiration pneumonia/ARDS A. fib with RVR Acute respiratory failure with hypoxia and hypercapnia Status post cardiac arrest/ cardioversion Acute on chronic systolic CHF exacerbation Hypertension Defibrillator present History of hepatitis C Chronic alcoholism unclear etiology of cardiac arrest daughter states patient has a defibrillator will get more info and attempt to have it interrogated - no family no what type / when/where it was placed cardiology consulted, suspect respiratory arrest, as troponin not significantly increased Currently not a candidate for cardiac cath at the moment given possible anoxic encephalopathy / unstable recommends ischemic workup once stable Ultrasound to RUE ordered to rule out possible blood clot Chest x-ray negative 06/25 MSSA bacteremia ID consulted 06/24 recommend stopping merrem, change to doxy - initially considering levaquin but will avoid with afib continue cefazolin repeat blood cultures no growth yet worsening fever no obvious worsening of infection possibly drug related vs brain injury tylenol PRN cooling blanket continue tube feeds continue mech ventilation attempt to wean precedex / benzo's to assess neuro function Neuro consulted to assess current mental status - currently unavailable possible etoh withdrawal - significant history of alcohol dependence wean precedex/benzo as tolerated 06/23 AM, pt was on minimal dose, but became tachycardic and coughing after drip stopped; so restarted 06/24 AM precedex on hold, became tachycardic again; restarted VTE: lovenox Code: DNR Dispo: Poor prognosis reviewed with daughters at bedside on 06/24 code status changed to DNR on 06/23] will obtain CT head to further eval
[2022-06-25] MEDS ORDERED: Meropenem 1000 MG/VIAL IV ONE (07:36)
[2022-06-25] MEDS ORDERED: CEFAZOLIN SODIUM 2 GM/VIAL ONE (07:36)
[2022-06-25] MEDS: ENOXAPARIN 100 MG/ML SYR SQ SCH (07:37)
[2022-06-25] MEDS: METOPROLOL TAR 25 MG TAB PO SCH (07:37)
[2022-06-25] MEDS: FENTANYL CITR 100 MCG/2 ML IV PRN (07:38)
[2022-06-25] MEDS: THIAMINE 200 MG/2 ML INJ IVP SCH (07:39)
--- NOTE | 2022-06-25 07:42 | RAD REPORT ---
EXAM DESCRIPTION: [facility]us Single View06/25/2022 6:51 am CLINICAL HISTORY: Shortness of breath COMPARISON: June 24, 2022 FINDINGS: Endotracheal tube with its tip 3.7 centimeters above the top of the aortic arch NG tube not well visualized but probably lies within stomach No significant change in the bilateral pulmonary opacities right greater than left Cardiomegaly persists. Pacemaker lead noted IMPRESSION: No acute abnormalities displayed
[2022-06-25] MEDS ORDERED: KCL 20 MEQ/100 mL IVPB 20 MEQ/100 ML BAG IV SCH (08:00)
[2022-06-25] MEDS: FOLIC ACID 1 MG in NA CHLORIDE 0.9% 50 ML IV SCH (09:25)
[2022-06-25] MEDS: Meropenem 1,000 MG in NA CHLORIDE 0.9% 100 ML IV SCH (09:28)
[2022-06-25] MEDS ORDERED: NA CHLORIDE 0.9% 100 ML ONE ×2 (09:32)
--- NOTE | 2022-06-25 09:58 | P.PN ---
Subjective Date of Service: 06/25/22 Primary Care Provider: unknown Chief Complaint: S/P cardiac arrest/pneumonia Patient still on vent support with 30% FiO2, PeeP of 6, and sat 92%. Febrile in the morning and responded to stimuli. Family members at the bedside. no other major event upon examination Physical Examination - Vital Signs Temperature: 100.1 F Blood Pressure: 135/94 Pulse: 118 Respirations: 22 Pulse Ox (%): 93 - Physical Exam General: Other (not alert; responded to stimuli) Respiratory: Normal air movement, Other (ETT in place and on vent support) Cardiovascular: Normal S1 S2, Edema (2+ upper extremities; +1 lower extremities) Gastrointestinal: Normal bowel sounds, Other (on tube feed) Musculoskeletal: Swelling (2+ upper extremities; +1 lower extremities) Integumentary: Tenderness/swelling (2+ upper extremities; +1 lower extremities) Neurological: Other (not alert; responded to stimuli) Urinary: Meneses catheter (yellow and clear) - Studies active medications Acetaminophen (Acetaminophen 650mg/Rect Supp) 650 mg NC Q4H PRN PRN Reason: fever Last Admin: 06/25/22 02:23 Dose: 650 mg Albuterol Sulfate (Albuterol 2.5 Mg/3 Ml Neb Rekha) 2.5 mg NEB [id number] PRN PRN Reason: WHEEZING Enoxaparin Sodium (Enoxaparin 100 Mg/Ml Syr) 100 mg 1 mg/kg (100 mg) SQ Q12HR ELIS Last Admin: 06/25/22 07:37 Dose: 100 mg Fentanyl Citrate (Fentanyl Citr 100 Mcg/2 Ml) 25 mcg IV Q4H PRN PRN Reason: Pain scale 8-10 (Severe) Last Admin: 06/25/22 07:38 Dose: 25 mcg Amiodarone HCl 900 mg/ (Dextrose) 500 mls @ 0 mls/hr IV CONT ELIS; Protocol Last Admin: 06/24/22 18:51 Dose: 500 mls Meropenem 1,000 mg/ Sodium (Chloride) 100 mls @ 200 mls/hr IV Q12HR ELIS Last Admin: 06/25/22 09:28 Dose: 100 mls Cefazolin Sodium 2 gm/ Sodium (Chloride) 100 mls @ 200 mls/hr IVPB Q8HR ELIS; Protocol Last Admin: 06/25/22 09:28 Dose: 100 mls Dexmedetomidine HCl 400 mcg/ (Sodium Chloride) 200 mls @ 9.662 mls/hr IV TITR [facility]; Protocol Last Admin: 06/25/22 02:16 Dose: 0.4 mcg/kg/hr, 19.3 mls/hr Folic Acid 1 mg/ Sodium (Chloride) 50.2 mls @ 200.8 mls/hr IV DAILY [facility] Last Admin: 06/25/22 09:25 Dose: 50.2 mls Potassium Chloride (Kcl 20 Meq/100 Ml Ivpb (Premix)) 20 meq in 100 mls @ 50 mls/hr IV 1X ELIS; Protocol Stop: 06/25/22 09:59 Lorazepam (Lorazepam 2 Mg/Ml Vial) 2 mg IV Q2H PRN PRN Reason: SEDATION Last Admin: 06/24/22 20:33 Dose: 2 mg Metoprolol Tartrate (Metoprolol Tartrate 5 Mg/5 Ml Inj) 5 mg IV Q6H PRN PRN Reason: HR>120 or SBP >160 Last Admin: 06/24/22 05:07 Dose: 5 mg Metoprolol Tartrate (Metoprolol Tar 25 Mg Tab) 25 mg PO BID [facility] Last Admin: 06/25/22 07:37 Dose: 25 mg Midazolam HCl (Midazolam Hcl 2 Mg/2 Ml Inj) 2 mg IV Q2HP PRN PRN Reason: SEDATION IF ATIVAN INEFFECTIVE Last Admin: 06/24/22 11:15 Dose: 2 mg Nutritional Formula (Vital Hp 1,000 Ml Bot) 0 ml RTH CONT [facility] Last Admin: 06/25/22 03:20 Dose: 60 ml Sodium Chloride (Flush Normal Saline 10 Ml) 10 ml IV BID [facility] Last Admin: 06/25/22 07:40 Dose: 10 ml Thiamine HCl (Thiamine 200 Mg/2 Ml Inj) 200 mg IVP BID [facility] Last Admin: 06/25/22 07:39 Dose: 200 mg Microbiology Data (last 24 hrs): Microbiology 06/19/22 12:40 Blood - Blood Aerobic Blood Culture - Final Staph Aureus 06/19/22 12:40 Blood - Blood Anaerobic Blood Culture - Final Staph Aureus 06/19/22 12:40 Blood - Blood Gram Stain - Final Imagings Data: RAD Chest Single View06/25/2022 FINDINGS: Endotracheal tube with its tip 3.7 centimeters above the top of the aortic arch NG tube not well visualized but probably lies within stomach No significant change in the bilateral pulmonary opacities right greater than left Cardiomegaly persists. Pacemaker lead noted IMPRESSION: No acute abnormalities displayed Assessment And Plan - Current Problems (Diagnosis) (1) Bacteremia Plan: Cultures: - 06/25 Repeated BC: Pending for culture - 06/23 Repeated BC: Gram Pos Cocci in clusters - 06/22 Sputum: Gram Pos Cocci in prs & chs; culture pending - 06/22 BC: Negative - 06/19 BC: Staph aureus (MSSA), susceptible to Bactrim, Cefazolin, Oxacillin, Tetracycline, and Vancomycin Antibiotics: - Had Vancomycin 06/21-06/23 - Current on IV Meropenem ( 06/20- ) and Cefazolin (06/23- ) Recommendations: - Stop Meropenem - Continue Cefazolin now - 06/25 UA Legionella antigen pending for collection - ID will recommend the antibiotics drug of choice when blood culture is available - Plan - Bacteremia: Continue IV Cefazolin - Aspiration pneumonia vs Pulmonary edema - A-fib RVR - NSTEMI - Status post cardiac arrest/ cardioversion - Acute on chronic diastolic or systolic CHF exacerbation - HTN - Defibrillator presence - History of hepatitis C - Moderate protein calorie malnutrition ID will monitor the patient closely for signs of infection with fever and WBC trends Case has been discussed with Dr. Peguero N Physician Review: Patient Assessed, Agree with Above Assessment and Plan
--- NOTE | 2022-06-25 12:03 | RAD REPORT ---
EXAM DESCRIPTION: CT - Head Brain Wo Cont - 06/25/2022 11:39 am CLINICAL HISTORY: Brain anoxia COMPARISON: 2019 TECHNIQUE: Computed axial tomography of the head was obtained. IV contrast was not requested. All CT scans are performed using dose optimization technique as appropriate and may include automated exposure control or mA/KV adjustment according to patient size. FINDINGS: An intracranial bleed is not seen Ventricles and sulci appear minimally smaller when compared to 2019 exam No extra-axial fluid collection is noted. No significant hypodensity within the brain IMPRESSION: Ventricles and sulci appear minimally smaller when compared to the 2019 exam. This is of questionable significance but could potentially indicate subtle cerebral edema. If clinically indicated MRI the brain may be helpful for further evaluation
--- NOTE | 2022-06-25 13:10 | P.PN ---
Subjective Date of Service: 06/25/22 Primary Care Provider: unknown Chief Complaint: S/P cardiac arrest/pneumonia Patient continues to be unresponsive has been nearly a week hemodynamically stable Review of Systems is unable to be obtained Physical Examination - Vital Signs Temperature: 100.1 F Blood Pressure: 135/94 Pulse: 118 Respirations: 22 Pulse Ox (%): 93 - Physical Exam General: Comatose Neurological: Other (Patient has withdrawal from deep painful stimuli of all his extremities pupils fixed he is comatose) Assessment And Plan - Current Problems (Diagnosis) (1) Respiratory failure Current Visit: Yes Status: Acute Plan: Hemodynamically stable only on FiO2 of 30% chest x-ray still shows a right lower lobe infiltrate patient is running a fever most likely central repeat blood cultures pending treated with cefazolin for Staph aureus Qualifiers: Chronicity: unspecified (2) Atrial fibrillation with RVR Onset Date: 11/19/17 Current Visit: No Status: Acute Plan: P rate controlled (3) Anoxic encephalopathy Current Visit: Yes Status: Acute Plan: Patient has significant anoxic encephalopathy repeat CT of the head shows minimal cerebral edema has been over a weeks is on the ventilator discussed with the daughter regarding withdrawal of care patient is also hypernatremia fluid boluses of increased hemodynamically stable Physician Review: Patient Assessed, Agree with Above Assessment and Plan
--- NOTE | 2022-06-25 17:45 | RAD REPORT ---
EXAM DESCRIPTION: US - UPPER EXTREMITY VENOUS UNILATE - 06/25/2022 3:00 pm CLINICAL HISTORY: Swelling of the right arm COMPARISON: None. TECHNIQUE: Real-time sonographic evaluation of the left upper extremity deep venous system was perfo rmed. FINDINGS: Internal jugular vein partially occlusive thrombus. Normal compressibility, flow augmentat ion, phasic flow and spontaneous flow is identified in the remainder left upper extremity deep venous system. Near complete occlusive thrombus of the basilic vein, containing PICC line. A post thrombus of the cephalic vein. IMPRESSION: Internal jugular vein partially occlusive thrombosis. The remainder of the right upper e xtremity deep venous system is patent. Near complete occlusive thrombus of the basilic vein. Occlusive thrombus of the cephalic vein. The findings were communicated to VAIBHAV Almanzar RN on 06/25/2022 at 17:40 hours.
[2022-06-25] MEDS ORDERED: AMIODARONE HCL 450 MG in D5W 241 ML IV SCH ×4 (22:00)
[2022-06-25] MEDS: LORazepam 2 MG/ML VIAL IV PRN (22:54)
[2022-06-25] MEDS: PIPER TAZO 3.375 GM in NA CHLORIDE 0.9% 100 ML IV SCH (22:55)
[2022-06-25 22:58] LABS: Hematocrit 44.8 % (39.6-49.0); Lymphocytes % 18.4 % (15.3-44.8); MCV 87.4 fL (80-100); MPV 9.5 fL (7.6-11.3); RBC Red Blood Cell Count 5.13 M/uL (4.33-5.43)
[2022-06-25 23:00] LABS: Protime INR 1.37
[2022-06-25 23:17] LABS: Arterial Blood Carboxyhemoglob 1.5 % (0-1.5); Blood Gas Oxyhemoglobin 93.5 % (94-97); Blood O2 Saturation 95.9 % (92-98.5)
[2022-06-25 23:20] LABS: Albumin 2.3 g/dL (3.4-5.0); Bilirubin Direct 0.9 mg/dL (0-0.2); Magnesium 2.4 mg/dL (1.6-2.4); Potassium 3.9 mEq/L (3.5-5.1)
[2022-06-26] MEDS: HYDROMORPHONE HCL 1 MG/ML INJ IV PRN ×5 (00:15→20:13)
[2022-06-26] MEDS ORDERED: DEXMEDETOMIDINE HCL 200 MCG/2 ML VIAL ONE (00:45)
[2022-06-26] MEDS: DEXMEDETOMIDINE HCL 400 MCG in NA CHLORIDE 0.9% 196 ML IV SCH (00:48)
[2022-06-26 05:20] LABS: Protime INR 1.38
[2022-06-26 05:34] LABS: Bilirubin Total 1.9 mg/dL (0.2-1.0); Potassium 3.6 mEq/L (3.5-5.1); Protein, Total 5.3 g/dL (6.4-8.2)
[2022-06-26 05:38] LABS: Specific Gravity > 1.030 (1.005-1.030); Urine Bacteria <20 /HPF (<20); Urine Bilirubin NEGATIVE (Negative); Urine Blood Trace (Negative); Urine Clarity Clear (Clear); Urine Color Yellow (Yellow); Urine Glucose NEGATIVE (Negative); Urine Protein 1+ (Negative); Urine Urobilinogen 1+ (Normal); Urine pH 5.5 (5.0-7.0)
[2022-06-26] MEDS ORDERED: AMIODARONE IN DEXTROSE,ISO-OSM 360 MG/200 ML BAG IV ONE (05:42)
[2022-06-26 06:02] VITALS: BMI 31.5
[2022-06-26] MEDS ORDERED: HEPARIN 5000 UNIT/ML 1 ML VIAL IV SCH (08:00)
[2022-06-26] MEDS: PIPER TAZO 3.375 GM in NA CHLORIDE 0.9% 100 ML IV SCH ×2 (08:40→16:49)
[2022-06-26] MEDS ORDERED: AMIODARONE HCL 900 MG in Dextrose 5%-Water 482 ML IV SCH (09:00)
[2022-06-26] MEDS ORDERED: DEXMEDETOMIDINE HCL 200 MCG in NA CHLORIDE 0.9% 98 ML IV SCH (12:00)
[2022-06-26] MEDS: LORazepam 2 MG/ML VIAL IV PRN ×3 (12:11→22:47)
--- NOTE | 2022-06-26 18:56 | RAD REPORT ---
EXAM DESCRIPTION: RAD - Chest Single View - 06/25/2022 11:21 pm CLINICAL HISTORY: 57 years, Male, [facility] COMPARISON: 06/19/2022 FINDINGS: Single view of the chest was obtained portable. Prior films were compared. The lung volume is decreased. Endotracheal tube, nasogastric tube and right upper trauma to PICC line remains in goo d position. There is a single lead pacemaker defibrillator in place. The heart is prominent. The thor acic aorta demonstrate to be unremarkable. Increased interstitial pulmonary markings correspond to in terstitial pulmonary edema. Blunting left lateral CP angle suggest pleural effusion. The rest of th e soft tissue and bony structures demonstrate to be unremarkable. IMPRESSION: Support and lines in good position. Cardiomegaly with interstitial pulmonary edema and small left pleural effusion. Electronically signed by: Deon Pereira MD 06/25/2022 11:35 PM CDT Due to temporary technical issues with the PACS/Fluency reporting system, reports are being signed by the in house radiologists without review as a courtesy to insure prompt reporting. The interpreting radiologist is fully responsible for the content of the report.
--- NOTE | 2022-06-26 19:07 | RAD REPORT ---
EXAM DESCRIPTION: US - Renal Ultrasound-Complete - 06/25/2022 11:51 pm CLINICAL HISTORY: [facility]. TECHNIQUE: Complete retroperitoneal ultrasound COMPARISON: None. FINDINGS: Right Kidney: Normal appearance without evidence of mass lesion, hydronephrosis, or stone formation. The renal cortex demonstrates normal echotexture and thickness measuring 1.4 cm in AP diameter. The right kidney measures 11.0 x 5.2 x 5.0 cm. Left Kidney: Normal appearance without evidence of mass lesion, hydronephrosis, or stone formation. The renal cortex demonstrates normal echotexture and thickness measuring 1.5 cm in AP diameter. The left kidney measures 10.7 x 6.3 x 4.9 cm. There is a small amount of perinephric fluid. Urinary Bladder: The urinary bladder is suboptimally distended. IMPRESSION: 1. Normal-appearing kidneys bilaterally. 2. Small amount of perinephric fluid on the left. 3. Suboptimal distention of the urinary bladder.. Electronically signed by: Brandyn Woods MD 06/26/2022 12:21 AM CDT Due to temporary technical issues with the PACS/Fluency reporting system, reports are being signed by the in house radiologists without review as a courtesy to insure prompt reporting. The interpreting radiologist is fully responsible for the content of the report.
--- NOTE | 2022-06-26 21:35 | P.PN ---
Date of Service: 06/26/22 Subjective: comfort measures initiated yesterday then discovered patient is an organ donor; [facility] contacted withdrawal of care delayed until this morning due to organ donation/harvest eval ROS: unable to be obtained Physical Exam: Gen: Unresponsive HEENT: ETT in place, Mechanical ventilation CV: irregular rate & rhythm, b/l upper and lower extremity trace to 1+ edema; RUE > LUE Pulm: intubated, on mech ventilation, mild b/l crackles, R>L Abd: soft, non-distended Neuro: Unresponsive, moves b/l feet intermittently / jerking movement; withdraws toes to pain; upward gaze, no other purposeful movement Meneses in place vitals reviewed Problem List: Aspiration pneumonia/ARDS A. fib with RVR Acute respiratory failure with hypoxia and hypercapnia Status post cardiac arrest/ cardioversion Acute on chronic systolic CHF exacerbation Hypertension Defibrillator present History of hepatitis C Chronic alcoholism Comfort measures antibiotic resumed per [facility] planned for extubation and monitoring per [facility] protocol today ~11am for possible organ donation RUE edematous, doppler 06/25: Internal jugular vein partially occlusive thrombosis. The remainder of the right upper extremity deep venous system is patent. Near complete occlusive thrombus of the basilic vein. Occlusive thrombus of the cephalic vein. continue [facility] ventilation Code: DNR Dispo: comfort measures, possible organ donation
[2022-06-27] MEDS: HYDROMORPHONE HCL 1 MG/ML INJ IV PRN (00:57)
[2022-06-27] MEDS: PIPER TAZO 3.375 GM in NA CHLORIDE 0.9% 100 ML IV SCH (01:00)
[2022-06-27] MEDS ORDERED: SCOPOLAMINE HYDROBROMIDE PATCH TD SCH (01:09)
[2022-06-27 02:15] VITALS: O2SAT 86
[2022-06-27 02:38] VITALS: BP 119/93; TEMP 98.5
--- NOTE | 2022-06-27 03:51 | P.DS ---
Admission Date: 06/19/22 Discharge Date: 06/27/22 Primary Care Provider: unknown Disposition: Discharge Condition: Reason for Admission: S/P cardiac arrest/pneumonia Brief History of Present Illness: Patient is a 56-year-old male with a past medical history significant for hypertension, hep C, atrial fibrillation, hyperlipidemia, CHF and noncomplaince with therapy due to financial difficulties. Limited history due to patient being intubated. Patient was brought in via EMS, per EMS patient lost pulse for 2 to 3 minutes. They attempted to intubate the patient and the video but were unsuccessful. Patient was intubated in the ER and cardioverted into sinus rhythm. Patient was evaluated in the ER on the ventilator at 100% with a PEEP of 12 and rate of 20. Per lorne review, he sees a organ grinder in [place]. He has been admitted to this facility multiple times for a.fib with rvr and chf. A recent echo shows an EF of 25%. His labs were significant for pH 7.05 PCO2 78.8 HCO3 20.5 sodium 129 anion gap 16.5 creatinine 1.43 glucose 200 troponin 85.4 BNP 58 439, lactic 4.4. Patient will be admitted under the care of Dr. [place]. Cardiology, pulmonology will be consulted for further evaluation and recommendations. Hospital Course: Problem List: Aspiration pneumonia/ARDS A. fib with RVR Acute respiratory failure with hypoxia and hypercapnia Status post cardiac arrest/ cardioversion Acute on chronic systolic CHF exacerbation Hypertension Defibrillator present History of hepatitis C Chronic alcoholism Patient was admitted status post cardiac/respiratory arrest, never had meaningful neurological recovery, CT showed suspected anoxic brain injury. Family elected for comfort measures. Patient peacefully at 0139 tonight, family notified. Patient not a candidate for organ donation 2/2 hx of hep C per [facility] to be released to home. Vital Signs/Physical Exam: Temp Pulse Resp BP Pulse Ox 98.5 F 151 H 28 H 119/93 H 87 L 06/26/22 20:00 06/26/22 20:00 06/26/22 20:13 06/26/22 20:00 06/26/22 20:13 HEENT: Other (pupils fixed, dilated.) Neck: Other (No palpable carotid pulse) Respiratory: Other (no spontaneous resp effort) Laboratory Data at Discharge: WBC 11.20 thou/uL (4.3-10.9) H 06/25/22 22:47 Hgb 14.5 g/dL (13.6-17.9) 06/25/22 22:47 Hct 44.8 % (39.6-49.0) 06/25/22 22:47 Plt Count 165 thou/uL (152-406) D 06/25/22 22:47 PT Cancelled 06/26/22 14:35 INR Cancelled 06/26/22 14:35 APTT 31.1 SECONDS (24.3-36.9) 06/25/22 22:47 Sodium Cancelled 06/26/22 22:30 Potassium Cancelled 06/26/22 22:30 BUN Cancelled 06/26/22 22:30 Creatinine Cancelled 06/26/22 22:30 Glucose Cancelled 06/26/22 22:30 Phosphorus 3.0 mg/dL (2.5-4.9) 06/25/22 22:47 Magnesium 2.4 mg/dL (1.6-2.4) 06/25/22 22:47 Total Bilirubin Cancelled 06/26/22 22:30 AST Cancelled 06/26/22 22:30 ALT Cancelled 06/26/22 22:30 Alkaline Phosphatase Cancelled 06/26/22 22:30 Triglycerides 65 mg/dL (<150) 06/20/22 05:30 Cholesterol < 50 mg/dL (<200) 06/20/22 05:30 HDL Cholesterol 11 mg/dL (40-60) L 06/20/22 05:30 Cholesterol/HDL Ratio 4.55 06/20/22 05:30 Lipase 142 U/L (13-75) H 06/25/22 22:47 Home Medications: Amiodarone HCl [Cordarone*] 200 mg PO BID #60 tab 03/10/22 Apixaban [Eliquis] 5 mg PO BID #60 tab 03/10/22 Digoxin [Lanoxin*] 0.125 mg PO DAILY #30 tab 03/10/22 Furosemide [Lasix*] 40 mg PO DAILY #30 tab 03/10/22 Losartan Potassium [Cozaar] 25 mg PO DAILY #30 tab 03/10/22 Spironolactone [Aldactone*] 25 mg PO BID #60 tab 03/10/22
== END 2022-06-27 01:39 | disposition expired | DRG 870 ==
LOC: ER 12:17 → ERHOLD 15:29 → 3RD-ICU 16:53 → 2ND 06-26 19:50
PROVIDERS: ADMIT Internal Medicine; ATTEND Hospitalist
PROC: 5A1955Z Respiratory Ventilation, Greater than 96 Consecutive Hours (ICD-10-PCS; principal; 2022-06-19)
PROC: 0BH17EZ Insertion of Endotracheal Airway into Trachea, Via Natural or Artificial Opening (ICD-10-PCS; 2022-06-19)
PROC: 02HV33Z Insertion of Infusion Device into Superior Vena Cava, Percutaneous Approach (ICD-10-PCS; 2022-06-19)
DX: A41.01 Sepsis due to Methicillin susceptible Staphylococcus aureus (principal); J69.0 Pneumonitis due to inhalation of food and vomit; J80 Acute respiratory distress syndrome; I50.23 Acute on chronic systolic (congestive) heart failure; G92.9 Unspecified toxic encephalopathy; E87.29 Other acidosis; G93.1 Anoxic brain damage, not elsewhere classified; E44.0 Moderate protein-calorie malnutrition; N17.9 Acute kidney failure, unspecified; E87.0 Hyperosmolality and hypernatremia; I11.0 Hypertensive heart disease with heart failure; E86.0 Dehydration; E83.39 Other disorders of phosphorus metabolism; E78.5 Hyperlipidemia, unspecified; I46.9 Cardiac arrest, cause unspecified; I48.91 Unspecified atrial fibrillation; F10.20 Alcohol dependence, uncomplicated; F17.200 Nicotine dependence, unspecified, uncomplicated; R73.9 Hyperglycemia, unspecified; Z66 Do not resuscitate; Z78.1 Physical restraint status; Z91.190 Patient's noncompliance with other medical treatment and regimen due to financial hardship; Z88.5 Allergy status to narcotic agent; Z91.14 Patient's other noncompliance with medication regimen; Z68.31 Body mass index [BMI] 31.0-31.9, adult; Z79.01 Long term (current) use of anticoagulants; Z79.899 Other long term (current) drug therapy; Z95.810 Presence of automatic (implantable) cardiac defibrillator; Z20.822 Contact with and (suspected) exposure to COVID-19
CPT/HCPCS: 31500; 36415; 36569; 51702; 70450; 71045; 71275; 76770; 80048; 80053; 80061; 80076; 80202; 81001; 82140; 82248; 82550; 82805; 82947; 83036; 83605; 83690; 83735; 83880; 84100; 84484; 85025; 85610; 85730; 86900; 86901; 87040; 87070; 87077; 87186; 87205; 87811; 92960; 93005; 93306; 93971; 94002; 94003; 96365; 96366; 96375; 99291; 99292; J0282; J1160; J1170; J1644; J1650; J1940; J2185; J2250; J2543; J3010; J3411; J3475; J3480; J7030; J7040; J7050; J7060; J7613; P9047; Q9967